=== PATIENT | female | born 1980 | race Asian ===

== ENCOUNTER 2017-12-08 15:21 | Emergency (ER) | payer OTHER ==
[~2017-12-08] VITALS: Ht 162.6 cm; Wt 55.7 kg
[2017-12-08 15:27] VITALS: TEMP 36.7; Ht 162.6 cm; Wt 55.7 kg
[2017-12-08] MEDS ORDERED: KETOROLAC TROMETHAMINE 60 MG/2 ML VIAL IM STA (15:49)
[2017-12-08] MEDS ORDERED: ACETAMINOPHEN 500 MG TAB PO STA (15:49)
[2017-12-08] MEDS ORDERED: IBUP600T44 PO (16:19)
--- NOTE | 2017-12-08 16:37 | DIAGNOSTIC IMAGING REPORT ---
LUMBAR SPINE 5 VIEWS CLINICAL HISTORY: Low back pain. FINDINGS: 5 views of the lumbar spine are compared to study dated 01/27/2010. The skeletal structures are well mineralized. There is no radiographic evidence of fracture or malalignment. Vertebral body height and alignment are maintained. The transverse and spinous processes are intact. There is no evidence of spondylolysis. Tiny anterior osteophytes are seen at several levels. Minimal disc space narrowing is seen at L5-S1. The remaining intervertebral disc spaces are well-maintained. The visualized bony pelvis appears intact. Enthesophytes arise from the anterior superior iliac spine bilaterally. There is a nonobstructed abdominal bowel gas pattern. IMPRESSION: No acute bony abnormality is seen involving the lumbosacral spine. Electronically signed by: Maxime Ho M.D. 12/08/2017 4:36 PM Dictated Date/Time: 12/08/2017 4:34 PM
[2017-12-08] MEDS ORDERED: TRAM-10 PO (16:58)
[2017-12-08] MEDS ORDERED: IBUP-1451 PO (16:58)
[2017-12-08 17:13] VITALS: BP 132/85; PULSE 84; O2SAT 100
--- NOTE | 2017-12-08 17:27 | EMERGENCY ROOM VISIT NOTE ---
History First contact with patient: 15:36 Chief Complaint: BACK INJURY Stated Complaint: BACK INJURY History of Present Illness The patient is a 37 year old female who presents to the Emergency Room with complaints of back pain. The patient reports that she has had worsening discomfort over the past 5 days. The patient reports that this injury happened at work. She is employed at [employer], and has been doing a lot of heavy lifting/assisting. The long-term is also short staffed. The patient reports that after working several days and neuro, she had progressively worsening symptoms. She does have ibuprofen and Flexeril at home that have not helped with her pain. The patient did have a similar back injury at work in early 2016. She was treated with medications and physical therapy with complete resolution of her symptoms. She denies any pain extending into the buttocks or down the legs. She denies any lower extremity weakness, saddle anesthesias or bladder/bowel for Colles'/incontinence. The patient rates her discomfort a 7 out of 10. Review of Systems 10 system review was performed and was negative except for pertinent positives and negatives as indicated in history of present illness Past Medical/Surgical History Medical Problems: (1) Asthma Surgical Problems: (1) No history of previous surgery Family History Unremarkable Social History Smoking Status: Never Smoker Alcohol Use: none Marital Status: Occupation Status: employed Current/Historical Medications Scheduled Ibuprofen Tab (Motrin), 800 MG PO Q8H Scheduled PRN Ibuprofen (Motrin), 600 MG PO Q6H PRN for Pain Tramadol (Ultram), 1-2 TAB PO Q4H PRN for Pain Physical Exam Vital Signs Date Time Temp Pulse Resp B/P (MAP) Pulse Ox O2 Delivery O2 Flow Rate FiO2 12/08/17 17:13 84 16 132/85 100 12/08/17 15:27 36.7 97 18 159/104 100 Room Air Physical Exam CONSTITUTIONAL: Healthy and well nourished. Alert and oriented X 3 with positive affect. Patient appears in mild discomfort. HEENT: Normocephalic, atraumatic. Pupils equal, round and reactive. NECK: Full active range of motion without discomfort. RESPIRATORY: Clear to auscultation bilaterally with no wheezing, crackles, rhonchi or stridor. CARDIOVASCULAR: Regular rate and rhythm with no murmurs, rubs or gallops. GASTROINTESTINAL: Bowel sounds present in all quadrants. Soft and nontender to palpation. MUSCULOSKELETAL: Examination shows tenderness to palpation of the upper and central lumbar paraspinous muscles. She has no focal tenderness over the central lumbar spine or SI joints. Negative logroll. Negative sitting straight leg raise. No palpable muscle spasm noted. INTEGUMENTARY: No rash or other significant dermatologic conditions noted. NEUROLOGIC: No focal neurologic deficits noted. Lower extremities are sensory intact. Medical Decision & Procedures ER Provider Diagnostic Interpretation: My interpretation of lumbar spine x-rays does not show any obvious fractures, subluxations or lordotic reversal. Radiologist report is as follows: LUMBAR SPINE 5 VIEWS CLINICAL HISTORY: Low back pain. FINDINGS: 5 views of the lumbar spine are compared to study dated 01/27/2010. The skeletal structures are well mineralized. There is no radiographic evidence of fracture or malalignment. Vertebral body height and alignment are maintained. The transverse and spinous processes are intact. There is no evidence of spondylolysis. Tiny anterior osteophytes are seen at several levels. Minimal disc space narrowing is seen at L5-S1. The remaining intervertebral disc spaces are well-maintained. The visualized bony pelvis appears intact. Enthesophytes arise from the anterior superior iliac spine bilaterally. There is a nonobstructed abdominal bowel gas pattern. IMPRESSION: No acute bony abnormality is seen involving the lumbosacral spine. Medications Administered Medications (Trade) Dose Ordered Sig/Cinthia Route Start Time Stop Time Status Last Admin Dose Admin Ketorolac Tromethamine (Toradol Inj) 60 mg NOW STAT IM 12/08/17 15:49 12/08/17 15:50 DC 12/08/17 16:34 60 MG Acetaminophen (Tylenol Tab) 1,000 mg NOW STAT PO 12/08/17 15:49 12/08/17 15:50 DC 12/08/17 16:34 1,000 MG Procedure ED Course Patient history and physical exam were performed. Nurse's notes were reviewed. Vital signs were reviewed, showing an elevated blood pressure 159/104. The patient appears in mild discomfort. She was administered IM Toradol and oral Tylenol. X-rays of the lumbar spine were normal. The patient reports that she is not having any relief with Flexeril. She was offered a stronger muscle relaxer, but refused. The patient was provided a prescription for ibuprofen 800 mg and Ultram 50 mg. She was also encouraged to alternate ibuprofen and Tylenol for additional pain relief. The patient was instructed to follow-up with her Worker's Compensation physician for further reevaluation and management. Work limitations were provided. The patient was happy with plan of care, voiced understanding of all discharge instructions, and rated her discomfort a 5 out of 10 at the conclusion of my exam. Blood pressure rechecked prior to discharge was 132/85. I suspect her elevated blood pressure was pain related, however the patient was encouraged to recheck her blood pressure at work, and follow-up with her family doctor with any elevated values. Medical Decision Patient presents to the emergency department with complaint of persistent lower back pain. She does have tenderness to palpation of the paraspinous muscles, and history that is consistent with an acute lumbar strain. She has no radicular symptoms at this time. Clinical exam also is not consistent with cauda equina syndrome. She gives no history to suggest spinal abscess or hematoma. At this point, I do not feel that further advanced imaging or laboratory studies are warranted. Blood Pressure Screening Patient's blood pressure: Elevated blood pressure Blood pressure disposition: Elevated BP felt to be situational Impression Primary Impression: Acute lumbar myofascial strain Additional Impressions: Work related injury Elevated blood pressure reading Departure Information Dispostion Home / Self-Care Prescriptions Tramadol (Ultram) 50 Mg Tab 1-2 TAB PO Q4H Y for Pain, #20 TAB For Initial Treatment Prov: Pranay Chairez PA 12/08/17 Ibuprofen Tab (MOTRIN) 800 Mg Tab 800 MG PO Q8H, #21 TAB For Initial Treatment Prov: Pranay Chairez PA 12/08/17 Forms HOME CARE DOCUMENTATION FORM, IMPORTANT VISIT INFORMATION Patient Instructions [facility] Additional Instructions Continue to intermittently apply heat to the lower back. Ibuprofen 800 mg and/or Tylenol 1000 mg every 8 hours. You may also alternate these medications for more effective pain relief: Ibuprofen --4 HRS--> Tylenol --4 HRS--> ibuprofen --4 HRS--> Tylenol .... Ultram if needed for additional pain relief. Continue with Flexeril 10 mg every 8 hours as needed for muscle spasm. FOR WORK: No lifting greater than 20 pounds until reevaluated by Worker's Compensation physician. Problem Qualifiers Primary Impression: Acute lumbar myofascial strain Encounter type: initial encounter Qualified Codes: S39.012A - Strain of muscle, fascia and tendon of lower back, initial encounter
== END 2017-12-08 17:10 | disposition home or self-care (01) ==
LOC: C.EDB 15:24 → C.EDD 17:10
DX: S39.012A Strain of muscle, fascia and tendon of lower back, initial encounter (principal); X50.0XXA Overexertion from strenuous movement or load, initial encounter; Y92.129 Unspecified place in nursing home as the place of occurrence of the external cause; Y99.0 Civilian activity done for income or pay; R03.0 Elevated blood-pressure reading, without diagnosis of hypertension; J45.909 Unspecified asthma, uncomplicated

== ENCOUNTER 2024-03-01 08:38 | Inpatient (IN) ==
[2024-03-01] MEDS ORDERED: LIDOCAINE 1% LOCAL 20 ML VIAL INFIL PRN (09:10)
--- OUTSIDE RECORDS SUMMARY | 2024-03-01 09:36 | External Medical Summary | Summary of Care ---
Author Name Unknown Organization [facility] Address [address] [place] [address] Phone [phone] Care Team Providers Care Lime Spreader Name Role Phone Shanice Milian MD Primary Care Provider Reason for Visit * Reason Comments Outpatient Testing Encounter Details Date Type Department Care Team (Late st Contact Info) Description 02/26/2024 11:50 AM EDT Laboratory Laboratory, [facility] [address] [place] [id number] [facility] [address] [place] [address] Hypothyroid in , antepartum Allergies No known active allergiesdocumented as of this encounter (statuses as of 02/26/2024) Medications Medication Sig Dispensed Refills Start Date End Date Status 19 Oral Tablet Take 1 Tablet by mouth in the morning. 0 Active Aspirin 81 MG Oral Capsule Take by mouth. 0 Active Levothyroxine Sodium 25 MCG Oral Tablet (Euthyrox)Indications:A cquired hypothyroidism Take 1 Tablet by mouth daily first thing in the morning AND 2 Tablets every other day. (at least 30 min prior to breakfast or other meds). 0 10/20/2023 Active documented as of this encounter (statuses as of 02/26/2024) Active Problems Problem Noted Date Diagnosed Date GBS (group B Streptococcus c arrier), +RV culture, currently 02/19/2024 Hypothyroid in , antepartum 08/01/2023 Overview: Patient states that she was diagnosed with thyroid disorder in 2021 during Fertility evaluation Managed with Levothyroxine 25 mcg daily 10/20/23: alternate with 2 tabs every other day 11/17/23: Repeat TSH 1.1, continue current dose, recheck at 28 wks Lab Results Component Value Date/Time TSH - [facility] 3.87 10/20/2023 08:55 AM TSH - [facility] 3.31 09/08/2018 03:23 PM Last Assessment & Plan: TSH Results: Lab Results Component Value Date/Time TSH - [facility] 3.87 10/20/2023 08:55 AM TSH - [facility] 1.29 08/11/2023 12:28 PM TSH - [facility] 1.28 07/09/2023 11:15 AM TSH - [facility] 3.31 09/08/2018 03:23 PM TSH - [facility] 0.78 07/15/2016 11:41 AM Medication adjusted in response to elevated TSH. If this persists on repeat TSH planned in 4 weeks, please refer back for growth sooner. AMA (advanced maternal age) multigravida 35+ Overview: Age 43 at delivery FOB age 56 Pre implantation genetic testing done: negative Declines genetic referral at this time Patient states that she and FOB had genetic screening & counseling in the past Last Assessment & Plan: Declined NIPT. conceived through in vitro fertilizati on 07/28/2023 Overview: Embryo transfer 06/25/2023 Patient's egg and partner's sperm Pre-implantation genetic testing done: negative Currently following with [facility]ertility Center until 10 weeks Taking oral and vaginal estrogen as instructed by Fertility Last Assessment & Plan: We reviewed slightly increased risk for congenital anomalies, particularly cardiac, in IVF pregnancies as well as IUGR. Etiology of these complications is unknown; perhaps related to underlying cause of the infertility vs. embryo cell culture. The risk is higher when ICSI is used. echo may not detect small VSD (<2mm) but is effective in diagnosis of most cyanotic lesions and many other clinically relevant cardiac defects. Today's exam did not suggest any evidence of cardiac abnormality. , supervision, high-risk 07/28/2023 Leiomyoma of uterus affecting , antepar agustin 07/28/2023 Overview: Uterine fibroid noted on dating scan No problems with this EXAM: US PELVIS TRANS-VAGINAL OB - 07/28/2023 12:26 pm HISTORY: dating and viability COMPARISON: Pelvic ultrasound 06/16/2023 TECHNIQUE: Real time transvaginal sonographic imaging of the pelvis was performed. FINDINGS: CROWN RUMP LENGTH: 9.5 mm equivalent to 7w 0d. MONTSE (CRL): 03/15/2024 HEART RATE: 145 bpm YOLK SAC: Seen MYOMETRIUM: Small subchorionic hemorrhage measuring 9 x 8 x 7 mm. Possible small anterior maternal fibroid measuring 8 x 7 x 6 mm. RIGHT OVARY: 0.0 cm x 2.0 cm x 1.6 cm, 0.0 ml. Unremarkable LEFT OVARY: 2.4 cm x 0.8 cm x 1.0 cm, 1.0 ml. Unremarkable MISCELLANEOUS: No significant free fluid. IMPRESSION 1. Single live intrauterine gestation with MONTSE of 03/15/2024. 2. Small subchorionic hemorrhage measuring 9 x 8 x 7 mm. 3. Possible small anterior maternal fibroid measuring 8 x 7 x 6 mm. Last Assessment & Plan: CONSIDERATIONS: We discussed the finding of uterine fibroids (also referred to as leiomyoma). Women with fibroids may have higher rates of delivery, placenta previa, placenta abruption, abnormal labor, delivery, and malpresentation at term. Fibroids may cause uterine irritability or labor/delivery especially if fibroid is degenerating. RECOMMENDATIONS: If a degenerating fibroid is causing pain prior to 32 weeks gestation and has not responded to acetaminophen or a short course of narcotics, a 48-hour course of NSAID's (i.e. Ibuprofen) may be used. If patient has any single fibroid with diameter greater than 5cm, multiple fibroids, or fibroids with retroplacental or fundal locations, we recommend Maternal Medicine ultrasound for anatomy at 19-20 weeks and then for growth at 28-30 weeks. For patients with previous myomectomy that entered the uterine cavity or involved extensive fibroid removal, we recommend delivery via at 37w0d to 38w6d gestation. 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, not intractable 09/08/2018 Estimated Date of Delivery Comme nts Yes 03/15/2024 Based on Ultraso und documented as of this encounter (statuses as of 02/26/2024) Resolved Problems Problem Noted Date Diagnosed Date Resolved Date 7 weeks gestation of 08/01/2023 02/17/2024 Pap smear for cervical cancer screening 08/28/2022 01/01/2023 HPV (human papilloma virus) infection 08/28/2022 01/07/2023 documented as of this encounter (statuses as of 02/26/2024) Immunizations Name Administration Dates Next Due TDAP (age 10 and older)(Boostrix) 12/15/2023,10/2016 documented as of this encounter Social History Tobacco Use Types Packs/Day Years Used Date Smoking Tobacco: Never Smokeless Tobacco: Never Alcohol Use Standard Drinks/Week Comments No 0 (1 standard drink = 0.6 oz pur e alcohol) PHQ-2 Answer Date Recorded PHQ Adult Total Score 0 11/13/2022 Hunger Vital Sign Answer Date Recorded Within the past 12 months, y ou worried that your food would run out before you got the money to buy more. Never true 10/06/20 23 Within the past 12 months, t he food you bought just didn't last and you didn't have money to get more. Never true 10/06/2023 [place] Depression Scale Answer Date Recorded [place] Depression Scale Total 19 01/29/2024 The thought of harming myself has occurred to me . Never 01/29/2024 Estimated Date of Delivery Comme nts Yes 03/15/2024 Based on Ultraso und Sex and Gender Information Value Date Recorded Sex Assigned at Female 07/23/2021 9:48 PM EDT Gender Identity Female 07/23/2021 9:48 PM EDT Sexual Orientation Straight 07/23/2021 9: 48 PM EDT Job Start Date Occupation Industry Not on file Not on file Not on file documented as of this encounter Plan of Treatment Upcoming Encounters Date Type Department Care Team (Late st Contact Info) Description 03/04/2024 10:15 AM EDT Office Visit Gynecology/Obstetrics Sondra Spivey [address] [place] [address] Brittaney Navarro PA-C [address] [place] [address] [place] [address] Patric Non Stress Tests [facility] [address] [place] [address] 03/11/2024 10:15 AM EDT Office Visit Gynecology/Obstetrics Sondra Spivey [address] [place] [address] Janet Han CRNP [address] [place] [address] Virginie Spivey Stress Tests [facility] [address] [place] [address] Pending Results Name Type Priority Associated Diagnoses Date /Time TSH Lab Routine Hypothyroid in , antepartum 02/26/2024 11:52 AM EDT Health Maintenance Due Date Last Done Comments Hepatitis B (1 of 3 - 19+ 3-dose series) 2000 HPV/Co-Test 2011 Diabetes Screening 07/15/2019 07/15/2016 Lipid Panel 07/15/2021 07/15/2016 COVID-19 Vaccine ( season) 2023 Influenza Vaccine (FLU shot) (#1) 2023 Mammogram 08/29/2023 08/29/2022, 07/02, 07/19/2021 Depression Screening 11/13/2023 11/13/2022 TSH 12/15/2024 12/15/2023, 10/31, 10/20/2023, Additional history exists Cervical Cancer Screening 08/28/2025 Pap Smear 08/28/2025 08/28/2022, 12/2020, 11/09/2018, Additional history exists DTaP,Tdap,and Td Vaccines (3 - Td or Tdap) 12/15/2033 12/15/2023, 07/12/2016 GARDASIL-HPV IMMUNIZATION SERIES Aged Out No longer eligible based on patient's age to complete this topic MENINGOCOCCAL (MENACTRA/MENVEO) Aged Out No longer eligible based on patient's age to complete this topic Pneumococcal Vaccine: Pediatrics (0 to 5 Years) and At-Risk Patients (6 to 64 Years) Aged Out No longer eligible based on patient's age to complete this topic documented as of this encounter Medical Devices Not on filedocumented as of this encounter Visit Diagnoses Diagnosis Hypothyroid in , antepartum Thyroid dysfunction, antepartum documented in this encounter Care Teams Lime Spreader Relationship Specialty Start Date End Date Shanice Milian MD [address] [facility] [place] [address] PCP - General Internal Medicine 11/13/22 documented as of this encounter
--- OUTSIDE RECORDS SUMMARY | 2024-03-01 09:36 | External Medical Summary | Summary of Care ---
Author Name Unknown Organization [facility] Address [address] [place] [address] Phone [phone] Care Team Providers Care Master Control Technician Name Role Phone Shanice Milian MD Primary Care Provider Reason for Visit * Reason Comments Return Visit Non Stress Test Encounter Details Date Type Department Care Team (Late st Contact Info) Description 02/26/2024 11:00 AM EDT Office Visit Gynecology/Obstetri cs Shailesh'florentino Spivey [address] [place] [address] Heather Blanchard MD [address] [place] [address] Patric Non Stress Tests [facility] [address] [place] [address] 37 weeks gestation of *; Hypothyroid in , antepartum; Multigravida of advanced maternal age in third trimester; Leiomyoma of uterus affecting , antepartum; resulting from in vitro fertilization in third trimester; Supervision of high risk in third trimester; GBS (group B Streptococcus carrier), +RV culture, currently Allergies No known active allergiesdocumented as of this encounter (statuses as of 02/28/2024) Medications Medication Sig Dispensed Refills Start Date [...] as of this encounter (statuses as of 02/28/2024) Active Problems Problem Noted Date Diagnosed Date [...] as of this encounter (statuses as of 02/28/2024) Resolved Problems Problem Noted Date Diagnosed Date Resolved Date 7 weeks gestation of 08/01/2023 02/17/2024 Pap smear for cervical cancer screening 08/28/2022 01/01/2023 HPV (human papilloma virus) infection 08/28/2022 01/07/2023 documented as of this encounter (statuses as of 02/28/2024) Immunizations Name Administration Dates Next Due TDAP [...] money to get more. Never true 10/06/2023 [place] Depression Scale Answer Date Recorded [place] Depression Scale Total 19 01/29/2024 The thought [...] on file documented as of this encounter Last Filed Vital Signs Vital Sign Reading Time Taken Comments Blood Pressure 104/74 02/26/2024 10:48 AM EDT Pulse - - Temperature - - Respiratory Rate - - Oxygen Saturation - - Inhaled Oxygen Concentration - - Weight 74.8 kg (165 lb) 02/26/2024 10:48 AM EDT Height 160 cm (5' 3") 02/26/2024 10:48 AM EDT Body Mass Index 29.23 02/26/2024 10:48 AM EDT documented in this encounter Progress Notes * Heather Blanchard MD - 02/26/2024 11:44 AM EDT Ceci Andrade is a 43 year old female here for her routine OB appointment at 37w3d. Patient offers no complaints today. She refers feeling nauseous after drinking milk yesterday. Her Estimated Date of Delivery: 03/15/24 REVIEW OF SYSTEMS: She affirms movement. Denies vaginal bleeding, LOF, regular contractions, N/V, headaches [place] Depression Scale: No data recorded [place] suicide question and score: Score of 3 = Yes, quite often. Score of 2 = Sometimes. Score of 1 = Hardly ever No data recorded ASSESSMENT assessment with Non-stress Test completed on 02/26/2024 at 37 weeks 3 days gestation for indication of AMA heart baseline: 125 bpm Variability: Moderate Decelerations: absent Accelerations: present Contractions: None NST start time: 1048 hrs NST stop time: 1120 hrs NST strip reviewed, interpreted, and approved by OB provider, Dr. Blanchard. NST strip stored in clinic storage file PHYSICAL EXAM: Filed Vitals: 02/26/24 1048 BP: 104/74 Weight: 74.8 kg (165 lb) Height: 1.6 m (5' 3") +FHT 125 Fundal height 36 cm ASSESSMENT/PLAN: (O99.280, E03.9) Hypothyroid in , antepartum Plan: TSH (O09.523) Multigravida of advanced maternal age in third trimester Plan: Delivery at 39 weeks (O34.10, D25.9) Leiomyoma of uterus affecting , antepartum Plan: No intervention is indicted at this time. (O09.819) conceived through in vitro fertilization Plan: The patient has been following up with [facility]. (O09.90) , supervision, high-risk Plan: Patient is status post MFM consult. (O99.820) GBS (group B Streptococcus carrier), +RV culture, currently Plan: Patient will need antibiotics during labor. (Z3A.37) 37 weeks gestation of (primary encounter diagnosis) Plan: - labor precautions and kick counts reviewed - RTO in 1 week Heather Blanchard MD documented in this encounter Plan of Treatment Upcoming Encounters Date Type Department Care Team (Late st Contact Info) Description 03/04/2024 10:15 AM EDT Office Visit Gynecology/Obstetrics Sondra Spivey [address] [place] [address] Brittaney Navarro PA-C [address] [place] [address] [place] [address] Patric, Non Stress Tests [facility] [address] [place] [address] 03/11/2024 10:15 AM EDT Office Visit Gynecology/Obstetrics Sondra Spivey [address] [place] [address] Janet Han CRNP [address] [place] [address] Spivey, Non Stress Tests [facility] [address] [place] [address] Health Maintenance Due Date Last Done Comments Hepatitis B (1 of 3 - 19+ 3-dose series) 2000 HPV/Co-Test 2011 Diabetes Screening 07/15/2019 07/15/2016 Lipid Panel 07/15/2021 07/15/2016 COVID-19 Vaccine ( season) 2023 Influenza Vaccine (FLU shot) (#1) 2023 Mammogram 08/29/2023 08/29/2022, 07/02, 07/19/2021 Depression Screening 11/13/2023 11/13/2022 TSH 02/25/2025 02/26/2024, 12/01, 11/17/2023, Additional history exists Cervical Cancer Screening 08/28/2025 Pap Smear 08/28/2025 08/28/2022, 09/0 12/2020, 11/09/2018, Additional history exists DTaP,Tdap,and Td [...] Not on filedocumented as of this encounter Results * TSH (02/26/2024 11:52 AM EDT) TSH 1.35 0.27 - 4.20 uIU/mL 02/26/2024 11:17 PM EDT LABORATORY [facility] Blood Venous blood specimen / Unknown Venipuncture / Unknown 02/26/2024 11:52 AM EDT 02/26/2024 11:52 AM EDT Heather Blanchard MD LAB BLOOD ORD ERABLES LABORATORY [facility] [address] [facility] [place] [address] documented in this encounter Visit Diagnoses Diagnosis 37 weeks gestation of - Primary state, incidental Hypothyroid in , antepartum Thyroid dysfunction, antepartum Multigravida of advanced maternal age in third trimester Leiomyoma of uterus affecting , antepartum resulting from in vitro fertilization in third trimester Supervision of high risk in third trimester Unspecified high-risk GBS (group B Streptococcus carrier), +RV culture, currently Supervision of other high-risk documented in this encounter Care Teams Master Control Technician Relationship Specialty Start Date End Date Shanice Milian MD [address] [facility] [place] [address] PCP - General Internal Medicine 11/13/22 documented as of this encounter
--- OUTSIDE RECORDS SUMMARY | 2024-03-01 09:37 | External Medical Summary | Summary of Care ---
Author Name Unknown Organization [facility] Address [address] [facility] [address] Phone [phone] Care Team Providers Care Door Machine Operator Name Role Phone Shanice Milian MD Primary Care Provider Reason for Visit * Reason Comments Return Visit Encounter Details Date Type Department Care Team (Latest Contact Info) Description 01/29/2024 1:30 PM EST Office Visit Gynecology/Obstetric s Sondra Spivey [address] [place] [address] Ekaterina Bennett PA-C [address] [place] [address] Supervision of high risk in third trimester*; Multigravida of advanced maternal age in third trimester; resulting from in vitro fertilization in third trimester; Leiomyoma of uterus affecting , antepartum; Hypothyroid in , antepartum Allergies No known active allergiesdocumented as of this encounter (statuses as of 01/29/2024) Medications Medication Sig Dispensed Refills Start Date [...] as of this encounter (statuses as of 01/29/2024) Active Problems Problem Noted Date Diagnosed Date Hypothyroid in , antepartum 08/01/2023 Overview: Patient [...] weeks, please refer back for growth sooner. 7 weeks gestation of 08/01/2023 AMA (advanced maternal age) multigravida 35+ Overview: [...] as of this encounter (statuses as of 01/29/2024) Resolved Problems Problem Noted Date Diagnosed Date Resolved Date Pap smear for cervical cancer screening 08/28/2022 01/01/2023 HPV (human papilloma virus) infection 08/28/2022 01/07/2023 documented as of this encounter (statuses as of 01/29/2024) Immunizations Name Administration Dates Next Due TDAP [...] money to get more. Never true 10/06/2023 [place] Depression Scale Answer Date Recorded [place] Depression Scale Total 19 01/29/2024 The thought [...] Sign Reading Time Taken Comments Blood Pressure 118/78 01/29/2024 1:14 PM EST Pulse - - Temperature - - Respiratory Rate - - Oxygen Saturation - - Inhaled Oxygen Concentration - - Weight 71.7 kg (158 lb) 01/29/2024 1:14 PM EST Height 160 cm (5' 3") 01/29/2024 1:14 PM EST Body Mass Index 27.99 01/29/2024 1:14 PM EST documented in this encounter Progress Notes * Ekaterina Bennett PA-C - 01/29/2024 1:28 PM EST 33w3d Doing well, denies VB, LOF, contractions. Pos FM. Reviewed [place]. Reports feels she is managing okay, does cry daily. Sister is support system. Has started Unisom taking about twice weekly to help sleep. Feels this is helping as sleep quality better. Avoids on days she has to work next day. Reviewed treatment for depression/anxiety she declines at this time. NST to start weekly at 38 weeks RTC in 2 weeks Ekaterina Bennett PA-C documented in this encounter Nursing Notes * Jeaneth Thorne LPN - 01/29/2024 1:18 PM EST 33w3d Denies concerns. documented in this encounter Plan of Treatment Upcoming Encounters Date Type Department Care Team (Late st Contact Info) Description 02/09/2024 9:30 AM EDT Office Visit Gynecology/Obstetrics [facility] [address] [facility] [place] [address] Loni Eller, [address] [place] [address] Health Maintenance Due Date Last Done Comments Hepatitis B (1 of 3 - 19+ 3-dose series) 2000 HPV/Co-Test 2011 Diabetes Screening 07/15/2019 07/15/2016 Lipid Panel 07/15/2021 07/15/2016 COVID-19 Vaccine (24 season) 2023 Influenza Vaccine (FLU shot) (#1) [...] as of this encounter Visit Diagnoses Diagnosis Supervision of high risk in third trimester- Primary Unspecified high-risk Multigravida of advanced maternal age in third trimester resulting from in vitro fertilization in third trimester Leiomyoma of uterus affecting , antepartum Hypothyroid in , antepartum Thyroid dysfunction, antepartum documented in this encounter Care Teams Door Machine Operator Relationship Specialty Start Date End Date Shanice Milian MD [address] [place] [address] PCP - General Internal Medicine 11/13/22 documented as of this encounter
--- OUTSIDE RECORDS SUMMARY | 2024-03-01 09:37 | External Medical Summary | Summary of Care ---
Author Name Unknown Organization [facility] Address [address] [place] [facility] [place] [place] [address] Phone [phone] Care Team Providers Care It Business Process Architect Name Role Phone Shanice Milian MD Primary Care Provider Reason for Visit * Reason Comments Return Visit Encounter Details Date Type Department Care Team (Late st Contact Info) Description 02/17/2024 9:15 AM EDT Office Visit Gynecology/Obstetri cs Sondra Spivey [address] [facility] [place] [address] Isabela Ingram CRNP [address] [facility] [address] Virginie Spivey Stress Tests [facility] [address] [place] [address] Supervision of high risk in third trimester*; Multigravida of advanced maternal age in third trimester; resulting from in vitro fertilization in third trimester; Leiomyoma of uterus affecting , antepartum; Hypothyroid in , antepartum Allergies No known active allergiesdocumented as of this encounter (statuses as of 02/17/2024) Medications Medication Sig Dispensed Refills Start Date [...] as of this encounter (statuses as of 02/17/2024) Active Problems Problem Noted Date Diagnosed Date [...] as of this encounter (statuses as of 02/17/2024) Resolved Problems Problem Noted Date Diagnosed Date Resolved Date 7 weeks gestation of 08/01/2023 02/17/2024 Pap smear for cervical cancer screening 08/28/2022 01/01/2023 HPV (human papilloma virus) infection 08/28/2022 01/07/2023 documented as of this encounter (statuses as of 02/17/2024) Immunizations Name Administration Dates Next Due TDAP [...] money to get more. Never true 10/06/2023 [place] Depression Scale Answer Date Recorded [place] Depression Scale Total 19 01/29/2024 The thought [...] Reading Time Taken Comments Blood Pressure 118/78 02/17/2024 9:07 AM EDT Pulse - - Temperature - - Respiratory Rate - - Oxygen Saturation - - Inhaled Oxygen Concentration - - Weight 73.5 kg (162 lb) 02/17/2024 9:07 AM EDT Height - - Body Mass Index 28.7 02/09/2024 9:22 AM EDT documented in this encounter Progress Notes * Isablea Ingram CRNP - 02/17/2024 9:09 AM EDT 36w1d Good movement. Occasional cramping but no regular ctx, leaking, bleeding. Followed by MFM for growth scans. Discussed peds, will likely use [facility]. Provided labor instructions and CBE class information. Reviewed MFM recommendation for delivery by [facility] due to AMA and IVF , pt agreeable to scheduling this. GBS swab today. Continue weekly visits/NSTs. Compensation And Benefits Administrator Documentation Provider requested children's tutor nursery. Name of children's tutor nursery: Kusum Guillermo LPN ASSESSMENT assessment with Non-stress Test completed on 02/17/2024 at 36w 1d gestation for indication of advanced maternal age and IVF heart baseline: 130 bpm Variability: Moderate Decelerations: absent Accelerations: present Contractions: irritability NST start time: 904 NST stop time: 929 NST strip reviewed, interpreted, and approved by OB provider, PONCHO Hernández . NST strip stored in clinic storage file documented in this encounter Plan of Treatment Upcoming Encounters Date Type Department Care Team (Late st Contact Info) Description 02/26/2024 11:00 AM EDT Office Visit Gynecology/Obstetrics Sondra Spivey [address] [place] [address] Heather Blanchard MD [address] [facility] [address] Patric, Non Stress Tests Romario [address] [place] [address] 03/04/2024 10:15 AM EDT Office Visit Gynecology/Obstetrics Sondra Spivey [address] [place] [address] Brittaney Navarro PA-C [address] [place] [address] Spivey, Non Stress Tests Romario [address] [place] [address] 03/11/2024 10:15 AM EDT Office Visit Gynecology/Obstetrics Sondra Spivey [address] [place] [address] Janet Han CRNP [address] [place] [address] Patric, Non Stress Tests Romario [address] [place] [address] Pending Results Name Type Priority Associated Diagnoses Date /Time GROUP B STREP CULTURE/PCR Lab Routine Supervision of high risk in third trimester 02/17/2024 10:04 AM EDT Scheduled Orders Name Type Priority Associated Diagnoses Orde r Schedule GROUP B STREP CULTURE/PCR Lab Routine Supervision of high risk in third trimester Expected: 02/17/2024, Expires: 02/16/2025 Health Maintenance Due Date Last Done Comments [...] antepartum documented in this encounter Care Teams It Business Process Architect Relationship Specialty Start Date End Date Shanice Milian MD [address] [facility] [place] [address] PCP - General Internal Medicine 11/13/22 documented as of this encounter
--- OUTSIDE RECORDS SUMMARY | 2024-03-01 09:37 | External Medical Summary | Summary of Care ---
Author Name Unknown Organization [facility] Address [address] [place] [address] Phone [phone] Care Team Providers Care Environmental Services Lead Name Role Phone Shanice Milian MD Primary Care Provider Encounter Details Date Type Department Care Team (Latest Contact Info) Description 01/15/2024 2:30 PM EST Office Visit Special Services Supervisor Obstetrics [facility], [address] [place] [address] Cynthia Alvarado, DO [address] [place], [place] [phone] resulting from in vitro fertilization in third trimester*; Multigravida of advanced maternal age in third trimester; 31 weeks gestation of ; Ultrasound for screening for growth restriction Allergies No known active allergiesdocumented as of this encounter (statuses as of 01/15/2024) Medications Medication Sig Dispensed Refills Start Date [...] as of this encounter (statuses as of 01/15/2024) Active Problems Problem Noted Date Diagnosed Date [...] as of this encounter (statuses as of 01/15/2024) Resolved Problems Problem Noted Date Diagnosed Date Resolved Date Pap smear for cervical cancer screening 08/28/2022 01/01/2023 HPV (human papilloma virus) infection 08/28/2022 01/07/2023 documented as of this encounter (statuses as of 01/15/2024) Immunizations Name Administration Dates Next Due TDAP [...] money to get more. Never true 10/06/2023 Estimated Date of Delivery Comme nts Yes 03/15/2024 Based on Ultraso und Sex and Gender Information Value Date Recorded Sex Assigned at Female 07/23/2021 9:48 PM EDT Gender Identity Female 07/23/2021 9:48 PM EDT Sexual Orientation Straight 07/23/2021 9: 48 PM EDT Job Start Date Occupation Industry Not on file Not on file Not on file documented as of this encounter Progress Notes * Cynthia Alvarado DO - 01/15/2024 3:27 PM EST Ceci presented today at 31w3d for an ultrasound for the following indications: resulting from in vitro fertilization in third trimester Multigravida of advanced maternal age in third trimester 31 weeks gestation of Ultrasound for screening for growth restriction Ultrasound summary: Patient presented at 31w 6d for growth assessment. Normal growth with EFW 1757 g at 26%ile. Normal JCARLOS at 12.8 cm. Cephalic presentation. I reviewed the ultrasound images. Ceci was given the opportunity to meet with me if she had any questions. Please refer to the ultrasound report for additional details about today's ultrasound examination. RECOMMENDATIONS: Follow up with MFM for ultrasound as clinically indicated. Weekly NSTs at 38 weeks. See prior formal MFM consultation note. Thank you for allowing us to participate in the care of this patient. Please call with any questions. Cynthia Alvarado DO 01/15/2024 3:27 PM documented in this encounter Plan of Treatment Upcoming Encounters Date Type Department Care Team (Late st Contact Info) Description 01/16/2024 4:15 PM EST Office Visit Gynecology/Obstetrics [facility] [address] [place] [address] Yon Hair MD [address] [place] [address] Health Maintenance Due Date Last Done Comments Hepatitis B (1 of 3 - 3-dose series) 1981 COVID-19 Vaccine (#1) 1981 HPV/Co-Test 2011 Diabetes Screening 07/15/2019 07/15/2016 Lipid Panel 07/15/2021 07/15/2016 Influenza Vaccine (FLU shot) (#1) 2023 Mammogram [...] as of this encounter Visit Diagnoses Diagnosis resulting from in vitro fertilization in third trimester- Primary Multigravida of advanced maternal age in third trimester 31 weeks gestation of state, incidental Ultrasound for screening for growth restriction screening for growth retardation using ultrasonics documented in this encounter Care Teams Environmental Services Lead Relationship Specialty Start Date End Date Shanice Milian MD [address] [place] [address] PCP - General Internal Medicine 11/13/22 documented as of this encounter
--- OUTSIDE RECORDS SUMMARY | 2024-03-01 09:37 | External Medical Summary ---
Author Name Unknown Address Unknown Organization [id number]:[facility] [address] [facility] [address] Laboratory Report Ordering Provider Test Date Status JORGE GRANDE 12/15/2023 12:07:50 Final Observation Date Value Abnormality Reference (Units ) Status WBC, Total 12/15/2023 12:07:50 9.94 4.00-10.8 0 (K/uL) Final RBC 12/15/2023 12:07:50 4.35 3.85-5.15 (M/uL) Final Hemoglobin 12/15/2023 12:07:50 13.8 12.0-15.3 (g/dL) Final Anemia reflex testing trigge rs on a HGB < 12.0 for Females and HGB < 13.0 for Males in accordance with the WHO Anemia Guidelines HCT 12/15/2023 12:07:50 40.2 36.0-45.2 (%) Final MCV 12/15/2023 12:07:50 92.4 81.5-97.5 (fL) Final MCH 12/15/2023 12:07:50 31.7 27.0-34.0 (pg) Final MCHC 12/15/2023 12:07:50 34.3 32.0-36.0 (g/dL) Final RDW 12/15/2023 12:07:50 12.6 11.5-15.5 (%) Final Platelets 12/15/2023 12:07:50 207 140-400 (K /uL) Final MPV 12/15/2023 12:07:50 10.4 6.6-11.1 ( fL) Final Nucleated erythrocytes/100 leukocytes [Ratio] in Blood by Automated count 12/15/2023 12:07:50 0 <=0 (/100 WBCs) Fi nal Performing Location [facility] [address] [facility] [address]
--- OUTSIDE RECORDS SUMMARY | 2024-03-01 09:37 | External Medical Summary | Summary of Care ---
Author Name Unknown Organization [facility] Address [address] [facility] [address] Phone [phone] Care Team Providers Care Sheet Metal Shop Helper Name Role Phone Shanice Milian MD Primary Care Provider Reason for Visit * Reason Comments Return Visit Encounter Details Date Type Department Care Team (Latest Contact Info) Description 01/16/2024 4:15 PM EST Office Visit Gynecology/Obstetric [facility] [address] [place] [address] Yon Hair MD [address] [place] [address] Multigravida of advanced maternal age in third trimester*; resulting from in vitro fertilization in third trimester; Supervision of high risk in third trimester; Leiomyoma of uterus affecting , antepartum; Hypothyroid in , antepartum Allergies No known active allergiesdocumented as of this encounter (statuses as of 01/16/2024) Medications Medication Sig Dispensed Refills Start Date [...] as of this encounter (statuses as of 01/16/2024) Active Problems Problem Noted Date Diagnosed Date [...] as of this encounter (statuses as of 01/16/2024) Resolved Problems Problem Noted Date Diagnosed Date Resolved Date Pap smear for cervical cancer screening 08/28/2022 01/01/2023 HPV (human papilloma virus) infection 08/28/2022 01/07/2023 documented as of this encounter (statuses as of 01/16/2024) Immunizations Name Administration Dates Next Due TDAP [...] Sign Reading Time Taken Comments Blood Pressure 112/60 01/16/2024 4:10 PM EST Pulse - - Temperature - - Respiratory Rate - - Oxygen Saturation - - Inhaled Oxygen Concentration - - Weight 71.2 kg (157 lb) 01/16/2024 4:10 PM EST Height 160 cm (5' 3") 01/16/2024 4:10 PM EST Body Mass Index 27.81 01/16/2024 4:10 PM EST documented in this encounter Progress Notes * Yon Hair MD - 01/16/2024 4:22 PM EST 1st time seeing pt Doing well AMA RTC 2 weeks * Karen Garcia LPN - 01/16/2024 4:11 PM EST 31w4d Abd cramping from time to time documented in this encounter Plan of Treatment Upcoming Encounters Date Type Department Care Team (Late st Contact Info) Description 01/29/2024 1:30 PM EST Office Visit Gynecology/Obstetrics [facility] [address] [place] [address] Ekaterina Bennett PA-C [address] [place] [address] Health Maintenance Due Date Last Done Comments Hepatitis B (1 of 3 - 19+ 3-dose series) 2000 HPV/Co-Test 2011 Diabetes Screening 07/15/2019 07/15/2016 Lipid Panel 07/15/2021 07/15/2016 COVID-19 Vaccine (2022-24 season) 2023 Influenza Vaccine (FLU shot) (#1) 2023 Mammogram 08/29/2023 08/29/2022, 0805/2021, 07/19/2021 Depression Screening 11/13/2023 11/13/2022 TSH 12/15/2024 [...] as of this encounter Visit Diagnoses Diagnosis Multigravida of advanced maternal age in third trimester- Primary resulting from in vitro fertilization in third trimester Supervision of high risk in third trimester Unspecified high-risk Leiomyoma of uterus affecting , antepartum Hypothyroid in , antepartum Thyroid dysfunction, antepartum documented in this encounter Care Teams Sheet Metal Shop Helper Relationship Specialty Start Date End Date Shanice Milian MD [address] [place] [address] PCP - General Internal Medicine 11/13/22 documented as of this encounter
--- OUTSIDE RECORDS SUMMARY | 2024-03-01 09:37 | External Medical Summary ---
Author Name Unknown Address Unknown Organization K01:[facility]ATORY [facility] - [address] [place] [address] Laboratory Report Ordering Provider Test Date Status JOSE MARTIN BURCH 02/26/2024 11:52:14 Final Observation Date Value Abnormality Reference (Units ) Status TSH 02/26/2024 11:52:14 1.35 0.27-4.20 (uIU/mL) Final Performing Location LAB[facility]ATORY [facility] - [address] [place] [address]
--- OUTSIDE RECORDS SUMMARY | 2024-03-01 09:37 | External Medical Summary | Summary of Care ---
Author Name Unknown Organization [facility] Address [address] [facility] [address] Phone [phone] Care Team Providers Care Commodity Buyer Name Role Phone Shanice Milian MD Primary Care Provider Encounter Details Date Type Department Care Team (Late st Contact Info) Description 01/29/2024 [facility]phone [facility] [address] [place] [address] Ekaterina Bennett PA-C [address] [place] [address] Allergies No known active allergiesdocumented as of [...] money to get more. Never true 10/06/2023 [place] Depression Scale Answer Date Recorded [place] Depression Scale Total 19 01/29/2024 The thought [...] on file documented as of this encounter Miscellaneous Notes * Telephone Encounter - Agustina Vizcaino MED ASSIST - 01/29/2024 4:08 PM EST Will schedule with pt at 02/08 return appt * Telephone Encounter - Yvonne Gaston OSA - 01/29/2024 1:52 PM EST Needs nst starting at 38 weeks documented in this encounter Plan of Treatment Upcoming Encounters Date Type Department Care Team (Late st Contact Info) Description 02/09/2024 9:30 AM EDT Office Visit Gynecology/Obstetrics [facility] [address] [facility] [place] [address] Loni Eller [facility] [address] [facility] [place] [address] Health Maintenance Due Date Last Done Comments Hepatitis B (1 of 3 - 19+ 3-dose series) 2000 HPV/Co-Test 2011 Diabetes Screening 07/15/2019 07/15/2016 Lipid Panel 07/15/2021 07/15/2016 COVID-19 Vaccine ( season) 2023 Influenza Vaccine (FLU shot) (#1) 2023 Mammogram 08/29/2023 08/29/2022, 07/02, 07/19/2021 Depression Screening 11/13/2023 11/13/2022 TSH 12/15/2024 12/15/2023, 10/31, 10/20/2023, Additional history exists Cervical Cancer Screening 08/28/2025 Pap Smear 08/28/2025 08/28/2022, 0912/2020, 11/09/2018, Additional history exists DTaP,Tdap,and Td Vaccines [...] Not on filedocumented as of this encounter Care Teams Commodity Buyer Relationship Specialty Start Date End Date Shanice Milian MD [address] [place] [address] PCP - General Internal Medicine 11/13/22 documented as of this encounter
--- OUTSIDE RECORDS SUMMARY | 2024-03-01 09:37 | External Medical Summary ---
Author Name Unknown Address Unknown Organization [id number]:[facility] [place] - [facility] [address] [place] [address] Laboratory Report Ordering Provider Test Date Status BRIDGER ALCALA 02/17/2024 10:04:22 Final Observation Date Value Abnormality Reference (Units ) Status Streptococcus agalactiae DNA [Presence] in Specimen by DEANGELO with probe detection 02/17/2024 10:04:22 Positive Abnormal Negative Final Group B Streptococcus detect ed by culture-enhanced PCR (amplified probe).
The collection of vaginal/rectal swab specimen combinations (FDA approved specimen type) is optimal for the detection of Group B Streptococcus. Single source collection (vaginal only or rectal only) or alternate specimen sources may lead to false negative results. Performing Location [facility]ORY [facility] - [address] [place] [address]
--- OUTSIDE RECORDS SUMMARY | 2024-03-01 09:37 | External Medical Summary ---
Author Name Unknown Address Unknown Organization K01:[facility] - [address] [place] [address] Laboratory Report Ordering Provider Test Date Status JORGE GRANDE 12/15/2023 12:07:50 Final Observation Date Value Abnormality Reference (Units ) Status Treponema pallidum Ab [Presence] in Serum by Immunoassay 12/15/2023 12:07:50 Nonreactive Nonreactive Final No serologic evidence of syp hilis. No additional testing clinicially indicated at this time. Consider repeat testing in 2-4 weeks if acute or primary syphilis is suspected. Performing Location [facility] - [address] [place] [address]
--- OUTSIDE RECORDS SUMMARY | 2024-03-01 09:37 | External Medical Summary | Summary of Care ---
Author Name Unknown Organization [facility] Address [address] [place] [address] Phone [phone] Care Team Providers Care Food Service Manager Name Role Phone Shanice Milian MD Primary Care Provider Reason for Visit * Reason Comments Return Visit Encounter Details Date Type Department Care Team (Late st Contact Info) Description 02/09/2024 9:30 AM EDT Office Visit Gynecology/Obstetri [facility] [address] [place] [address] Loni Eller, [facility] [address] [place] [address] Multigravida of advanced maternal age in third trimester*; resulting from in vitro fertilization in third trimester; Supervision of high risk in third trimester; Leiomyoma of uterus affecting , antepartum; Hypothyroid in , antepartum Allergies No known active allergiesdocumented as of this encounter (statuses as of 02/12/2024) Medications Medication Sig Dispensed Refills Start Date [...] as of this encounter (statuses as of 02/12/2024) Active Problems Problem Noted Date Diagnosed Date [...] as of this encounter (statuses as of 02/12/2024) Resolved Problems Problem Noted Date Diagnosed Date Resolved Date Pap smear for cervical cancer screening 08/28/2022 01/01/2023 HPV (human papilloma virus) infection 08/28/2022 01/07/2023 documented as of this encounter (statuses as of 02/12/2024) Immunizations Name Administration Dates Next Due TDAP [...] money to get more. Never true 10/06/2023 [place] Depression Scale Answer Date Recorded [place] Depression Scale Total 19 01/29/2024 The thought [...] Sign Reading Time Taken Comments Blood Pressure 116/78 02/09/2024 9:22 AM EDT Pulse - - Temperature - - Respiratory Rate - - Oxygen Saturation - - Inhaled Oxygen Concentration - - Weight 72.6 kg (160 lb) 02/09/2024 9:22 AM EDT Height 160 cm (5' 3") 02/09/2024 9:22 AM EDT Body Mass Index 28.34 02/09/2024 9:22 AM EDT documented in this encounter Progress Notes * Loni Eller CNM - 02/09/2024 9:38 AM EDT Ceci Andrade is a 43 year old female here for her routine OB appointment at 35w0d Her Estimated Date of Delivery: 03/15/24 REVIEW OF SYSTEMS: She affirms movement. Denies vaginal bleeding, LOF, contractions, N/V, and RUQ pain. +Headaches upon waking, go away on their own. Small amounts of blurry vision. Difficulty with reading. Not seeing spots. Does not last long. States her eyes adjust quickly. PHYSICAL EXAM: Filed Vitals: 02/09/24 0922 BP: 116/78 Weight: 72.6 kg (160 lb) Height: 1.6 m (5' 3") +FHT 130-140bpm Fundal height: 33cm ASSESSMENT/PLAN: (O09.819) conceived through in vitro fertilization (O09.93) Supervision of high risk in third trimester (O34.10, D25.9) Leiomyoma of uterus affecting , antepartum (O99.280, E03.9) Hypothyroid in , antepartum Plan: -Continue current dose of thyroid medication (O09.529) AMA (advanced maternal age) multigravida 35+ (primary encounter diagnosis) Plan: -reviewed warning signs of pre-eclampsia; patient to notify provider for any ongoing STREET, vision changes, or RUQ pain -Start NSTs at 36 weeks due to IVF - labor precautions and kick counts reviewed - GBS swab collected today - RTO in 1 week Loni Eller CNM documented in this encounter Nursing Notes * Jeaneth Thorne LPN - 02/09/2024 9:25 AM EDT 35w0d Denies concerns. documented in this encounter Plan of Treatment Upcoming Encounters Date Type Department Care Team (Late st Contact Info) Description 02/17/2024 9:15 AM EDT Office Visit Gynecology/Obstetrics [facility] [address] [place] [address] Isabela Ingram CRNP [address] [place] [address] Patric Non Stress Tests [facility] [address] [place] [address] 02/26/2024 11:00 AM EDT Office Visit Gynecology/Obstetrics [facility] [address] [place] [address] Heather Blanchard MD [address] [address] Patric Non Stress Tests [facility] [address] [place] [address] 03/04/2024 10:15 AM EDT Office Visit Gynecology/Obstetrics [facility] [address] [place] [address] Brittaney Navarro PA-C [address] [place] [address] Patric, Non Stress Tests [facility] [address] [place] [address] 03/11/2024 10:15 AM EDT Office Visit Gynecology/Obstetrics [facility] Spivey [address] [place] [address] Janet Han CRNP [address] [place] [address] Patric, Non Stress Tests [facility] [address] [place] [address] Health Maintenance Due Date Last Done Comments Hepatitis B (1 of 3 - 19+ 3-dose series) 2000 HPV/Co-Test 2011 Diabetes Screening 07/15/2019 07/15/2016 Lipid Panel 07/15/2021 07/15/2016 COVID-19 Vaccine (2022- season) 2023 Influenza Vaccine (FLU shot) (#1) [...] antepartum documented in this encounter Care Teams Food Service Manager Relationship Specialty Start Date End Date Shanice Milian MD [address] [place] [address] PCP - General Internal Medicine 11/13/22 documented as of this encounter
--- OUTSIDE RECORDS SUMMARY | 2024-03-01 09:37 | External Medical Summary | Summary of Care ---
Author Name Unknown Organization [facility] Address [address] [place] [address] Phone [phone] Care Team Providers Care Visualization Developer Name Role Phone Shanice Milian MD Primary Care Provider Encounter Details Date Type Department Care Team (Latest Contact Info) Description 01/15/2024 2:30 PM EST Office Visit [facility], [address] [place] [address] Cynthia Alvarado, DO [address] [place], [place] [id number] resulting from in vitro fertilization in third [...] 01/16/2024 4:15 PM EST Office Visit Gynecology/Obstetrics [facility] [address] [place] [address] Yon Hair MD [address] [place] [address] Health Maintenance Due Date Last Done Comments [...] ultrasonics documented in this encounter Care Teams Visualization Developer Relationship Specialty Start Date End Date Shanice Milian MD [address] [place] [address] PCP - General Internal Medicine 11/13/22 documented as of this encounter
--- OUTSIDE RECORDS SUMMARY | 2024-03-01 09:37 | External Medical Summary | Summary of Care ---
Author Name Unknown Organization [facility] Address [address] [place] [address] Phone [phone] Care Team Providers Care Tag Press Operator Name Role Phone Shanice Milian MD Primary Care Provider Reason for Visit * Reason Comments Outpatient Testing Encounter Details Date Type Department Care Team (Late st Contact Info) Description 12/15/2023 11:20 AM EST Laboratory Laboratory, [facility] [address] [place] [phone] [facility] [address] [place] [address] Acquired hypothyroidism; Positive test; Supervision of high risk in third trimester; Hypothyroid in , antepartum Allergies No known active allergiesdocumented as of this encounter (statuses as of 12/15/2023) Medications Medication Sig Dispensed Refills Start Date [...] as of this encounter (statuses as of 12/15/2023) Active Problems Problem Noted Date Diagnosed Date [...] as of this encounter (statuses as of 12/15/2023) Resolved Problems Problem Noted Date Diagnosed Date Resolved Date Pap smear for cervical cancer screening 08/28/2022 01/01/2023 HPV (human papilloma virus) infection 08/28/2022 01/07/2023 documented as of this encounter (statuses as of 12/15/2023) Immunizations Name Administration Dates Next Due TDAP [...] file Not on file Not on file Travel History Travel Start Travel End [place] 11/27/2023 12/13/2023 documented as of this encounter Plan of Treatment Upcoming Encounters Date Type Department Care Team (Late st Contact Info) Description 12/31/2023 7:45 AM EST Office Visit Gynecology/Obstetrics [facility] [address] [place] [address] Ekaterina Bennett PA-C [address] [place] [address] 01/15/2024 2:30 PM EST Imaging [facility] Imaging, [facility] [address] [place] [phone] Pending Results Name Type Priority Associated Diagnoses Date /Time T4, FREE Lab Routine Acquired hypothyroidism Positive test 12/15/2023 12:07 PM EST SYPHILIS ANTIBODY SCREEN WITH REFLEX TO RPR Lab Routine Supervision of high risk in third trimester 12/15/2023 12:07 PM EST CBC WITH WBC DIFFERENTIAL AND ANEMIA REFLEX WORKUP Lab Routine Supervision of high risk in third trimester 12/15/2023 12:07 PM EST 50-G GESTATIONAL GLUCOSE, 1 HOUR Lab Routine Supervision of high risk in third trimester 12/15/2023 12:07 PM EST TSH WITH FREE T4 IF INDICATED Lab Routine Hypothyroid in , antepartum 12/15/2023 12:07 PM EST SYPHILIS ANTIBODY SCREEN Lab Routine Supervision of high risk in third trimester 12/15/2023 12:07 PM EST ANEMIA CBC Lab Routine Supervision of high risk in third trimester 12/15/2023 12:07 PM EST DIFFERENTIAL, AUTOMATED Lab Routine Supervision of high risk in third trimester 12/15/2023 12:07 PM EST ANEMIA REFLEX CHEMISTRY HOLD Lab Routine Supervision of high risk in third trimester 12/15/2023 12:07 PM EST Health Maintenance Due Date Last Done Comments Hepatitis B (1 of 3 - 3-dose series) 1981 COVID-19 Vaccine (#1) 1981 HPV/Co-Test 2011 Diabetes Screening 07/15/2019 07/15/2016 Lipid Panel 07/15/2021 07/15/2016 Influenza Vaccine (FLU shot) (#1) 2023 Mammogram 08/29/2023 08/29/2022, 07/02, 07/19/2021 Depression Screening 11/13/2023 11/13/2022 TSH 11/17/2024 11/17/2023, 10/02, 08/11/2023, Additional history exists Cervical Cancer Screening 08/28/2025 [...] as of this encounter Visit Diagnoses Diagnosis Acquired hypothyroidism Unspecified hypothyroidism Positive test examination or test, positive result Supervision of high risk in third trimester Unspecified high-risk Hypothyroid in , antepartum Thyroid dysfunction, antepartum documented in this encounter Care Teams Tag Press Operator Relationship Specialty Start Date End Date Shanice Milian MD [address] [place] [address] PCP - General Internal Medicine 11/13/22 documented as of this encounter
--- OUTSIDE RECORDS SUMMARY | 2024-03-01 09:37 | External Medical Summary | Summary of Care ---
Author Name Unknown Organization [facility] Address [address] [place] [place] [place] [address] Phone [phone] Care Team Providers Care Rustic Fence Builder Name Role Phone Shanice Milian MD Primary Care Provider Reason for Visit * Reason Comments Return Visit Encounter Details Date Type Department Care Team (Late st Contact Info) Description 02/17/2024 9:15 AM EDT Office Visit Gynecology/Obstetri cs [facility] [address] [facility] [place] [address] Isabela Ingram CRNP [address] [facility] [address] Virginie Spivey Stress Tests [facility] [address] [place] [address] Supervision of high risk in third trimester*; [...] money to get more. Never true 10/06/2023 [place] Depression Scale Answer Date Recorded [place] Depression Scale Total 19 01/29/2024 The thought [...] documented in this encounter Progress Notes * Isabela Ingram CRNP - 02/17/2024 9:09 AM EDT 36w1d Good movement. Occasional cramping but no regular ctx, leaking, bleeding. Followed by MFM for growth scans. Discussed peds, will likely use [facility]. Provided labor instructions and CBE class information. Reviewed MFM recommendation for delivery by [facility] due to AMA and IVF , pt agreeable to scheduling this. GBS swab today. Continue weekly visits/NSTs. Seasonal Clerk Documentation Provider requested district agent. Name of district agent: Kusum Guillermo LPN ASSESSMENT assessment with Non-stress [...] Spivey [address] [place] [address] Heather Blanchard MD [address] [facility] [place] [address] Patric, Non Stress Tests [facility] [address] [place] [address] 03/04/2024 10:15 AM EDT Office Visit Gynecology/Obstetrics [facility] Sp[facility] [address] [place] [address] Brittaney Navarro PA-C [address] [place] [address] Spivey, Non Stress Tests [facility] [address] [place] [address] 03/11/2024 10:15 AM EDT Office Visit Gynecology/Obstetrics [facility] Spive[facility] [address] [place] [address] Janet Han CRNP [address] [place] [address] Patric, Non Stress Tests [facility] [address] [place] [address] Pending Results Name Type Priority Associated Diagnoses [...] antepartum documented in this encounter Care Teams Rustic Fence Builder Relationship Specialty Start Date End Date Shanice Milian MD [address] [facility] [place] [address] PCP - General Internal Medicine 11/13/22 documented as of this encounter
--- OUTSIDE RECORDS SUMMARY | 2024-03-01 09:37 | External Medical Summary | Summary of Care ---
Author Name Unknown Organization [facility] Address [address] [facility] [place] [address] Phone [phone] Care Team Providers Care Underwater Roboticist Name Role Phone Shanice Milian MD Primary Care Provider Reason for Visit * Reason Comments Return Visit Encounter Details Date Type Department Care Team (Latest Contact Info) Description 01/01/2024 9:45 AM EST Office Visit Gynecology/Obstetric s [facility] [address] [place] [address] Janet Han CRNP [address] [facility] [address] Multigravida of advanced maternal age in third trimester*; resulting from in vitro fertilization in third trimester; Supervision of high risk in third trimester; Leiomyoma of uterus affecting , antepartum; Hypothyroid in , antepartum Allergies No known active allergiesdocumented as of this encounter (statuses as of 01/01/2024) Medications Medication Sig Dispensed Refills Start Date [...] as of this encounter (statuses as of 01/01/2024) Active Problems Problem Noted Date Diagnosed Date [...] as of this encounter (statuses as of 01/01/2024) Resolved Problems Problem Noted Date Diagnosed Date Resolved Date Pap smear for cervical cancer screening 08/28/2022 01/01/2023 HPV (human papilloma virus) infection 08/28/2022 01/07/2023 documented as of this encounter (statuses as of 01/01/2024) Immunizations Name Administration Dates Next Due TDAP [...] file Travel History Travel Start Travel End [facility] 11/27/2023 12/13/2023 documented as of this encounter Last Filed Vital Signs Vital Sign Reading Time Taken Comments Blood Pressure 108/62 01/01/2024 9:49 AM EST Pulse - - Temperature - - Respiratory Rate - - Oxygen Saturation - - Inhaled Oxygen Concentration - - Weight 68.9 kg (152 lb) 01/01/2024 9:49 AM EST Height 160 cm (5' 3") 01/01/2024 9:49 AM EST Body Mass Index 26.93 01/01/2024 9:49 AM EST documented in this encounter Progress Notes * Janet Han CRNP - 01/01/2024 10:05 AM EST 29w3d Feeling well overall. Still stress at home, crying. Reassured crying is not going to affect baby. Wondering about position of baby, explaind this is not worrisome at this stage of . Baby is active. Denies contractions, bleeding, or LOF. Taking meds as prescribed. PONCHO Vargas * Karen Garcia LPN - 01/01/2024 9:49 AM EST 29w3d Denies any issues documented in this encounter Plan of Treatment Upcoming Encounters Date Type Department Care Team (Late st Contact Info) Description 01/15/2024 8:45 AM EST Office Visit Gynecology/Obstetrics [facility] [address] [place] [address] Janet Han CRNP [address] [place] [address] 01/15/2024 2:30 PM EST Imaging Maternal Medicine Imaging, [facility] Spivey [address] [place] [address] Health Maintenance Due Date Last Done Comments [...] antepartum documented in this encounter Care Teams Underwater Roboticist Relationship Specialty Start Date End Date Shanice Milian MD [address] [place] [address] PCP - General Internal Medicine 11/13/22 documented as of this encounter
--- OUTSIDE RECORDS SUMMARY | 2024-03-01 09:37 | External Medical Summary | Summary of Care ---
Author Name Unknown Organization [facility] Address [address] [facility] [address] Phone [phone] Care Team Providers Care Assayer Helper Name Role Phone Shanice Milian MD Primary Care Provider Reason for Visit * Reason Comments Return Visit Encounter Details Date Type Department Care Team (Latest Contact Info) Description 12/15/2023 11:45 AM EST Office Visit Gynecology/Obstetric s [facility] [address] [place] [address] Ekaterina Bennett PA-C [address] [place] [address] Supervision of high risk in third trimester*; Multigravida of advanced maternal age in third trimester; resulting from in vitro fertilization in third trimester; Leiomyoma of uterus affecting , antepartum; Hypothyroid in , antepartum; Need for gmjnrntrhv-rlknxno-buv tussis (Tdap) vaccine Allergies No known active allergiesdocumented as of [...] Date Smoking Tobacco: Never Smokeless Tobacco: Never Tobacco Cessation:Counseling Given: Not Answered Alcohol Use Standard Drinks/Week Comments No 0 [...] file Travel History Travel Start Travel End [facility] 11/27/2023 12/13/2023 documented as of this encounter Last Filed Vital Signs Vital Sign Reading Time Taken Comments Blood Pressure 128/86 12/15/2023 11:26 AM EST Pulse - - Temperature - - Respiratory Rate - - Oxygen Saturation - - Inhaled Oxygen Concentration - - Weight 65 kg (143 lb 3.2 oz) 12/15/2023 11:26 AM EST Height 160 cm (5' 3") 12/15/2023 11:26 AM EST Body Mass Index 25.37 12/15/2023 11:26 AM EST documented in this encounter Progress Notes * Ekaterina Bennett PA-C - 12/15/2023 12:12 PM EST 27w0d Completing third tri labs today. Counseled on Tdap, accepts. Has been struggling increase stress at home. Has counselor, appointment currently on 12/25, she is going to reach out to them about sooner appointment. Declines additional assistance at this time. Reviewed ways to manage and improve stress/anxiety. Feels stress impacting sleep and eating at times. Encouraged small frequent meals if needed. Unisomat bedtime to help with sleep as needed. RTC in 2 weeks Ekaterina Bennett PA-C documented in this encounter Nursing Notes * Ifeoma Gonzalez RN - 12/15/2023 11:57 AM EST Patient here for TDAP injection. Patient doing well no complaints. Injection given IM as ordered. Patient tolerated well. Patient to follow up as directed. Patient instructed to call if any complications. Patient verbalized understanding of instructions given and her follow up appt for 2 weeks Injection site: Left Deltoid Medication Source: Dispensed stock medication * Ifeoma Gonzalez RN - 12/15/2023 11:28 AM EST Patient here for ARGELIA 27w0d Doing glucose today Having trouble sleeping TDAP today documented in this encounter Plan of Treatment Upcoming Encounters Date Type Department Care Team (Late st Contact Info) Description 12/31/2023 7:45 AM EST Office Visit Gynecology/Obstetrics [facility] [address] [place] [address] Ekaterina Bennett PA-C [address] [place] [address] 01/15/2024 2:30 PM EST Imaging Maternal Medicine Imaging, [facility] Spivey [address] [place] [phone] Health Maintenance Due Date Last Done Comments [...] Hypothyroid in , antepartum Thyroid dysfunction, antepartum Need for kivpjgrctp-rrfeyyd-wvnhfxkbm (Tdap) vaccine Need for prophylactic vaccination with combined surzfnyvtb-hmdypef-zvolkitkg (DTP) vaccine documented in this encounter Care Teams Assayer Helper Relationship Specialty Start Date End Date Shanice Milian MD [address] [place] [address] PCP - General Internal Medicine 11/13/22 documented as of this encounter
--- OUTSIDE RECORDS SUMMARY | 2024-03-01 09:38 | External Medical Summary | Summary of Care ---
Author Name Unknown Organization [facility] Address [address] [place] [address] Phone [phone] Care Team Providers Care Silk Trimmer Name Role Phone Shanice Milian MD Primary Care Provider Reason for Visit * Reason Comments Return Visit Encounter Details Date Type Department Care Team (Late st Contact Info) Description 10/20/2023 8:45 AM EST Office Visit Gynecology/Obstetri Sondra Spivey [address] [place] [address] Isabela Ingram CRNP [address] [place] [address] Supervision of high risk in second trimester*; Multigravida of advanced maternal age in second trimester; resulting from in vitro fertilization in second trimester; Leiomyoma of uterus affecting , antepartum; Hypothyroid in , antepartum Allergies No known active allergiesdocumented as of this encounter (statuses as of 10/20/2023) Medications Medication Sig Dispensed Refills Start Date End Date Status 19 Oral Tablet Take 1 Tablet by mouth in the morning. 0 Active Levothyroxine Sodium 25 MCG Oral Tablet (Euthyrox)Indications: Acquired hypothyroidism Take 1 Tablet by mouth daily first thing in the morning. (at least 30 min prior to breakfast or other meds) 30 Tablet 11 05/28/2023 Active Aspirin 81 MG Oral Capsule Take by mouth. 0 Active documented as of this encounter (statuses as of 10/20/2023) Active Problems Problem Noted Date Diagnosed Date Hypothyroid in , antepartum 08/01/2023 Overview: Patient states that she was diagnosed with thyroid disorder in 2021 during Fertility evaluation Managed with Levothyroxine 25 mcg daily Lab Results Component Value Date/Time TSH - [facility] 1.29 08/11/2023 12:28 PM TSH - [facility] 3.31 09/08/2018 03:23 PM Last Assessment & Plan: TSH Results: Lab Results Component Value Date/Time TSH - [facility] 1.29 08/11/2023 12:28 PM TSH - [facility] 1.28 07/09/2023 11:15 AM TSH - [facility] 0.18 (L) 05/26/2023 12:56 PM TSH - [facility] 3.31 09/08/2018 03:23 PM TSH - [facility] 0.78 07/15/2016 11:41 AM 7 weeks gestation of 08/01/2023 AMA (advanced maternal age) multigravida 35+ Overview: Age 43 at delivery FOB age 56 Pre implantation genetic testing done: negative Declines genetic referral at this time Patient states that she and FOB had genetic screening & counseling in the past Last Assessment & Plan: CONSIDERATIONS: We reviewed the most pertinent aspects of the following: Advanced maternal age (AMA) refers to a woman with a nolen who will be at the age of 35 or older at the estimated time of delivery and may be associated with increased morbidity. After discussion of the genetic screening/testing options, the patient reports that they has pre-implantation genetic screening done on embryo, which was negative. Patient does not feel need for NIPT, but is aware that this is available. In addition to the risk of chromosomal abnormalities, there is an increased risk of congenital/structural anomalies. RECOMMENDATIONS: Recommend MFM anatomy ultrasound at 19-20 weeks gestation. conceived through in vitro fertilizati on 07/28/2023 Overview: Embryo transfer 06/25/2023 Patient's egg and partner's sperm Pre-implantation genetic testing done: negative Currently following with [facility] until 10 weeks Taking oral and vaginal estrogen as instructed by Fertility Last Assessment & Plan: CONSIDERATIONS: Assisted reproductive technology (ART) includes in vitro fertilization (IVF), intrauterine insemination (IUI), Gamete intrafallopian transfer (GIFT) and Zygote intrafallopian transfer (ZIFT). 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 Discussed with patient that even for nolen ART pregnancies, the relative risk of complications such as growth restriction, preeclampsia, prematurity, placental abruption, and mortality are increased, although clearly not independent of infertility itself. Neurodevelopmental outcomes of children conceived by ART appear to be normal. Risk of congenital abnormalities is increased by about 1/3 over the population baseline risk of 2-4%. There is approximately 1% of cardiac defects associated with pregnancies resulting from IVF. This is likely due to the fertilization process. RECOMMENDATIONS: Recommend Maternal Medicine (MFM) level II anatomy scan at 19-20 weeks. Recommend echocardiography by MFM at 22-24 weeks gestation for patients who have had IVF. Recommend MFM growth evaluation if indicated by other existing or maternal conditions. Recommend ultrasound for growth at 28-32 weeks. Recommend weekly NSTs to begin at 36 weeks. Consider delivery at 39 weeks. , supervision, high-risk 07/28/2023 Leiomyoma of uterus [...] as of this encounter (statuses as of 10/20/2023) Resolved Problems Problem Noted Date Diagnosed Date Resolved Date Pap smear for cervical cancer screening 08/28/2022 01/01/2023 HPV (human papilloma virus) infection 08/28/2022 01/07/2023 documented as of this encounter (statuses as of 10/20/2023) Immunizations Name Administration Dates Next Due TDAP (age 10 and older)(Boostrix) 07/12/2016 documented as of this encounter Social History [...] money to buy more. Never true 10/06/20 Within the past 12 months, t he [...] Sign Reading Time Taken Comments Blood Pressure 108/70 10/20/2023 8:37 AM EST Pulse - - Temperature - - Respiratory Rate - - Oxygen Saturation - - Inhaled Oxygen Concentration - - Weight 61.1 kg (134 lb 12.8 oz) 10/20/2023 8:37 AM EST Height - - Body Mass Index 23.32 08/19/2023 11:25 AM EDT documented in this encounter Progress Notes * Kusum Guillermo LPN - 10/20/2023 8:38 AM EST 19w0d Denies vaginal bleeding/rom Absent movement When should next TSH be done? * Isabela Ingram CRNP - 10/20/2023 8:36 AM EST 19w0d No bleeding/cramping. No movement yet. Recheck TSH today. Discussed weight gain. Fundus at expected height. Seeing MFM tomorrow for anatomy scan. RTO 4 weeks. PONCHO Hernández documented in this encounter Plan of Treatment Upcoming Encounters Date Type Department Care Team (Late st Contact Info) Description 10/20/2023 9:10 AM EST Laboratory Laboratory, [facility] [address] [facility] [place] [phone] [facility] [place] [address] Hypothyroid in , antepartum 10/21/2023 1:30 PM EST Office Visit Chain Link Fence Installer Obstetrics Maternal Medicine, [place] [address] [place] [address] [facility] [address] [place] [address] 10/21/2023 1:30 PM EST Imaging [facility], [place] [address] [place] [address] 11/17/2023 11:45 AM EST Office Visit Gynecology/Obstetric s [facility] [address] [place] [address] Ekaterina Bennett PA-C [facility] [place] [address] Pending Results Name Type Priority Associated Diagnoses Date /Time TSH WITH FREE T4 IF INDICATED Lab Routine Hypothyroid in , antepartum 10/20/2023 8:55 AM EST Scheduled Orders Name Type Priority Associated Diagnoses Orde r Schedule TSH WITH FREE T4 IF INDICATED Lab Routine Hypothyroid in , antepartum Expected: 10/20/2023, Expires: 10/20/2024 Health Maintenance Due Date Last Done Comments Hepatitis B (1 of 3 - 3-dose series) 1981 COVID-19 Vaccine (#1) 1981 HPV/Co-Test 2011 Lipid Panel 07/15/2021 07/15/2016 Influenza Vaccine (FLU shot) (#1) 2023 Mammogram 08/29/2023 08/29/2022, 07/02, 07/19/2021 Depression Screening 11/13/2023 11/13/2022 TSH 08/11/2024 08/11/2023, 08/0 08/2023, 05/26/2023, Additional history exists Cervical Cancer Screening 08/28/2025 Pap Smear 08/28/2025 08/28/2022, 0912/2020, 11/09/2018, Additional history exists DTaP,Tdap,and Td Vaccines (2 - Td or Tdap) 07/12/2026 07/12/2016 GARDASIL-HPV IMMUNIZATION SERIES Aged Out No [...] Diagnoses Diagnosis Supervision of high risk in second trimester- Primary Unspecified high-risk Multigravida of advanced maternal age in second trimester resulting from in vitro fertilization in second trimester Leiomyoma of uterus affecting , antepartum Hypothyroid in , antepartum Thyroid dysfunction, antepartum Hypothyroid in , antepartum Thyroid dysfunction, antepartum documented in this encounter Care Teams Silk Trimmer Relationship Specialty Start Date End Date Shanice Milian MD 132 [facility] [place] [address] PCP - General Internal Medicine 11/13/22 documented as of this encounter
--- OUTSIDE RECORDS SUMMARY | 2024-03-01 09:38 | External Medical Summary ---
Author Name Unknown Address Unknown Organization [id number]:LABORATORY [facility] [place] [address] - [address] [place] [address] Laboratory Report Ordering Provider Test Date Status JORGE GRANDE 12/15/2023 12:07:50 Final Observation Date Value Abnormality Reference (Units ) Status Glucose [Moles/volume] in Serum or Plasma --1 hour post 50 g glucose PO 12/15/2023 12:07:50 96 70-129 (mg/dL) Final Performing Location LAB[facility]ATORY [facility] [place] [address] - [address] [place] [address]
--- OUTSIDE RECORDS SUMMARY | 2024-03-01 09:38 | External Medical Summary | Summary of Care ---
Author Name Unknown Organization [facility] Address [address] [place] [address] Phone [phone] Care Team Providers Care Railroad Switchman Name Role Phone Shanice Milian MD Primary Care Provider Reason for Visit * Reason Comments Outpatient Testing Encounter Details Date Type Department Care Team (Late st Contact Info) Description 10/20/2023 9:10 AM EST Laboratory Laboratory, [facility] [address] [place] [phone] [facility] [address] [place] [address] Hypothyroid in , antepartum Allergies No known [...] to breakfast or other meds) 30 Tablet 05/28/2023 Active Aspirin 81 MG Oral Capsule [...] Care Team (Late st Contact Info) Description 10/21/2023 1:30 PM EST Office Visit Biazzi Nitrator Operator Obstetrics Maternal Medicine, [place] [address] [place] [address] Cynthia Alvarado [address] [place] [address] 10/21/2023 1:30 PM EST Imaging Radiology [facility] [address] [place] [address] 11/17/2023 11:45 AM EST Office Visit Gynecology/Obstetrics [facility] [address] [place] [address] Ekaterina Bennett PA-C [address] [place] [address] Pending Results Name Type Priority Associated Diagnoses Date /Time TSH WITH FREE T4 IF INDICATED Lab Routine Hypothyroid in , antepartum 10/20/2023 8:55 AM EST Health Maintenance Due Date Last Done Comments Hepatitis B (1 of 3 - 3-dose series) 1981 COVID-19 Vaccine (#1) 1981 HPV/Co-Test 2011 Lipid Panel 07/15/2021 07/15/2016 Influenza Vaccine (FLU shot) (#1) 2023 Mammogram 08/29/2023 08/29/2022, 07/02, 07/19/2021 Depression Screening 11/13/2023 11/13/2022 TSH 08/11/2024 08/11/2023, 080 08/2023, 05/26/2023, Additional history exists Cervical Cancer Screening 08/28/2025 Pap Smear 08/28/2025 08/28/2022, 090 12/2020, 11/09/2018, Additional history exists DTaP,Tdap,and Td [...] antepartum documented in this encounter Care Teams Railroad Switchman Relationship Specialty Start Date End Date Shanice Milian MD [address] [place] [address] PCP - General Internal Medicine 11/13/22 documented as of this encounter
--- OUTSIDE RECORDS SUMMARY | 2024-03-01 09:38 | External Medical Summary | Summary of Care ---
Author Name Unknown Organization [facility] Address [address] [place] [facility] [place] [address] Phone [phone] Care Team Providers Care Concrete Layer Name Role Phone Shanice Milian MD Primary Care Provider Reason for Visit * Reason Onset Date Comments Test Results 10/20/2023 Encounter Details Date Type Department Care Team (Late st Contact Info) Description 10/20/2023 Telephone Gynecology/Obstetrics [facility] [address] [place] [address] Isabela Ingram CRNP [address] [place] [address] Test Results Allergies No known active allergiesdocumented as of this encounter (statuses as of 10/20/2023) Medications Medication Sig Dispensed Refills Start Date End Date Status 19 Oral Tablet Take 1 Tablet by mouth in the morning. 0 Active Aspirin 81 MG Oral Capsule Take by mouth. 0 Active Levothyroxine Sodium 25 MCG Oral Tablet (Euthyrox)Indication s:Acquired hypothyroidism Take 1 Tablet by mouth daily first thing in the morning AND 2 Tablets every other day. (at least 30 min prior to breakfast or other meds). 0 10/20/2023 Active Levothyroxine Sodium 25 MCG Oral Tablet (Euthyrox)Indication s:Acquired hypothyroidism Take 1 Tablet by mouth daily first thing in the morning. (at least 30 min prior to breakfast or other meds) 30 Tablet 11 05/28/2023 3 Discontinue d(Refill) documented as of this encounter (statuses as of 10/20/2023) Active Problems Problem Noted Date Diagnosed Date Hypothyroid in , antepartum 08/01/2023 Overview: Patient states that she was diagnosed with thyroid disorder in 2021 during Fertility evaluation Managed with Levothyroxine 25 mcg daily 10/20/23: alternate with 2 tabs every other day Lab Results Component Value Date/Time TSH - [...] encounter Miscellaneous Notes * Telephone Encounter - Ifeoma Gonzalez RN - 10/20/2023 2:33 PM EST Patient called and made aware of below. Patient verbalized understanding. * Telephone Encounter - Isabela Ingram CRNP - 10/20/2023 2:19 PM EST TSH is slightly high for . Increase levoxyl dose to 2 tabs every other day (and 1 tab on alternative days). Will plan to recheck TSH in 4 weeks. PONCHO Hernández documented in this encounter Plan of Treatment Upcoming Encounters Date Type Department Care Team (Late st Contact Info) Description 10/21/2023 1:30 PM EST Office Visit Central Office Inspector Obstetrics Maternal Medicine, [place] [address] [place] [address] Cynthia Alvarado DO [address] [place] [address] 10/21/2023 1:30 PM EST Imaging Radiology [facility], [place] [address] [place] [address] 11/17/2023 11:45 AM EST Office Visit Gynecology/Obstetrics [facility] [address] [place] [address] Ekaterina Bennett PA-C [address] [place] [address] Health Maintenance Due Date Last Done Comments Hepatitis B (1 of 3 - 3-dose series) 1981 COVID-19 Vaccine (#1) 1981 HPV/Co-Test 2011 Lipid Panel 07/15/2021 07/15/2016 Influenza Vaccine (FLU shot) (#1) 2023 Mammogram 08/29/2023 08/29/2022, 07/02, 07/19/2021 Depression Screening 11/13/2023 11/13/2022 TSH 10/20/2024 10/20/2023, 08/01, 07/09/2023, Additional history exists Cervical Cancer Screening 08/28/2025 [...] Visit Diagnoses Diagnosis Acquired hypothyroidism Unspecified hypothyroidism documented in this encounter Care Teams Concrete Layer Relationship Specialty Start Date End Date Shanice Milian MD [address] [place] [address] PCP - General Internal Medicine 11/13/22 documented as of this encounter
--- OUTSIDE RECORDS SUMMARY | 2024-03-01 09:38 | External Medical Summary | Summary of Care ---
Author Name Unknown Organization [facility] Address [address] [place] [address] Phone [phone] Care Team Providers Care Waiter Waitress Name Role Phone Shanice Milian MD Primary Care Provider Reason for Visit * Reason Onset Date Comments Advice 10/06/2023 Encounter Details Date Type Department Care Team (Late st Contact Info) Description 10/06/2023 Telephone Gynecology/Obstetrics [address] [phone] Milagro Naylor MD [address] [place] [address] Advice Allergies No known active allergiesdocumented as of this encounter (statuses as of 10/06/2023) Medications Medication Sig Dispensed Refills Start Date [...] as of this encounter (statuses as of 10/06/2023) Active Problems Problem Noted Date Diagnosed Date [...] as of this encounter (statuses as of 10/06/2023) Resolved Problems Problem Noted Date Diagnosed Date Resolved Date Pap smear for cervical cancer screening 08/28/2022 01/01/2023 HPV (human papilloma virus) infection 08/28/2022 01/07/2023 documented as of this encounter (statuses as of 10/06/2023) Immunizations Name Administration Dates Next Due TDAP [...] encounter Miscellaneous Notes * Telephone Encounter - Jackeline Gutierrez RN - 10/06/2023 12:38 PM EST Pt concerned because she is not showing. Advised that each is different. Pt asking to usegas x. ADvised that this is fine. Pt asking if tylenol is okay. Advised that this is fine. documented in this encounter Plan of Treatment Upcoming Encounters Date Type Department Care Team (Late st Contact Info) Description 10/20/2023 8:45 AM EST Office Visit Gynecology/Obstetrics [facility] [address] [place] [address] TobierIsabela CRNP [address] [place] [address] 10/21/2023 1:30 PM EST Office Visit Housing And Residence Life Director Obstetrics Maternal Medicine, [place] [address] [place] [address] Cynthia Alvarado, [address] [place] [address] 10/21/2023 1:30 PM EST Imaging Radiology [facility] [address] [facility] [place] [address] Health Maintenance Due Date Last Done Comments Hepatitis B (1 of 3 - 3-dose series) 1981 COVID-19 Vaccine (#1) 1981 HPV/Co-Test 2011 Lipid Panel 07/15/2021 07/15/2016 Influenza Vaccine (FLU shot) (#1) 2023 Mammogram 08/29/2023 08/29/2022, 08/2 05/2021, 07/19/2021 Depression Screening 11/13/2023 11/13/2022 TSH 08/11/2024 08/11/2023, 0808/2023, 05/26/2023, Additional history exists Cervical Cancer Screening [...] filedocumented as of this encounter Care Teams Waiter Waitress Relationship Specialty Start Date End Date Shanice Milian MD [address] [place] [address] PCP - General Internal Medicine 11/13/22 documented as of this encounter
--- OUTSIDE RECORDS SUMMARY | 2024-03-01 09:38 | External Medical Summary | Summary of Care ---
Author Name Unknown Organization [facility] Address [address] [place] [address] Phone [phone] Care Team Providers Care Email Marketing Processor Name Role Phone Shanice Milian MD Primary Care Provider Reason for Visit * Reason Comments Outpatient Testing Encounter Details Date Type Department Care Team (Late st Contact Info) Description 11/17/2023 12:40 PM EST Laboratory Laboratory, [facility] [address] [place] [phone] [facility] [address] [place] [address] Hypothyroid in , antepartum Allergies No known active allergiesdocumented as of this encounter (statuses as of 11/17/2023) Medications Medication Sig Dispensed Refills Start Date [...] as of this encounter (statuses as of 11/17/2023) Active Problems Problem Noted Date Diagnosed Date [...] as of this encounter (statuses as of 11/17/2023) Resolved Problems Problem Noted Date Diagnosed Date Resolved Date Pap smear for cervical cancer screening 08/28/2022 01/01/2023 HPV (human papilloma virus) infection 08/28/2022 01/07/2023 documented as of this encounter (statuses as of 11/17/2023) Immunizations Name Administration Dates Next Due TDAP [...] Description 12/15/2023 11:20 AM EST Laboratory Laboratory, [address] [place] [address] [facility] [place] [address] [place] [address] 12/15/2023 11:45 AM EST Office Visit Gynecology/Obstetrics [facility] [place] [address] [place] [address] Ekaterina Bennett PA-C [address] [place] [address] 01/15/2024 2:30 PM EST Imaging [facility]aternal Medicine [facility], [facility] [address] [place] [phone] Pending Results Name Type Priority Associated Diagnoses Date /Time TSH WITH FREE T4 IF INDICATED Lab Routine Hypothyroid in , antepartum 11/17/2023 12:24 PM EST Health Maintenance Due Date Last [...] antepartum documented in this encounter Care Teams Email Marketing Processor Relationship Specialty Start Date End Date Shanice Milian MD [address] [place] [address] PCP - General Internal Medicine 11/13/22 documented as of this encounter
--- OUTSIDE RECORDS SUMMARY | 2024-03-01 09:38 | External Medical Summary ---
Author Name Unknown Address Unknown Organization [id number]:[facility] [place] [address] [facility] [address] [place] [address] Laboratory Report Ordering Provider Test Date Status JORGE GRANDE 12/15/2023 12:07:50 Final Observation Date Value Abnormality Reference (Units ) Status SYNC LEUKOCYTES IN BLOOD BY AUTOMATED COUNT 12/15/2023 12:07:50 9.94 4.00-10.80 (K/uL) Final Segs 12/15/2023 12:07:50 83.1 Above high normal 40.0-75.0 (%) Final Lymphs % 12/15/2023 12:07:50 8.0 Below low normal 18.0-42.0 (%) Final Monos 12/15/2023 12:07:50 6.8 1.0-11.0 (%) Final Eosinophils 12/15/2023 12:07:50 1.3 0.0-6.0 (%) Final Basos 12/15/2023 12:07:50 0.3 0.0-2.0 (%) Final Immature Granulocyte, Percent 12/15/2023 12:07:50 0.5 0.0-2.0 (%) Final Absolute Segs 12/15/2023 12:07:50 8.25 Above high normal 1.80-7.70 (K/uL) Final Lymphs, absolute 12/15/2023 12:07:50 0.80 Below low normal 1.00-4.80 (K/ul) Final Monos, Abs 12/15/2023 12:07:50 0.68 0.00-1.10 (K/uL) Final Eos, Abs 12/15/2023 12:07:50 0.13 0.00-0.70 (K/uL) Final Basos, Abs 12/15/2023 12:07:50 0.03 0.00-0.20 (K/uL) Final Immature Granulocytes, Number 12/15/2023 12:07:50 0.05 0.00-0.20 (K/uL) Final Performing Location [facility] [place] [address] [facility] [address]
--- OUTSIDE RECORDS SUMMARY | 2024-03-01 09:38 | External Medical Summary | Summary of Care ---
Author Name Unknown Organization [facility] Address [address] [facility] [address] Phone [phone] Care Team Providers Care Manager Camp Name Role Phone Shanice Milian MD Primary Care Provider Encounter Details Date Type Department Care Team (Late st Contact Info) Description 11/18/2023 Orders Only Gynecology/Obstetrics Sond[facility] Spivey [address] [place] [address] Ekaterina Bennett PA-C [address] [place] [address] Hypothyroid in , antepartum* Allergies No known active allergiesdocumented as of this encounter (statuses as of 11/18/2023) Medications Medication Sig Dispensed Refills Start Date [...] as of this encounter (statuses as of 11/18/2023) Active Problems Problem Noted Date Diagnosed Date Hypothyroid in , antepartum 08/01/2023 Overview: Patient states that she was diagnosed with thyroid disorder in 2022 during Fertility evaluation Managed with Levothyroxine 25 [...] as of this encounter (statuses as of 11/18/2023) Resolved Problems Problem Noted Date Diagnosed Date Resolved Date Pap smear for cervical cancer screening 08/28/2022 01/01/2023 HPV (human papilloma virus) infection 08/28/2022 01/07/2023 documented as of this encounter (statuses as of 11/18/2023) Immunizations Name Administration Dates Next Due TDAP [...] Description 12/15/2023 11:20 AM EST Laboratory Laboratory, [facility] [address] [place] [address] Rosina Spivey [address] [place] [address] 12/15/2023 11:45 AM EST Office Visit Gynecology/Obstetrics Sondra Spivey [address] [place] [address] Ekaterina Bennett PA-C [address] [place] [address] 01/15/2024 2:30 PM EST Imaging Maternal Medicine Imaging, [place] Spivey [address] [place] [phone] Scheduled Orders Name Type Priority Associated Diagnoses Orde r Schedule TSH WITH FREE T4 IF INDICATED Lab Routine Hypothyroid in , antepartum Expected: 12/15/2023, Expires: 11/18/2024 Health Maintenance Due Date Last Done Comments [...] encounter Visit Diagnoses Diagnosis Hypothyroid in , antepartum- Primary Thyroid dysfunction, antepartum documented in this encounter Care Teams Manager Camp Relationship Specialty Start Date End Date Shanice Milian MD [address] [place] [address] PCP - General Internal Medicine 11/13/22 documented as of this encounter
--- OUTSIDE RECORDS SUMMARY | 2024-03-01 09:38 | External Medical Summary ---
Author Name Unknown Address Unknown Organization K01:[facility] [place] - [address] [place] [address] Laboratory Report Ordering Provider Test Date Status BRIDGER ALCALA 10/20/2023 08:55:12 Final Observation Date Value Abnormality Reference (Units ) Status TSH 10/20/2023 08:55:12 3.87 0.27-4.20 (uIU/mL) Final Performing Location LABORATORY [facility] - [address] [place] [address]
--- OUTSIDE RECORDS SUMMARY | 2024-03-01 09:38 | External Medical Summary ---
Author Name Unknown Address Unknown Organization K01:LABORATORY [facility] [place] - [address] [place] [address] Laboratory Report Ordering Provider Test Date Status JORGE GRANDE 12/15/2023 12:07:50 Final Observation Date Value Abnormality Reference (Units ) Status TSH 12/15/2023 12:07:50 0.57 0.27-4.20 (uIU/mL) Final Performing Location [facility] - [address] [place] [address]
--- OUTSIDE RECORDS SUMMARY | 2024-03-01 09:38 | External Medical Summary | Summary of Care ---
Author Name Unknown Organization [facility] Address [address] [place] [address] Phone [phone] Care Team Providers Care Test Baker Name Role Phone Shanice Milian MD Primary Care Provider Reason for Visit * Reason Comments Ultrasound Encounter Details Date Type Department Care Team (Latest Contact Info) Description 10/21/2023 1:30 PM EST Office Visit Airplane Engineer Obstetrics Maternal Medicine, [place] [address] [place] [address] Cynthia Alvarado, [address] [place] [address] resulting from in vitro fertilization in second trimester*; Hypothyroid in , antepartum; Multigravida of advanced maternal age in second trimester; Encounter for anatomic survey; Encounter for screening for congenital cardiac abnormalities in fetus Allergies No known active allergiesdocumented as of this encounter (statuses as of 10/21/2023) Medications Medication Sig Dispensed Refills Start Date [...] as of this encounter (statuses as of 10/21/2023) Active Problems Problem Noted Date Diagnosed Date [...] as of this encounter (statuses as of 10/21/2023) Resolved Problems Problem Noted Date Diagnosed Date Resolved Date Pap smear for cervical cancer screening 08/28/2022 01/01/2023 HPV (human papilloma virus) infection 08/28/2022 01/07/2023 documented as of this encounter (statuses as of 10/21/2023) Immunizations Name Administration Dates Next Due TDAP [...] of this encounter Progress Notes * Cynthia Alvarado, - 10/21/2023 4:04 PM EST MATERNAL MEDICINE VISIT Ceci Andrade presented today at 19w1d for an ultrasound and follow-up of her high risk . She was seen for the following indications: Problem List Items Addressed This Visit Endocrine/Metabolic Hypothyroid in , antepartum TSH Results: Lab Results Component Value Date/Time TSH - [facility] 3.87 10/20/2023 08:55 AM TSH - [facility] 1.29 08/11/2023 12:28 PM TSH - [facility] 1.28 07/09/2023 11:15 AM TSH - [facility] 3.31 09/08/2018 03:23 PM TSH - [facility] 0.78 07/15/2016 11:41 AM Medication adjusted in response to elevated TSH. If this persists on repeat TSH planned in 4 weeks,please refer back for growth sooner. Other AMA (advanced maternal age) multigravida 35+ Declined NIPT. conceived through in vitro fertilization - Primary We reviewed slightly increased risk for congenital anomalies, particularly cardiac, in IVF pregnancies as well as IUGR. Etiology of these complications is unknown; perhaps related to underlying causeof the infertility vs. embryo cell culture. The risk is higher when ICSI is used. echo may not detect small VSD (<2mm) but is effective in diagnosis of most cyanotic lesions and many other clinically relevant cardiac defects. Today's exam did not suggest any evidence of cardiac abnormality. Other Visit Diagnoses Encounter for anatomic survey Encounter for screening for congenital cardiac abnormalities in fetus We reviewed today's ultrasound findings. Normal growth with no ultrasonic evidence of structural or cardiac abnormalities. (For full details, please refer to ultrasound report provided separately). Ms. Andrade's questions were answered to her satisfaction. She was advised to contact our office or her OB provider for any additional questions regarding her . RECOMMENDATIONS: Recommend follow up ultrasound with MFM in 12 weeks for growth secondary to above indications. Thank you for allowing us to participate in the care of this patient. Please call with any questions. Cynthia Alvarado DO 10/21/2023 4:04 PM documented in this encounter Miscellaneous Notes * Assessment & Plan Note - Cynthia Alvarado DO - 10/21/2023 4:11 PM EST Associated Problem(s): Hypothyroid in , antepartum TSH Results: Lab Results Component Value Date/Time TSH - [facility] 3.87 10/20/2023 08:55 AM TSH - [facility] 1.29 08/11/2023 12:28 PM TSH - [facility] 1.28 07/09/2023 11:15 AM TSH - [facility] 3.31 09/08/2018 03:23 PM TSH - [facility] 0.78 07/15/2016 11:41 AM Medication adjusted in response to elevated TSH. If this persists on repeat TSH planned in 4 weeks,please refer back for growth sooner. * Assessment & Plan Note - Cynthia Alvarado DO - 10/21/2023 2:34 PM EST Associated Problem(s): conceived through in vitro fertilization We reviewed slightly increased risk for congenital anomalies, particularly cardiac, in IVF pregnancies as well as IUGR. Etiology of these complications is unknown; perhaps related to underlying causeof the infertility vs. embryo cell culture. The risk is higher when ICSI is used. echo may not detect small VSD (<2mm) but is effective in diagnosis of most cyanotic lesions and many other clinically relevant cardiac defects. Today's exam did not suggest any evidence of cardiac abnormality. * Assessment & Plan Note - Cynthia Alvarado DO - 10/21/2023 2:33 PM EST Associated Problem(s): AMA (advanced maternal age) multigravida 35+ Declined NIPT. documented in this encounter Plan of Treatment Upcoming Encounters Date Type Department Care Team (Late st Contact Info) Description 11/17/2023 11:45 AM EST Office Visit Gynecology/Obstetrics [facility] [address] [phone] Ekaterina Bennett PA-C [address] [phone] 01/15/2024 2:30 PM EST Imaging Maternal Medicine Imaging, [facility] [address] [phone] Health Maintenance Due Date Last Done Comments [...] Diagnosis resulting from in vitro fertilization in second trimester- Primary Hypothyroid in , antepartum Thyroid dysfunction, antepartum Multigravida of advanced maternal age in second trimester Encounter for anatomic survey Encounter for screening for congenital cardiac abnormalities in fetus documented in this encounter Care Teams Test Baker Relationship Specialty Start Date End Date Shanice Milian MD [address] [phone] PCP - General Internal Medicine 11/13/22 documented as of this encounter
--- OUTSIDE RECORDS SUMMARY | 2024-03-01 09:38 | External Medical Summary ---
Author Name Unknown Address Unknown Organization K01:[facility] - [address] [place] [address] Laboratory Report Ordering Provider Test Date Status JEAN ELAM 12/15/2023 12:07:50 Final Observation Date Value Abnormality Reference (Units ) Status T4, Free 12/15/2023 12:07:50 1.3 0.9-1.7 (n g/dL) Final Performing Location [facility] - [address] [place] [address]
--- OUTSIDE RECORDS SUMMARY | 2024-03-01 09:38 | External Medical Summary ---
Author Name Unknown Address Unknown Organization K01:LABORATORY [facility] [place] - [address] [place] [address] Laboratory Report Ordering Provider Test Date Status JORGE GRANDE 11/17/2023 12:24:33 Final Observation Date Value Abnormality Reference (Units ) Status TSH 11/17/2023 12:24:33 1.11 0.27-4.20 (uIU/mL) Final Performing Location [facility] - [address] [place] [address]
--- OUTSIDE RECORDS SUMMARY | 2024-03-01 09:38 | External Medical Summary | Summary of Care ---
Author Name Unknown Organization [facility] Address [address] [facility] [address] Phone [phone] Care Team Providers Care Residential Sales Name Role Phone Shanice Milian MD Primary Care Provider Reason for Visit * Reason Comments Return Visit Encounter Details Date Type Department Care Team (Latest Contact Info) Description 11/17/2023 11:45 AM EST Office Visit Gynecology/Obstetric s [facility] [address] [place] [address] Ekaterina Bennett PA-C [address] [place] [address] Multigravida of advanced maternal age in third [...] Sign Reading Time Taken Comments Blood Pressure 108/72 11/17/2023 11:45 AM EST Pulse - - Temperature - - Respiratory Rate - - Oxygen Saturation - - Inhaled Oxygen Concentration - - Weight 65.5 kg (144 lb 6.4 oz) 11/17/2023 11:45 AM EST Height 160 cm (5' 3") 11/17/2023 11:45 AM EST Body Mass Index 25.58 11/17/2023 11:45 AM EST documented in this encounter Progress Notes * Ekaterina Bennett PA-C - 11/17/2023 12:06 PM EST 23w0d Without complaints. Denies bleeding, leaking, contractions. + quickening. Moved her washing machine last night. Had some discomfort after now gone. Reviewed limiting weight with lifting to 40 pounds or less in . [place] Reviewed VTE prevention. OB records given. TSH today. Taking Levothyroxine 25 mcg daily and 50 mcg every other day. Third tri labs with next appt RTC in 4 weeks Ekaterina Bennett PA-C documented in this encounter Nursing Notes * Ifeoma Gonzalez RN - 11/17/2023 11:46 AM EST Patient here for ARGELIA 23w0d No concerns documented in this encounter Plan of Treatment Upcoming Encounters Date Type Department Care Team (Late st Contact Info) Description 11/17/2023 12:40 PM EST [facility] [address] [facility] [place] [phone] Rosina Spivey [address] [place] [place] [address] Hypothyroid in , antepartum 12/15/2023 11:20 AM EST [facility] [address] [facility] [place] [phone] [facility], Lab [address] [place] [address] 12/15/2023 11:45 AM EST Office Visit Gynecology/Obstetric s [facility] [address] [place] [address] Ekaterina Bennett PA-C [address] [place] [phone] 01/15/2024 2:30 PM EST Imaging Maternal Medicine Imaging, [address] [place] [phone] Pending Results Name Type Priority Associated Diagnoses Date /Time TSH WITH FREE T4 IF INDICATED Lab Routine Hypothyroid in , antepartum 11/17/2023 12:24 PM EST Scheduled Orders Name Type Priority Associated Diagnoses Orde r Schedule SYPHILIS ANTIBODY SCREEN WITH REFLEX TO RPR Lab Routine Supervision of high risk in third trimester Expected: 12/18/2023, Expires: 11/17/2024 CBC WITH WBC DIFFERENTIAL AND ANEMIA REFLEX WORKUP Lab Routine Supervision of high risk in third trimester Expected: 12/18/2023, Expires: 11/17/2024 50-G GESTATIONAL GLUCOSE, 1 HOUR Lab Routine Supervision of high risk in third trimester Expected: 12/18/2023, Expires: 11/17/2024 TSH WITH FREE T4 IF INDICATED Lab Routine Hypothyroid in , antepartum Expected: 11/17/2023, Expires: 11/17/2024 Health Maintenance Due Date Last Done Comments [...] antepartum documented in this encounter Care Teams Residential Sales Relationship Specialty Start Date End Date Shanice Milian MD [address] [place] [address] PCP - General Internal Medicine 11/13/22 documented as of this encounter
--- OUTSIDE RECORDS SUMMARY | 2024-03-01 09:39 | External Medical Summary | Summary of Care ---
Author Name Unknown Organization [facility] Address [address] [facility] [place] [address] Phone [phone] Care Team Providers Care Firewall Administrator Name Role Phone Shanice Milian MD Primary Care Provider Reason for Visit * Reason Comments Return Visit Encounter Details Date Type Department Care Team (Late st Contact Info) Description 09/23/2023 11:45 AM EDT Office Visit Gynecology/Obstetri nery [facility] [address] [place] [address] Isabela Ingram CRNP [address] [place] [address] Supervision of high risk in third trimester*; Multigravida of advanced maternal age in third trimester; resulting from in vitro fertilization in third trimester; Leiomyoma of uterus affecting , antepartum; Hypothyroid in , antepartum Allergies No known active allergiesdocumented as of this encounter (statuses as of 09/23/2023) Medications Medication Sig Dispensed Refills Start Date [...] as of this encounter (statuses as of 09/23/2023) Active Problems Problem Noted Date Diagnosed Date [...] as of this encounter (statuses as of 09/23/2023) Resolved Problems Problem Noted Date Diagnosed Date Resolved Date Pap smear for cervical cancer screening 08/28/2022 01/01/2023 HPV (human papilloma virus) infection 08/28/2022 01/07/2023 documented as of this encounter (statuses as of 09/23/2023) Immunizations Name Administration Dates Next Due TDAP [...] the money to buy more. Never true 12/14/19 Within the past 12 months, t he food you bought just didn't last and you didn't have money to get more. Never true 12/14/2022 Estimated Date of Delivery Comme nts Yes [...] Sign Reading Time Taken Comments Blood Pressure 108/68 09/23/2023 11:44 AM EDT Pulse - - Temperature - - Respiratory Rate - - Oxygen Saturation - - Inhaled Oxygen Concentration - - Weight 61.2 kg (135 lb) 09/23/2023 11:44 AM EDT Height - - Body Mass Index 23.35 08/19/2023 11:25 AM EDT documented in this encounter Progress Notes * PONCHO Evans - 09/23/2023 11:55 AM EDT 15w1d No bleeding/cramping. Not feeling baby move yet. Scheduled with [facility] for anatomy scan. Declines genetic screening. Recommend compression socks if traveling. 4 week return. PONCHO Hernández * Kusum Guillermo LPN - 09/23/2023 11:44 AM EDT 15w1d Denies vaginal bleeding/rom Absent movement Bruising underneath toe nail- unsure if injury but walking more often. Declines flu documented in this encounter Plan of Treatment Upcoming Encounters Date Type Department Care Team (Late st Contact Info) Description 10/20/2023 8:45 AM EST Office Visit Gynecology/Obstetrics [facility] [address] [place] [address] Isabela Ingram CRNP [address] [place] [address] 10/21/2023 1:30 PM EST Office Visit Pipelines Superintendent Obstetrics Maternal Medicine, [place] [address] [place], [place] [phone] Cynthia Alvarado, [address] [place], [place] [phone] 10/21/2023 1:30 PM EST Imaging Radiology [facility], [place] [address] [place] [address] Health Maintenance Due Date Last Done Comments Hepatitis B (1 of 3 - 3-dose series) 1981 COVID-19 Vaccine (#1) 1981 HPV/Co-Test 2011 Lipid Panel 07/15/2021 07/15/2016 Influenza Vaccine (FLU shot) (#1) 2023 Mammogram 08/29/2023 08/29/2022, 07/02, 07/19/2021 Depression Screening 11/13/2023 11/13/2022 TSH 08/11/2024 08/11/2023, 08/2023, 05/26/2023, Additional history exists Cervical Cancer [...] Not on filedocumented as of this encounter Procedures Procedure Name Priority Date/Time Associated Diagnosis Comments URINALYSIS, POINT OF CARE (ENTER/EDIT) Routine 09/23/2023 Supervision of high risk in third trimester documented in this encounter Results * URINALYSIS, POINT OF CARE (ENTER/EDIT) (09/23/2023) Color, Urine Yellow Yellow or Light Yellow Clarity, Urine Clear Clear Glucose, Urine Negative Negative mg/dL Bilirubin, Urine Negative Negative Ketone, Urine Negative Negative mg/dL Specific [place], Urine 1.020 1.003 - 1.030 Blood, Urine Trace-intact Negative pH, Urine 7.5 5.0 - 7.5 units Protein, Urine Negative Negative mg/dL Urobilinogen, Urine 0.2 0.2 - 1.0 mg/dL Nitrite, Urine Negative Negative Esterase, Urine Negative Negative Urine 09/23/2023 Isabela ISAAC LAB POINT O F CARE TEST ENTER/EDIT ORDERABLES documented in this encounter Visit Diagnoses Diagnosis Supervision of high risk in third trimester- Primary Unspecified high-risk Multigravida of advanced maternal age in third trimester resulting from in vitro fertilization in third trimester Leiomyoma of uterus affecting , antepartum Hypothyroid in , antepartum Thyroid dysfunction, antepartum documented in this encounter Care Teams Firewall Administrator Relationship Specialty Start Date End Date Shanice Milian MD [address] [facility] [place] [phone] PCP - General Internal Medicine 11/13/22 documented as of this encounter
--- OUTSIDE RECORDS SUMMARY | 2024-03-01 09:39 | External Medical Summary | Summary of Care ---
Author Name Unknown Organization [facility] Address [address] [place] [place] [place] [address] Phone [phone] Care Team Providers Care Biopharmaceutical Rep Name Role Phone Shanice Milian MD Primary Care Provider Reason for Visit * Reason Comments Return Visit Encounter Details Date Type Department Care Team (Late st Contact Info) Description 09/23/2023 11:45 AM EDT Office Visit Gynecology/Obstetri nery [facility] [address] [place] [address] Isabela Ingram CRNP [address] [place] [address] Supervision of high risk in third trimester*; [...] Not feeling baby move yet. Scheduled with [facility] for anatomy scan. Declines genetic screening. [...] Description 10/21/2023 1:30 PM EST Office Visit Mud Jack Nozzle Worker Obstetrics Maternal Medicine, [place] [address] [place] [address] Cynthia Alvarado, [address] [place] [address] 10/21/2023 1:30 PM EST Imaging Radiology [facility], [place] [address] [place], [place] [phone] Scheduled Orders Name Type Priority Associated Diagnoses Orde r Schedule URINALYSIS, POINT OF CARE (ENTER/EDIT) Point of Care Testing Routine Supervision of high risk in third trimester Ordered: 09/23/2023 Health Maintenance Due Date Last Done Comments [...] antepartum documented in this encounter Care Teams Biopharmaceutical Rep Relationship Specialty Start Date End Date Shanice Milian MD [address] [place] [address] PCP - General Internal Medicine 11/13/22 documented as of this encounter
--- OUTSIDE RECORDS SUMMARY | 2024-03-01 09:39 | External Medical Summary | Summary of Care ---
Author Name Unknown Organization [facility] Address [address] [place] [facility] [place] [address] Phone [phone] Care Team Providers Care Hand Developer Name Role Phone Shanice Milian MD Primary Care Provider Reason for Visit * Reason Comments Return Visit Encounter Details Date Type Department Care Team (Late st Contact Info) Description 09/23/2023 11:45 AM EDT Office Visit Gynecology/Obstetri nery [facility] [address] [place] [address] Isabela Ingram CRNP [address] [facility] [place] [address] Supervision of high risk in third trimester*; [...] Not feeling baby move yet. Scheduled with [facility] for anatomy scan. Declines genetic screening. [...] 10/20/2023 8:45 AM EST Office Visit Gynecology/Obstetrics [facility] [address] [place] [address] Isabela Ingram CRNP [address] [place] [address] 10/21/2023 1:30 PM EST Office Visit Scientologist Obstetrics Maternal Medicine, [place] [address] [place], [place] [phone] Cynthia Alvarado, [address] [place], [place] [phone] 10/21/2023 1:30 PM EST Imaging Radiology [facility], [place] [address] [place] [address] Health Maintenance Due Date Last [...] Negative Ketone, Urine Negative Negative mg/dL Specific [place], Urine 1.020 1.003 - 1.030 Blood, Urine [...] antepartum documented in this encounter Care Teams Hand Developer Relationship Specialty Start Date End Date Shanice Milian MD [address] [facility] [place] [address] PCP - General Internal Medicine 11/13/22 documented as of this encounter
--- OUTSIDE RECORDS SUMMARY | 2024-03-01 09:39 | External Medical Summary | Summary of Care ---
Author Name Unknown Organization [facility] Address [address] [place] [address] Phone [phone] Care Team Providers Care Retail Key Holder Name Role Phone Shanice Milian MD Primary Care Provider Reason for Visit * Reason Comments Ultrasound Encounter Details Date Type Department Care Team Description 09/02/2023 Office Visit [facility] Obstetrics Maternal Medicine, [facility] [address] [place] [address] Cynthia Alvarado, [address] [place] [address] resulting from in vitro fertilization in first trimester*; Multigravida of advanced maternal age in first trimester; Encounter for screening for chromosomal anomalies; Hypothyroid in , antepartum; Leiomyoma of uterus affecting , antepartum Allergies No known active allergiesdocumented as of this encounter (statuses as of 09/03/2023) Medications Medication Sig Dispensed Refills Start Date [...] as of this encounter (statuses as of 09/03/2023) Active Problems Problem Noted Date Hypothyroid in , antepartum 12/2022 Overview: Patient states that she was diagnosed [...] 07/15/2016 11:41 AM 7 weeks gestation of AMA (advanced maternal age) multigravida 35+ 07/28/2023 Overview: Age 43 at delivery FOB age [...] 19-20 weeks gestation. conceived through in vitro matias tilization 07/28/2023 Overview: Embryo transfer 06/25/2023 Patient's egg [...] delivery at 39 weeks. , supervision, high-risk 2022 Leiomyoma of uterus affecting , antepartum 07/28/2023 Overview: Uterine fibroid noted on dating [...] 38w6d gestation. HPV (human papilloma virus) infection Overview: neg colposcopy 2022 - repeat pap 2023 Acute right-sided low back pain with rig ht-sided sciatica 03/13/2022 Menstrual migraine without status migrai nosus, not intractable 09/08/2018 Estimated Date of Delivery Comme nts Yes 03/15/2024 Based on Ultraso und documented as of this encounter (statuses as of 09/03/2023) Resolved Problems Problem Noted Date Resolved Date Pap smear for cervical cancer screening 08/28/20 22 01/01/2023 HPV (human papilloma virus) infection 08/28/2022 01/07/2023 documented as of this encounter (statuses as of 09/03/2023) Immunizations Name Administration Dates Next Due TDAP (age 10 and older)(Boostrix) 07/12/2016 documented as of this encounter Social History Tobacco Use Types Packs/Day Years Used Date Smoking Tobacco: Never Smokeless Tobacco: Never Alcohol Use Standard Drinks/Week Comments No 0 (1 standard drink = 0.6 oz pur e alcohol) Food Insecurity Answer Date Recorded Within the past 12 months, y ou worried that your food would run out before you got money to buy more. Never true 12/15/2022 Within the past 12 months, t he food you bought just didn't last and you didn't have money to get more. Never true 12/15/2022 Estimated Date of Delivery Comme nts Yes 03/15/2024 Based on Ultraso und Sex Assigned at Date Recorded Female 07/23/2021 9:48 PM E DT Job Start Date Occupation Industry Not on file Not on file Not on file documented as of this encounter Progress Notes * Cynthia Farias DO - 09/03/2023 12:49 PM EDT Ceci presented today at 12w2d for an ultrasound for the following indications: resulting from in vitro fertilization in first trimester Multigravida of advanced maternal age in first trimester Encounter for screening for chromosomal anomalies Hypothyroid in , antepartum Assessment & Plan: TSH Results: Lab Results Component Value Date/Time TSH - [facility] 1.29 08/11/2023 12:28 PM TSH - [facility] 1.28 07/09/2023 11:15 AM TSH - [facility] 0.18 (L) 05/26/2023 12:56 PM TSH - [facility] 3.31 09/08/2018 03:23 PM TSH - [facility] 0.78 07/15/2016 11:41 AM Leiomyoma of uterus affecting , antepartum Ultrasound summary: Single live IUP at 12w 4d consistent with dates. NT measurement normal at 1.3 mm. Very early limited anatomy appears normal. I reviewed the ultrasound images. Ceci was given the opportunity to meet with me if she had any questions. Please refer to the ultrasound report for additional details about today's ultrasound examination. RECOMMENDATIONS: Recommend follow up ultrasound with MFM in 8 weeks for anatomy survey secondary to above indications. See prior formal MFM consultation note. Thank you for allowing us to participate in the care of this patient. Please call with any questions. Cynthia Alvarado DO 09/03/2023 12:50 PM documented in this encounter Miscellaneous Notes * Assessment & Plan Note - Cynthia Farias DO - 09/02/2023 4:05 PM EDT Associated Problem(s): Hypothyroid in , antepartum TSH Results: Lab Results Component Value Date/Time TSH - [facility] 1.29 08/11/2023 12:28 PM TSH - [facility] 1.28 07/09/2023 11:15 AM TSH - [facility] 0.18 (L) 05/26/2023 12:56 PM TSH - [facility] 3.31 09/08/2018 03:23 PM TSH - [facility] 0.78 07/15/2016 11:41 AM documented in this encounter Plan of Treatment Upcoming Encounters Date Type Specialty Care Team Description 09/23/2023 Office Visit Gynecology Obstetrics [facility], [facility] [address] [place] [address] 10/21/2023 Office Visit Maternal Medicine Cynthia Alvarado DO [address] [place] [address] 10/21/2023 Imaging Radiology Scheduled Orders Name Type Priority Associated Diagnoses Orde r Schedule [facility] US MATERNAL 1ST FETUS Medical Imaging Routine resulting from in vitro fertilization in first trimester Multigravida of advanced maternal age in first trimester Encounter for screening for chromosomal anomalies Hypothyroid in , antepartum Leiomyoma of uterus affecting , antepartum 1 Occurrences starting 09/03/2023 until 12/03/2023 [facility] US PREG FOLLOW UP EACH FETUS Medical Imaging Routine resulting from in vitro fertilization in first trimester Multigravida of advanced maternal age in first trimester Encounter for screening for chromosomal anomalies Hypothyroid in , antepartum Leiomyoma of uterus affecting , antepartum 9 Occurrences starting 09/03/2023 until 03/03/2024 Health Maintenance Due Date Last Done Comments [...] Diagnosis resulting from in vitro fertilization in first trimester- Primary Multigravida of advanced maternal age in first trimester Encounter for screening for chromosomal anomalies Hypothyroid in , antepartum Thyroid dysfunction, antepartum Leiomyoma of uterus affecting , antepartum documented in this encounter Care Teams Retail Key Holder Relationship Specialty Start Date End Date Shanice Milian MD [address] [id number] PCP - General Internal Medicine 11/13/22 documented as of this encounter
[2024-03-01 09:50] LABS: Hematocrit (blood only) 37.4 % (37.0-47.0); Hemoglobin 13.4 g/dl (12.0-16.0); Mean Corpuscular Hemoglobin 31.5 pg (25.0-34.0); Mean Corpuscular Hgb Conc 35.8 g/dL (32.0-36.0); Mean Platelet Volume 9.8 fL (9.4-12.4); Platelet Count 169 K/uL (130-400); RDW Coefficient of Variation 12.4 % (11.5-14.5); RDW Standard Deviation 39.6 fL (36.4-46.3); Red Blood Count 4.25 M/uL (4.20-5.40); White Blood Count 10.14 K/ul (4.8-10.8)
[2024-03-01 10:08] LABS: Albumin Globulin Ratio 1.1 (0.9-2); Albumin Level 3.5 gm/dl (3.4-5.0); BUN Creatinine Ratio 13.8 (10-20); Bilirubin,Total 0.4 mg/dl (0.2-1.0); Calcium 8.5 mg/dl (8.6-10.3); Creatinine Clr Calc Pharmacy 111.7 ml/min; Est GFR (African American) 126.9 ml/min; Est GFR (Non-African American) 109.5 ml/min; Globulin 3.1 gm/dl (2.5-4.0); Potassium 3.6 mmol/L (3.5-5.1); Total Protein 6.6 gm/dl (6.0-8.3)
[2024-03-01] MEDS: LACTATED RINGER'S 1,000 ML IV PRN (11:04)
[2024-03-01] MEDS: OXYTOCIN 30 UNITS/NSS 30 UNITS/500 ML BAG IV PRN (11:09)
[2024-03-01] MEDS: PENICILLIN GK 6 MU in DEXTROSE 5% 250 ML IV STA (11:09)
[2024-03-01 12:32] LABS: Creatinine Urine Random 131.7 mg/dl; Protein Creatinine Ratio Urine 0.1 (0-0.2); Total Protein Urine Random 17.4 mg/dl (0-11.9)
[2024-03-01] MEDS ORDERED: SODIUM CHLORIDE 0.9% PF INJ 10 ML VIAL EPI PRN (13:56)
[2024-03-01] MEDS ORDERED: LIDOCAINE 2% MPF LOCAL 5 ML VIAL EPI PRN (13:56)
[2024-03-01] MEDS ORDERED: ePHEDrine sulfate 50 MG/ML AMP IV PRN (13:56)
[2024-03-01] MEDS ORDERED: diphenhydrAMINE 50 MG/ML VIAL IV PRN (13:56)
[2024-03-01] MEDS ORDERED: NALOXONE HCL 1 MG in SODIUM CHLORIDE 0.9% 1,000 ML IV PRN (13:56)
[2024-03-01] MEDS ORDERED: ROPIVACAINE 0.5% PF 5 MG/ML 20 ML VIAL EPI PRN (13:56)
[2024-03-01] MEDS ORDERED: NALOXONE HCL 0.4 MG/1 ML VIAL/CARP IV PRN (13:56)
[2024-03-01] MEDS ORDERED: BUPIVACAINE 0.25% PF 30 ML VIAL EPI PRN (13:56)
[2024-03-01] MEDS ORDERED: NALBUPHINE HCL 5 MG in SYRINGE 0 ML IV PRN (13:56)
[2024-03-01] MEDS ORDERED: fentaNYL citrate PF 100 MCG/2 ML VIAL EPI PRN (13:56)
--- NOTE | 2024-03-01 13:56 | Anesthesiology Consultation ---
Date of Service March 01, 2024 Assessment & Plan (1) Encounter for pre-operative examination: Chart Review Chart Review: Patient NOT seen in Pre Admission Testing and Acceptable Risk for Labor Epidural Consults Requested none History Height/Weight Height: 5 ft 4 in Weight: 74.843 kg Allergies Allergy/AdvReac Type Severity Reaction Status Date / Time No Known Allergies Allergy Unverified 05/08/23 10:07 Medications Home Medications Medication Instructions Recorded Confirmed Last Taken levothyroxine 50 mcg tablet 50 mcg PO Q OTHER DAY 05/08/23 03/01/24 03/01/24 prenat.vits,george,[id number] 1 tab PO DAILY 05/08/23 03/01/24 02/29/24 aspirin 81 mg tablet 81 mg PO DAILY 03/01/24 03/01/24 02/29/24 levothyroxine 25 mcg tablet 25 mcg PO Q OTHER DAY 03/01/24 03/01/24 02/29/24 Active Medications Generic Name Dose Route Start Last Admin Trade Name Freq PRN Reason Stop Dose Admin Lactated Ringer's 1,000 mls @ 150 mls/hr 03/01/24 09:10 03/01/24 13:30 Lr IV 03/03/24 09:09 999 mls/hr .[id number] PRN Infusion L&D Protocol Protocol Oxytocin 30 units in 500 mls @ 10 mls/hr 03/01/24 09:12 03/01/24 13:30 Pitocin 30 Units/Nss IV 03/03/24 09:11 0.6 units/hr .Q24H PRN 10 mls/hr Labor Induction/Augmentation Titration Protocol 0.6 UNITS/HR Past Medical History Medical History Hypothyroidism Migraine HPV (human papilloma virus) infection Uterine fibroid Advanced maternal age, 1st Asthma Past Surgical History Surgical History History of root canal procedure Social History Smoking Status: Never smoker Hx Alcohol Use: No Hx Substance Use: No Physical Exam Vital Signs Last Vital Signs Temp 98.4 F 03/01/24 12:00 Pulse 87 03/01/24 13:50 Resp 20 03/01/24 13:30 BP 114/64 03/01/24 13:11 Pulse Ox 99 04/01/24 13:50 Testing Laboratory Results 03/01/24 09:26 03/01/24 09:26 Blood Type A Positive 03/01/24 09:26 Antibody Screen NEGATIVE 03/01/24 09:26
[2024-03-01] MEDS: fentANYL 2 MCG/ML BUPIVacaine 0.125%-NSS 100ML BAG EPI PRN (14:14)
[2024-03-01] MEDS: BUPIVACAINE 0.25% PF 30 ML VIAL EPI STA (14:20)
[2024-03-01] MEDS: LIDOCAINE 2%/EPINEPHRINE 1:200,000 20 ML PF EPI STA (14:20)
--- NOTE | 2024-03-01 14:58 | Obstetrical Progress Note ---
Date of Service March 01, 2024 Subjective Patient is reevaluated. She is comfortable now, received epidural for pain Due for 2nd dose of PCN VSS Afebrile Labs WNL VE; unchanged, 1 / thick/ -3, clear fluid + FHR categ I [place] ctxs q 4-5 min Continue to monitor closely, increase Oxytocin per protocol Results & Data Vital Signs (Past 12 Hours) Vital Signs Temp Pulse Resp BP Pulse Ox 03/01/24 14:55 99 03/01/24 14:55 103 H 03/01/24 14:55 123/74 03/01/24 14:50 98 03/01/24 14:50 98 H 03/01/24 14:45 99 03/01/24 14:45 92 H 03/01/24 14:45 133/76 03/01/24 14:40 97 03/01/24 14:40 85 03/01/24 14:39 88 03/01/24 14:39 126/74 03/01/24 14:35 20 03/01/24 14:35 20 03/01/24 14:35 98 03/01/24 14:35 111 H 03/01/24 14:34 109 H 03/01/24 14:34 134/75 03/01/24 14:30 20 03/01/24 14:30 20 03/01/24 14:30 99 03/01/24 14:30 99 H 03/01/24 14:28 90 03/01/24 14:28 121/69 03/01/24 14:27 107 H 03/01/24 14:27 120/76 03/01/24 14:25 98 03/01/24 14:25 97 H 03/01/24 14:24 93 H 03/01/24 14:24 128/85 03/01/24 14:22 90 03/01/24 14:22 127/80 03/01/24 14:20 97 03/01/24 14:20 87 03/01/24 14:20 85 03/01/24 14:20 133/82 03/01/24 14:18 90 03/01/24 14:18 134/89 03/01/24 14:15 98 03/01/24 14:15 87 03/01/24 14:15 86 03/01/24 14:15 136/92 03/01/24 14:10 98 03/01/24 14:10 90 03/01/24 14:05 98 03/01/24 14:05 88 03/01/24 14:00 36.9 C 03/01/24 14:00 98 03/01/24 14:00 89 03/01/24 13:55 98 03/01/24 13:55 84 03/01/24 13:50 99 03/01/24 13:50 87 03/01/24 13:45 98 03/01/24 13:45 81 03/01/24 13:40 98 03/01/24 13:40 87 03/01/24 13:35 98 03/01/24 13:35 84 03/01/24 13:30 20 03/01/24 13:30 20 03/01/24 13:30 99 03/01/24 13:30 86 03/01/24 13:11 88 03/01/24 13:11 114/64 03/01/24 13:00 20 03/01/24 13:00 20 03/01/24 12:18 81 03/01/24 12:18 143/74 H 03/01/24 12:00 20 03/01/24 12:00 36.9 C 20 03/01/24 11:15 20 03/01/24 11:15 20 03/01/24 11:11 82 03/01/24 11:11 123/73 03/01/24 09:58 79 03/01/24 09:58 142/82 H 03/01/24 09:37 36.9 C 20 03/01/24 09:13 85 131/95 03/01/24 09:12 83 130/100
[2024-03-01] MEDS: PENICILLIN GK 3 MU in DEXTROSE 5% 100 ML IV PRN (15:09)
[2024-03-01] MEDS: LIDOCAINE 2%/EPINEPHRINE 1:200,000 20 ML PF ONE (16:35)
[2024-03-01] MEDS: ePHEDrine sulfate 50 MG/ML AMP ONE (16:35)
[2024-03-01] MEDS: SODIUM CHLORIDE 0.9% PF INJ 10 ML VIAL ONE (16:35)
[2024-03-01] MEDS: fentaNYL citrate PF 100 MCG/2 ML VIAL ONE (16:35)
[2024-03-01] MEDS: fentANYL 2 MCG/ML BUPIVacaine 0.125%-NSS 100ML BAG ONE (16:35)
[2024-03-01] MEDS: BUPIVACAINE 0.25% PF 30 ML VIAL ONE (16:35)
[2024-03-01] MEDS: fentaNYL citrate PF 100 MCG/2 ML VIAL EPI STA (16:36)
[2024-03-01] MEDS: SODIUM CHLORIDE 0.9% PF INJ 10 ML VIAL EPI STA (16:37)
--- NOTE | 2024-03-01 18:35 | Obstetrical Progress Note ---
Date of Service March 01, 2024 Subjective Patient is reevaluated. Oxytocin has reached to 20 miu/min FHR had been categ I [place]: ctxs q 2-4 min VE: 1-2 cm/ 50%/ -2, minimal change IUPC is placed to adjust the dose of Oxytocin Continue to monitor closely. Results & Data Vital Signs (Past 12 Hours) Vital Signs Temp Pulse Resp BP Pulse Ox 03/01/24 18:30 99 03/01/24 18:30 85 03/01/24 18:27 86 03/01/24 18:27 109/66 03/01/24 18:25 99 03/01/24 18:25 89 03/01/24 18:20 99 03/01/24 18:20 90 03/01/24 18:15 99 03/01/24 18:15 88 03/01/24 18:12 82 03/01/24 18:12 112/68 03/01/24 18:10 98 03/01/24 18:10 84 03/01/24 18:05 98 03/01/24 18:05 80 03/01/24 18:00 18 03/01/24 18:00 18 03/01/24 18:00 98 03/01/24 18:00 78 03/01/24 17:57 78 03/01/24 17:57 103/62 03/01/24 17:55 98 03/01/24 17:55 84 03/01/24 17:50 98 03/01/24 17:50 82 03/01/24 17:45 98 03/01/24 17:45 83 03/01/24 17:42 80 03/01/24 17:42 107/64 03/01/24 17:40 98 03/01/24 17:40 82 03/01/24 17:35 98 03/01/24 17:35 83 03/01/24 17:30 20 03/01/24 17:30 20 03/01/24 17:30 99 03/01/24 17:30 81 03/01/24 17:28 81 03/01/24 17:28 106/64 03/01/24 17:25 98 03/01/24 17:25 79 03/01/24 17:20 99 03/01/24 17:20 81 03/01/24 17:15 99 03/01/24 17:15 84 03/01/24 17:12 84 03/01/24 17:12 110/62 03/01/24 17:10 98 03/01/24 17:10 82 03/01/24 17:05 99 03/01/24 17:05 86 03/01/24 17:00 99 03/01/24 17:00 82 03/01/24 16:57 85 03/01/24 16:57 106/62 03/01/24 16:55 98 03/01/24 16:55 79 03/01/24 16:50 98 03/01/24 16:50 81 03/01/24 16:45 98 03/01/24 16:45 81 03/01/24 16:42 81 03/01/24 16:42 96/59 L 03/01/24 16:40 98 03/01/24 16:40 79 03/01/24 16:35 98 03/01/24 16:35 88 03/01/24 16:30 18 03/01/24 16:30 18 03/01/24 16:30 97 03/01/24 16:30 85 03/01/24 16:28 81 03/01/24 16:28 108/68 03/01/24 16:25 98 03/01/24 16:25 90 03/01/24 16:20 98 03/01/24 16:20 86 03/01/24 16:15 99 03/01/24 16:15 86 03/01/24 16:12 86 03/01/24 16:12 106/74 03/01/24 16:10 97 03/01/24 16:10 77 03/01/24 16:05 97 03/01/24 16:05 78 03/01/24 16:00 20 03/01/24 16:00 20 03/01/24 16:00 98 03/01/24 16:00 85 03/01/24 15:57 75 03/01/24 15:57 113/74 03/01/24 15:55 97 03/01/24 15:55 96 H 03/01/24 15:50 97 03/01/24 15:50 75 03/01/24 15:45 98 03/01/24 15:45 84 03/01/24 15:43 78 03/01/24 15:43 117/76 03/01/24 15:40 98 03/01/24 15:40 102 H 03/01/24 15:35 98 03/01/24 15:35 85 03/01/24 15:30 20 03/01/24 15:30 20 03/01/24 15:30 97 03/01/24 15:30 83 03/01/24 15:27 88 03/01/24 15:27 122/77 03/01/24 15:25 97 03/01/24 15:25 79 03/01/24 15:20 98 03/01/24 15:20 91 H 03/01/24 15:15 99 03/01/24 15:15 88 03/01/24 15:12 96 H 03/01/24 15:12 127/79 03/01/24 15:10 98 03/01/24 15:10 90 03/01/24 15:05 98 03/01/24 15:05 86 03/01/24 15:00 18 03/01/24 15:00 18 03/01/24 15:00 98 03/01/24 15:00 100 H 03/01/24 14:55 99 03/01/24 14:55 103 H 03/01/24 14:55 123/74 03/01/24 14:50 98 03/01/24 14:50 98 H 03/01/24 14:45 99 03/01/24 14:45 92 H 03/01/24 14:45 133/76 03/01/24 14:40 97 03/01/24 14:40 85 03/01/24 14:39 88 03/01/24 14:39 126/74 03/01/24 14:35 20 03/01/24 14:35 20 03/01/24 14:35 98 03/01/24 14:35 111 H 03/01/24 14:34 109 H 03/01/24 14:34 134/75 03/01/24 14:30 20 03/01/24 14:30 20 03/01/24 14:30 99 03/01/24 14:30 99 H 03/01/24 14:28 90 03/01/24 14:28 121/69 03/01/24 14:27 107 H 03/01/24 14:27 120/76 03/01/24 14:25 98 03/01/24 14:25 97 H 03/01/24 14:24 93 H 03/01/24 14:24 128/85 03/01/24 14:22 90 03/01/24 14:22 127/80 03/01/24 14:20 97 03/01/24 14:20 87 03/01/24 14:20 85 03/01/24 14:20 133/82 03/01/24 14:18 90 03/01/24 14:18 134/89 03/01/24 14:15 98 03/01/24 14:15 87 03/01/24 14:15 86 03/01/24 14:15 136/92 03/01/24 14:10 98 03/01/24 14:10 90 03/01/24 14:05 98 03/01/24 14:05 88 03/01/24 14:00 36.9 C 03/01/24 14:00 98 03/01/24 14:00 89 03/01/24 13:55 98 03/01/24 13:55 84 03/01/24 13:50 99 03/01/24 13:50 87 03/01/24 13:45 98 03/01/24 13:45 81 03/01/24 13:40 98 03/01/24 13:40 87 03/01/24 13:35 98 03/01/24 13:35 84 03/01/24 13:30 20 03/01/24 13:30 20 03/01/24 13:30 99 03/01/24 13:30 86 03/01/24 13:11 88 03/01/24 13:11 114/64 03/01/24 13:00 20 03/01/24 13:00 20 03/01/24 12:18 81 03/01/24 12:18 143/74 H 03/01/24 12:00 20 03/01/24 12:00 36.9 C 20 03/01/24 11:15 20 03/01/24 11:15 20 03/01/24 11:11 82 03/01/24 11:11 123/73 03/01/24 09:58 79 03/01/24 09:58 142/82 H 03/01/24 09:37 36.9 C 20 03/01/24 09:13 85 131/95 03/01/24 09:12 83 130/100
--- NOTE | 2024-03-01 23:54 | Obstetrical Progress Note ---
Date of Service March 01, 2024 Subjective Patient has been resting, comfortable Oxytocin has been increased to 28 miu/min per MVU calculations VE; 5/ 70%/ -1, ant fontanelle at 11 o'clock, OP Clear fluids Afebrile FHR categ I No s/s of intraamniotic infection Received 4 doses of IV PCN Discussed the findings Patient voiced that she does not want Csection Continue to monitor closely Change positions to help to rotate head Results & Data Vital Signs (Past 12 Hours) Vital Signs Temp Pulse Resp BP Pulse Ox 03/01/24 23:45 99 03/01/24 23:45 93 H 03/01/24 23:42 81 03/01/24 23:42 130/87 03/01/24 23:40 99 03/01/24 23:40 85 03/01/24 23:35 100 03/01/24 23:35 92 H 03/01/24 23:30 18 03/01/24 23:30 18 03/01/24 23:30 99 03/01/24 23:30 96 H 03/01/24 23:27 85 03/01/24 23:27 130/89 03/01/24 23:25 98 03/01/24 23:25 89 03/01/24 23:20 98 03/01/24 23:20 86 03/01/24 23:15 99 03/01/24 23:15 98 H 03/01/24 23:12 126 H 03/01/24 23:12 126/87 03/01/24 23:10 99 03/01/24 23:10 133 H 03/01/24 23:05 98 03/01/24 23:05 88 03/01/24 23:00 36.9 C 03/01/24 23:00 98 03/01/24 23:00 85 03/01/24 22:57 89 03/01/24 22:57 123/77 03/01/24 22:55 97 03/01/24 22:55 92 H 03/01/24 22:50 98 03/01/24 22:50 85 03/01/24 22:45 98 03/01/24 22:45 84 03/01/24 22:42 83 03/01/24 22:42 114/68 03/01/24 22:40 97 03/01/24 22:40 83 04/01/24 22:35 95 03/01/24 22:35 92 H 03/01/24 22:30 16 03/01/24 22:30 16 03/01/24 22:30 98 03/01/24 22:30 83 03/01/24 22:27 93 H 03/01/24 22:27 116/70 03/01/24 22:25 98 03/01/24 22:25 85 03/01/24 22:20 98 03/01/24 22:20 84 03/01/24 22:15 98 03/01/24 22:15 84 03/01/24 22:12 84 03/01/24 22:12 118/71 03/01/24 22:10 99 03/01/24 22:10 90 03/01/24 22:05 98 03/01/24 22:05 92 H 03/01/24 22:00 18 03/01/24 22:00 18 03/01/24 22:00 98 03/01/24 22:00 92 H 03/01/24 21:57 86 03/01/24 21:57 118/75 03/01/24 21:55 97 03/01/24 21:55 78 03/01/24 21:50 97 03/01/24 21:50 80 03/01/24 21:45 98 03/01/24 21:45 78 03/01/24 21:43 76 03/01/24 21:43 119/71 03/01/24 21:40 98 03/01/24 21:40 81 03/01/24 21:35 98 03/01/24 21:35 79 03/01/24 21:30 18 03/01/24 21:30 18 03/01/24 21:30 98 03/01/24 21:30 87 03/01/24 21:28 93 H 03/01/24 21:28 122/67 03/01/24 21:25 98 03/01/24 21:25 80 03/01/24 21:20 97 03/01/24 21:20 79 03/01/24 21:15 98 03/01/24 21:15 83 03/01/24 21:12 77 03/01/24 21:12 118/73 03/01/24 21:10 99 03/01/24 21:10 86 03/01/24 21:05 98 03/01/24 21:05 80 03/01/24 21:00 36.9 C 18 03/01/24 21:00 18 03/01/24 21:00 18 03/01/24 21:00 99 03/01/24 21:00 80 03/01/24 20:57 76 03/01/24 20:57 118/77 03/01/24 20:55 99 03/01/24 20:55 82 03/01/24 20:50 98 03/01/24 20:50 80 03/01/24 20:45 98 03/01/24 20:45 79 03/01/24 20:43 76 03/01/24 20:43 118/76 03/01/24 20:40 99 03/01/24 20:40 78 03/01/24 20:35 99 03/01/24 20:35 85 03/01/24 20:30 18 03/01/24 20:30 18 03/01/24 20:30 99 03/01/24 20:30 87 03/01/24 20:27 85 03/01/24 20:27 107/65 03/01/24 20:25 98 03/01/24 20:25 81 03/01/24 20:20 98 03/01/24 20:20 85 03/01/24 20:15 16 03/01/24 20:15 16 03/01/24 20:15 99 03/01/24 20:15 85 03/01/24 20:12 93 H 03/01/24 20:12 109/64 03/01/24 20:10 99 03/01/24 20:10 84 03/01/24 20:05 99 03/01/24 20:05 92 H 03/01/24 20:00 18 03/01/24 20:00 18 03/01/24 20:00 100 03/01/24 20:00 94 H 03/01/24 19:57 83 03/01/24 19:57 103/59 L 03/01/24 19:55 99 03/01/24 19:55 85 03/01/24 19:50 99 03/01/24 19:50 87 03/01/24 19:45 100 03/01/24 19:45 85 03/01/24 19:42 82 03/01/24 19:42 111/64 03/01/24 19:40 100 03/01/24 19:40 82 03/01/24 19:35 99 03/01/24 19:35 82 03/01/24 19:30 18 03/01/24 19:30 18 03/01/24 19:30 99 03/01/24 19:30 88 03/01/24 19:27 76 03/01/24 19:27 118/71 03/01/24 19:25 99 03/01/24 19:25 78 03/01/24 19:20 99 03/01/24 19:20 87 03/01/24 19:15 99 03/01/24 19:15 86 03/01/24 19:12 79 03/01/24 19:12 124/79 03/01/24 19:10 99 03/01/24 19:10 84 03/01/24 19:05 99 03/01/24 19:05 90 18 03/01/24 19:00 18 03/01/24 19:00 18 03/01/24 19:00 99 03/01/24 19:00 85 03/01/24 18:57 86 03/01/24 18:57 135/86 03/01/24 18:55 99 03/01/24 18:55 90 03/01/24 18:50 99 03/01/24 18:50 89 03/01/24 18:45 99 03/01/24 18:45 96 H 03/01/24 18:43 79 03/01/24 18:43 117/76 03/01/24 18:40 98 03/01/24 18:40 87 03/01/24 18:35 98 03/01/24 18:35 82 03/01/24 18:30 99 03/01/24 18:30 85 03/01/24 18:27 86 03/01/24 18:27 109/66 03/01/24 18:25 99 03/01/24 18:25 89 03/01/24 18:20 99 03/01/24 18:20 90 03/01/24 18:15 99 03/01/24 18:15 88 03/01/24 18:12 82 03/01/24 18:12 112/68 04/01/24 18:10 98 03/01/24 18:10 84 03/01/24 18:05 98 03/01/24 18:05 80 03/01/24 18:00 18 03/01/24 18:00 18 03/01/24 18:00 98 03/01/24 18:00 78 03/01/24 17:57 78 03/01/24 17:57 103/62 03/01/24 17:55 98 03/01/24 17:55 84 03/01/24 17:50 98 03/01/24 17:50 82 03/01/24 17:45 98 03/01/24 17:45 83 03/01/24 17:42 80 03/01/24 17:42 107/64 03/01/24 17:40 98 03/01/24 17:40 82 03/01/24 17:35 98 03/01/24 17:35 83 03/01/24 17:30 20 03/01/24 17:30 20 03/01/24 17:30 99 03/01/24 17:30 81 03/01/24 17:28 81 03/01/24 17:28 106/64 03/01/24 17:25 98 03/01/24 17:25 79 03/01/24 17:20 99 03/01/24 17:20 81 03/01/24 17:15 99 03/01/24 17:15 84 03/01/24 17:12 84 03/01/24 17:12 110/62 03/01/24 17:10 98 03/01/24 17:10 82 03/01/24 17:05 36.7 C 03/01/24 17:05 99 03/01/24 17:05 86 03/01/24 17:00 99 03/01/24 17:00 82 03/01/24 16:57 85 03/01/24 16:57 106/62 03/01/24 16:55 98 03/01/24 16:55 79 03/01/24 16:50 98 03/01/24 16:50 81 03/01/24 16:45 98 03/01/24 16:45 81 03/01/24 16:42 81 03/01/24 16:42 96/59 L 03/01/24 16:40 98 03/01/24 16:40 79 03/01/24 16:35 98 03/01/24 16:35 88 03/01/24 16:30 18 03/01/24 16:30 18 03/01/24 16:30 97 03/01/24 16:30 85 03/01/24 16:28 81 03/01/24 16:28 108/68 03/01/24 16:25 98 03/01/24 16:25 90 03/01/24 16:20 98 03/01/24 16:20 86 03/01/24 16:15 99 03/01/24 16:15 86 03/01/24 16:12 86 03/01/24 16:12 106/74 03/01/24 16:10 97 03/01/24 16:10 77 03/01/24 16:05 97 03/01/24 16:05 78 03/01/24 16:00 20 03/01/24 16:00 20 03/01/24 16:00 98 03/01/24 16:00 85 03/01/24 15:57 75 03/01/24 15:57 113/74 03/01/24 15:55 97 03/01/24 15:55 96 H 03/01/24 15:50 97 03/01/24 15:50 75 03/01/24 15:45 98 03/01/24 15:45 84 03/01/24 15:43 78 03/01/24 15:43 117/76 03/01/24 15:40 98 03/01/24 15:40 102 H 03/01/24 15:35 98 03/01/24 15:35 85 03/01/24 15:30 20 03/01/24 15:30 20 03/01/24 15:30 97 03/01/24 15:30 83 03/01/24 15:27 88 03/01/24 15:27 122/77 03/01/24 15:25 97 03/01/24 15:25 79 03/01/24 15:20 98 03/01/24 15:20 91 H 03/01/24 15:15 99 03/01/24 15:15 88 03/01/24 15:12 96 H 03/01/24 15:12 127/79 03/01/24 15:10 98 03/01/24 15:10 90 03/01/24 15:05 98 03/01/24 15:05 86 03/01/24 15:00 18 03/01/24 15:00 18 03/01/24 15:00 98 03/01/24 15:00 100 H 03/01/24 14:55 99 03/01/24 14:55 103 H 03/01/24 14:55 123/74 03/01/24 14:50 98 03/01/24 14:50 98 H 03/01/24 14:45 99 03/01/24 14:45 92 H 03/01/24 14:45 133/76 03/01/24 14:40 97 03/01/24 14:40 85 03/01/24 14:39 88 03/01/24 14:39 126/74 03/01/24 14:35 20 03/01/24 14:35 20 03/01/24 14:35 98 03/01/24 14:35 111 H 03/01/24 14:34 109 H 03/01/24 14:34 134/75 03/01/24 14:30 20 03/01/24 14:30 20 03/01/24 14:30 99 03/01/24 14:30 99 H 03/01/24 14:28 90 03/01/24 14:28 121/69 03/01/24 14:27 107 H 03/01/24 14:27 120/76 03/01/24 14:25 98 03/01/24 14:25 97 H 03/01/24 14:24 93 H 03/01/24 14:24 128/85 03/01/24 14:22 90 03/01/24 14:22 127/80 03/01/24 14:20 97 03/01/24 14:20 87 03/01/24 14:20 85 03/01/24 14:20 133/82 03/01/24 14:18 90 03/01/24 14:18 134/89 03/01/24 14:15 98 03/01/24 14:15 87 03/01/24 14:15 86 03/01/24 14:15 136/92 03/01/24 14:10 98 03/01/24 14:10 90 03/01/24 14:05 98 03/01/24 14:05 88 03/01/24 14:00 36.9 C 03/01/24 14:00 98 03/01/24 14:00 89 03/01/24 13:55 98 03/01/24 13:55 84 03/01/24 13:50 99 03/01/24 13:50 87 03/01/24 13:45 98 03/01/24 13:45 81 03/01/24 13:40 98 03/01/24 13:40 87 03/01/24 13:35 98 03/01/24 13:35 84 03/01/24 13:30 20 03/01/24 13:30 20 03/01/24 13:30 99 03/01/24 13:30 86 03/01/24 13:11 88 03/01/24 13:11 114/64 03/01/24 13:00 20 03/01/24 13:00 20 03/01/24 12:18 81 03/01/24 12:18 143/74 H 03/01/24 12:00 20 03/01/24 12:00 36.9 C 20
--- NOTE | 2024-03-02 01:59 | Obstetrical Progress Note ---
Date of Service March 02, 2024 Subjective Patient was checked by her nurse and cervix was 6-7 cm/ 70%/ -1 Clear fluid + FHR categ I VSS Afebrile Oxytocin at 30 miu/min, contractions still irregular Discussed the findings with the patient and option of Oxytocin rest kathie hour and restart again per protocol Prolonged ROM, start IV Cefazolin and Clindamycin to cover gram negatives, positives including GBS and anaerobes Patient agrees with plan, desires to rest. Her went home to sleep, she plans to call him when she starts pushing Continue to monitor closely, All questions were answered. Results & Data Vital Signs (Past 12 Hours) Vital Signs Temp Pulse Resp BP Pulse Ox 03/02/24 01:55 96 H 99 03/02/24 01:50 97 H 99 03/02/24 01:45 92 H 99 03/02/24 01:43 93 H 117/68 03/02/24 01:40 95 H 99 03/02/24 01:35 96 H 99 03/02/24 01:30 90 18 99 03/02/24 01:28 94 H 142/108 H 03/02/24 01:25 79 97 03/02/24 01:20 82 97 03/02/24 01:15 81 98 03/02/24 01:12 85 130/79 03/02/24 01:10 85 97 03/02/24 01:05 83 98 03/02/24 01:00 37.2 C 03/02/24 01:00 92 H 18 99 03/02/24 00:57 85 132/82 03/02/24 00:55 89 99 03/02/24 00:50 90 99 03/02/24 00:45 89 98 03/02/24 00:42 86 128/86 03/02/24 00:40 89 98 03/02/24 00:35 98 H 98 03/02/24 00:30 141 H 20 99 03/02/24 00:27 82 114/61 03/02/24 00:25 88 99 03/02/24 00:20 88 100 03/02/24 00:15 89 99 03/02/24 00:12 84 116/63 03/02/24 00:10 87 100 03/02/24 00:05 88 100 03/02/24 00:00 88 18 99 03/01/24 23:58 88 03/01/24 23:58 125/68 03/01/24 23:55 100 03/01/24 23:55 91 H 03/01/24 23:50 99 03/01/24 23:50 89 03/01/24 23:45 99 03/01/24 23:45 93 H 03/01/24 23:42 81 03/01/24 23:42 130/87 03/01/24 23:40 99 03/01/24 23:40 85 03/01/24 23:35 100 03/01/24 23:35 92 H 03/01/24 23:30 18 03/01/24 23:30 18 03/01/24 23:30 99 03/01/24 23:30 96 H 03/01/24 23:27 85 03/01/24 23:27 130/89 03/01/24 23:25 98 03/01/24 23:25 89 03/01/24 23:20 98 03/01/24 23:20 86 03/01/24 23:15 99 03/01/24 23:15 98 H 03/01/24 23:12 126 H 03/01/24 23:12 126/87 03/01/24 23:10 99 03/01/24 23:10 133 H 03/01/24 23:05 98 03/01/24 23:05 88 03/01/24 23:00 36.9 C 03/01/24 23:00 98 03/01/24 23:00 85 03/01/24 22:57 89 03/01/24 22:57 123/77 03/01/24 22:55 97 03/01/24 22:55 92 H 03/01/24 22:50 98 03/01/24 22:50 85 03/01/24 22:45 98 03/01/24 22:45 84 03/01/24 22:42 83 03/01/24 22:42 114/68 03/01/24 22:40 97 03/01/24 22:40 83 03/01/24 22:35 95 03/01/24 22:35 92 H 03/01/24 22:30 16 03/01/24 22:30 16 03/01/24 22:30 98 03/01/24 22:30 83 03/01/24 22:27 93 H 03/01/24 22:27 116/70 03/01/24 22:25 98 03/01/24 22:25 85 03/01/24 22:20 98 03/01/24 22:20 84 03/01/24 22:15 98 03/01/24 22:15 84 03/01/24 22:12 84 03/01/24 22:12 118/71 03/01/24 22:10 99 03/01/24 22:10 90 03/01/24 22:05 98 03/01/24 22:05 92 H 03/01/24 22:00 18 03/01/24 22:00 18 03/01/24 22:00 98 03/01/24 22:00 92 H 03/01/24 21:57 86 03/01/24 21:57 118/75 03/01/24 21:55 97 03/01/24 21:55 78 03/01/24 21:50 97 03/01/24 21:50 80 03/01/24 21:45 98 03/01/24 21:45 78 03/01/24 21:43 76 03/01/24 21:43 119/71 03/01/24 21:40 98 03/01/24 21:40 81 03/01/24 21:35 98 03/01/24 21:35 79 03/01/24 21:30 18 03/01/24 21:30 18 03/01/24 21:30 98 03/01/24 21:30 87 03/01/24 21:28 93 H 03/01/24 21:28 122/67 03/01/24 21:25 98 03/01/24 21:25 80 03/01/24 21:20 97 03/01/24 21:20 79 03/01/24 21:15 98 03/01/24 21:15 83 03/01/24 21:12 77 03/01/24 21:12 118/73 03/01/24 21:10 99 03/01/24 21:10 86 03/01/24 21:05 98 03/01/24 21:05 80 03/01/24 21:00 36.9 C 18 03/01/24 21:00 18 03/01/24 21:00 18 03/01/24 21:00 99 04/01/24 21:00 80 03/01/24 20:57 76 03/01/24 20:57 118/77 03/01/24 20:55 99 03/01/24 20:55 82 03/01/24 20:50 98 03/01/24 20:50 80 03/01/24 20:45 98 03/01/24 20:45 79 03/01/24 20:43 76 03/01/24 20:43 118/76 03/01/24 20:40 99 03/01/24 20:40 78 03/01/24 20:35 99 03/01/24 20:35 85 03/01/24 20:30 18 03/01/24 20:30 18 03/01/24 20:30 99 03/01/24 20:30 87 03/01/24 20:27 85 03/01/24 20:27 107/65 03/01/24 20:25 98 03/01/24 20:25 81 03/01/24 20:20 98 03/01/24 20:20 85 03/01/24 20:15 16 03/01/24 20:15 16 03/01/24 20:15 99 03/01/24 20:15 85 03/01/24 20:12 93 H 03/01/24 20:12 109/64 03/01/24 20:10 99 03/01/24 20:10 84 03/01/24 20:05 99 03/01/24 20:05 92 H 03/01/24 20:00 18 03/01/24 20:00 18 03/01/24 20:00 100 03/01/24 20:00 94 H 03/01/24 19:57 83 03/01/24 19:57 103/59 L 03/01/24 19:55 99 03/01/24 19:55 85 03/01/24 19:50 99 03/01/24 19:50 87 03/01/24 19:45 100 03/01/24 19:45 85 03/01/24 19:42 82 03/01/24 19:42 111/64 03/01/24 19:40 100 03/01/24 19:40 82 03/01/24 19:35 99 03/01/24 19:35 82 03/01/24 19:30 18 03/01/24 19:30 18 03/01/24 19:30 99 03/01/24 19:30 88 03/01/24 19:27 76 03/01/24 19:27 118/71 03/01/24 19:25 99 03/01/24 19:25 78 03/01/24 19:20 99 03/01/24 19:20 87 03/01/24 19:15 99 03/01/24 19:15 86 03/01/24 19:12 79 03/01/24 19:12 124/79 03/01/24 19:10 99 03/01/24 19:10 84 03/01/24 19:05 99 03/01/24 19:05 90 18 03/01/24 19:00 18 03/01/24 19:00 18 03/01/24 19:00 99 03/01/24 19:00 85 03/01/24 18:57 86 03/01/24 18:57 135/86 03/01/24 18:55 99 03/01/24 18:55 90 03/01/24 18:50 99 03/01/24 18:50 89 03/01/24 18:45 99 03/01/24 18:45 96 H 03/01/24 18:43 79 03/01/24 18:43 117/76 03/01/24 18:40 98 03/01/24 18:40 87 03/01/24 18:35 98 03/01/24 18:35 82 03/01/24 18:30 99 03/01/24 18:30 85 03/01/24 18:27 86 03/01/24 18:27 109/66 03/01/24 18:25 99 03/01/24 18:25 89 03/01/24 18:20 99 03/01/24 18:20 90 03/01/24 18:15 99 03/01/24 18:15 88 03/01/24 18:12 82 03/01/24 18:12 112/68 03/01/24 18:10 98 03/01/24 18:10 84 03/01/24 18:05 98 03/01/24 18:05 80 03/01/24 18:00 18 03/01/24 18:00 18 03/01/24 18:00 98 03/01/24 18:00 78 03/01/24 17:57 78 03/01/24 17:57 103/62 03/01/24 17:55 98 03/01/24 17:55 84 03/01/24 17:50 98 03/01/24 17:50 82 03/01/24 17:45 98 03/01/24 17:45 83 03/01/24 17:42 80 03/01/24 17:42 107/64 03/01/24 17:40 98 03/01/24 17:40 82 03/01/24 17:35 98 03/01/24 17:35 83 03/01/24 17:30 20 03/01/24 17:30 20 03/01/24 17:30 99 03/01/24 17:30 81 03/01/24 17:28 81 03/01/24 17:28 106/64 03/01/24 17:25 98 03/01/24 17:25 79 03/01/24 17:20 99 03/01/24 17:20 81 03/01/24 17:15 99 03/01/24 17:15 84 03/01/24 17:12 84 03/01/24 17:12 110/62 03/01/24 17:10 98 03/01/24 17:10 82 03/01/24 17:05 36.7 C 03/01/24 17:05 99 03/01/24 17:05 86 03/01/24 17:00 99 03/01/24 17:00 82 03/01/24 16:57 85 03/01/24 16:57 106/62 03/01/24 16:55 98 03/01/24 16:55 79 03/01/24 16:50 98 03/01/24 16:50 81 03/01/24 16:45 98 03/01/24 16:45 81 03/01/24 16:42 81 03/01/24 16:42 96/59 L 03/01/24 16:40 98 03/01/24 16:40 79 03/01/24 16:35 98 03/01/24 16:35 88 03/01/24 16:30 18 03/01/24 16:30 18 03/01/24 16:30 97 03/01/24 16:30 85 03/01/24 16:28 81 03/01/24 16:28 108/68 03/01/24 16:25 98 03/01/24 16:25 90 03/01/24 16:20 98 03/01/24 16:20 86 03/01/24 16:15 99 03/01/24 16:15 86 03/01/24 16:12 86 03/01/24 16:12 106/74 03/01/24 16:10 97 03/01/24 16:10 77 03/01/24 16:05 97 03/01/24 16:05 78 03/01/24 16:00 20 03/01/24 16:00 20 03/01/24 16:00 98 03/01/24 16:00 85 03/01/24 15:57 75 03/01/24 15:57 113/74 03/01/24 15:55 97 03/01/24 15:55 96 H 03/01/24 15:50 97 03/01/24 15:50 75 03/01/24 15:45 98 03/01/24 15:45 84 03/01/24 15:43 78 03/01/24 15:43 117/76 03/01/24 15:40 98 03/01/24 15:40 102 H 03/01/24 15:35 98 03/01/24 15:35 85 03/01/24 15:30 20 03/01/24 15:30 20 03/01/24 15:30 97 03/01/24 15:30 83 03/01/24 15:27 88 03/01/24 15:27 122/77 03/01/24 15:25 97 03/01/24 15:25 79 03/01/24 15:20 98 03/01/24 15:20 91 H 03/01/24 15:15 99 03/01/24 15:15 88 03/01/24 15:12 96 H 03/01/24 15:12 127/79 03/01/24 15:10 98 03/01/24 15:10 90 03/01/24 15:05 98 03/01/24 15:05 86 03/01/24 15:00 18 03/01/24 15:00 18 03/01/24 15:00 98 03/01/24 15:00 100 H 03/01/24 14:55 99 03/01/24 14:55 103 H 03/01/24 14:55 123/74 03/01/24 14:50 98 03/01/24 14:50 98 H 03/01/24 14:45 99 03/01/24 14:45 92 H 03/01/24 14:45 133/76 03/01/24 14:40 97 03/01/24 14:40 85 03/01/24 14:39 88 03/01/24 14:39 126/74 03/01/24 14:35 20 03/01/24 14:35 20 03/01/24 14:35 98 03/01/24 14:35 111 H 03/01/24 14:34 109 H 03/01/24 14:34 134/75 03/01/24 14:30 20 03/01/24 14:30 20 03/01/24 14:30 99 03/01/24 14:30 99 H 03/01/24 14:28 90 03/01/24 14:28 121/69 03/01/24 14:27 107 H 03/01/24 14:27 120/76 03/01/24 14:25 98 03/01/24 14:25 97 H 03/01/24 14:24 93 H 03/01/24 14:24 128/85 03/01/24 14:22 90 03/01/24 14:22 127/80 03/01/24 14:20 97 03/01/24 14:20 87 03/01/24 14:20 85 03/01/24 14:20 133/82 03/01/24 14:18 90 03/01/24 14:18 134/89 03/01/24 14:15 98 03/01/24 14:15 87 03/01/24 14:15 86 03/01/24 14:15 136/92 03/01/24 14:10 98 03/01/24 14:10 90 03/01/24 14:05 98 03/01/24 14:05 88 03/01/24 14:00 36.9 C 03/01/24 14:00 98 03/01/24 14:00 89
[2024-03-02] MEDS: ceFAZolin 2000MG 2,000 MG/15 ML SYR IV SCH ×2 (02:20→23:54)
[2024-03-02] MEDS: CLINDAMYCIN/D5W 900 MG/50 ML BAG IV SCH (02:24)
[2024-03-02] MEDS: OXYTOCIN 30 UNITS/NSS 30 UNITS/500 ML BAG IV PRN ×2 (03:30→20:32)
[2024-03-02] MEDS: LEVOTHYROXINE SODIUM 25 MCG TABLET PO SCH (06:07)
--- NOTE | 2024-03-02 07:21 | Obstetrical Progress Note ---
Date of Service March 02, 2024 Assessment & Plan Admission and Anticipated Discharge Date Admission Date: March 01, 2024 Subjective Patient is reevaluated. She has been resting, no complaints Afebrile FHR categ I Oxytocin was restarted at 3 am, now at 12 miu/min Received Clindamycin and Cefazolin at 02:30 am VE; 8-9 cm/ 70-80%/0 station, still OP, anterior fontanelle at 1-2 o'clock position Continue to monitor closely Will sign out to Dr Rollins Results & Data Vital Signs (Past 12 Hours) Vital Signs Temp Pulse Resp BP Pulse Ox 03/02/24 07:15 86 98 03/02/24 07:13 88 142/81 H 03/02/24 07:10 92 H 98 03/02/24 07:05 95 H 99 03/02/24 07:00 88 18 98 03/02/24 06:57 88 107/69 03/02/24 06:55 91 H 98 03/02/24 06:50 92 H 98 03/02/24 06:45 101 H 98 03/02/24 06:43 104 H 117/70 03/02/24 06:40 90 98 03/02/24 06:35 81 96 03/02/24 06:30 79 18 96 03/02/24 06:28 76 115/69 03/02/24 06:25 81 97 03/02/24 06:20 80 97 03/02/24 06:15 82 98 03/02/24 06:13 82 122/74 03/02/24 06:10 36.9 C 100 H 18 97 03/02/24 06:05 84 96 03/02/24 06:00 83 18 96 03/02/24 05:58 85 114/68 03/02/24 05:55 83 96 03/02/24 05:50 85 97 03/02/24 05:45 84 97 03/02/24 05:42 85 118/66 03/02/24 05:40 87 97 03/02/24 05:35 91 H 98 03/02/24 05:30 90 18 98 03/02/24 05:27 87 123/72 03/02/24 05:25 89 98 03/02/24 05:20 96 H 98 03/02/24 05:15 93 H 97 03/02/24 05:13 90 102/56 L 03/02/24 05:10 93 H 98 03/02/24 05:05 102 H 97 03/02/24 05:02 100 H 108/60 03/02/24 05:00 37.0 C 03/02/24 05:00 18 03/02/24 05:00 18 03/02/24 05:00 102 H 18 98 03/02/24 04:55 101 H 98 03/02/24 04:50 85 97 03/02/24 04:45 88 98 03/02/24 04:43 86 121/67 03/02/24 04:40 89 97 03/02/24 04:35 95 H 97 03/02/24 04:30 89 16 97 03/02/24 04:28 91 H 127/76 03/02/24 04:25 83 96 03/02/24 04:20 88 96 03/02/24 04:15 91 H 95 03/02/24 04:13 81 117/68 03/02/24 04:10 94 H 95 03/02/24 04:05 90 96 03/02/24 04:00 84 96 03/02/24 03:57 91 H 115/68 03/02/24 03:55 90 97 03/02/24 03:50 88 96 03/02/24 03:45 87 96 03/02/24 03:42 83 120/70 03/02/24 03:40 90 96 03/02/24 03:35 84 97 03/02/24 03:30 90 16 97 03/02/24 03:29 83 117/70 03/02/24 03:25 82 96 03/02/24 03:20 83 96 03/02/24 03:15 82 97 03/02/24 03:14 80 117/74 03/02/24 03:10 81 97 03/02/24 03:05 93 H 96 03/02/24 03:00 37.1 C 18 03/02/24 03:00 99 H 97 03/02/24 02:57 98 H 114/64 03/02/24 02:55 93 H 98 03/02/24 02:50 92 H 97 03/02/24 02:45 93 H 97 03/02/24 02:42 88 125/69 03/02/24 02:40 96 H 99 04/02/24 02:35 92 H 98 03/02/24 02:30 93 H 98 03/02/24 02:28 96 H 112/67 03/02/24 02:25 95 H 98 03/02/24 02:20 105 H 98 03/02/24 02:15 91 H 98 03/02/24 02:12 90 125/73 03/02/24 02:10 101 H 99 03/02/24 02:05 93 H 99 03/02/24 02:00 95 H 99 03/02/24 01:57 96 H 109/69 03/02/24 01:55 96 H 99 03/02/24 01:50 97 H 99 03/02/24 01:45 92 H 99 03/02/24 01:43 93 H 117/68 03/02/24 01:40 95 H 99 03/02/24 01:35 96 H 99 03/02/24 01:30 90 18 99 03/02/24 01:28 94 H 142/108 H 03/02/24 01:25 79 97 03/02/24 01:20 82 97 03/02/24 01:15 81 98 03/02/24 01:12 85 130/79 03/02/24 01:10 85 97 03/02/24 01:05 83 98 03/02/24 01:00 37.2 C 03/02/24 01:00 92 H 18 99 03/02/24 00:57 85 132/82 03/02/24 00:55 89 99 03/02/24 00:50 90 99 03/02/24 00:45 89 98 03/02/24 00:42 86 128/86 03/02/24 00:40 89 98 03/02/24 00:35 98 H 98 03/02/24 00:30 141 H 20 99 03/02/24 00:27 82 114/61 03/02/24 00:25 88 99 03/02/24 00:20 88 100 03/02/24 00:15 89 99 02 00:12 84 116/63 03/02/24 00:10 87 100 03/02/24 00:05 88 100 03/02/24 00:00 88 18 99 03/01/24 23:58 88 03/01/24 23:58 125/68 03/01/24 23:55 100 03/01/24 23:55 91 H 03/01/24 23:50 99 03/01/24 23:50 89 03/01/24 23:45 99 03/01/24 23:45 93 H 03/01/24 23:42 81 03/01/24 23:42 130/87 03/01/24 23:40 99 03/01/24 23:40 85 03/01/24 23:35 100 03/01/24 23:35 92 H 03/01/24 23:30 18 03/01/24 23:30 18 03/01/24 23:30 99 03/01/24 23:30 96 H 03/01/24 23:27 85 03/01/24 23:27 130/89 03/01/24 23:25 98 03/01/24 23:25 89 03/01/24 23:20 98 03/01/24 23:20 86 03/01/24 23:15 99 03/01/24 23:15 98 H 03/01/24 23:12 126 H 03/01/24 23:12 126/87 03/01/24 23:10 99 03/01/24 23:10 133 H 03/01/24 23:05 98 03/01/24 23:05 88 03/01/24 23:00 36.9 C 03/01/24 23:00 98 03/01/24 23:00 85 03/01/24 22:57 89 03/01/24 22:57 123/77 03/01/24 22:55 97 03/01/24 22:55 92 H 03/01/24 22:50 98 03/01/24 22:50 85 03/01/24 22:45 98 03/01/24 22:45 84 03/01/24 22:42 83 03/01/24 22:42 114/68 03/01/24 22:40 97 03/01/24 22:40 83 03/01/24 22:35 95 03/01/24 22:35 92 H 03/01/24 22:30 16 03/01/24 22:30 16 03/01/24 22:30 98 03/01/24 22:30 83 03/01/24 22:27 93 H 03/01/24 22:27 116/70 03/01/24 22:25 98 03/01/24 22:25 85 03/01/24 22:20 98 03/01/24 22:20 84 03/01/24 22:15 98 03/01/24 22:15 84 03/01/24 22:12 84 03/01/24 22:12 118/71 03/01/24 22:10 99 03/01/24 22:10 90 03/01/24 22:05 98 03/01/24 22:05 92 H 03/01/24 22:00 18 03/01/24 22:00 18 03/01/24 22:00 98 03/01/24 22:00 92 H 03/01/24 21:57 86 03/01/24 21:57 118/75 03/01/24 21:55 97 03/01/24 21:55 78 03/01/24 21:50 97 03/01/24 21:50 80 03/01/24 21:45 98 03/01/24 21:45 78 03/01/24 21:43 76 03/01/24 21:43 119/71 03/01/24 21:40 98 03/01/24 21:40 81 03/01/24 21:35 98 03/01/24 21:35 79 03/01/24 21:30 18 03/01/24 21:30 18 03/01/24 21:30 98 03/01/24 21:30 87 03/01/24 21:28 93 H 03/01/24 21:28 122/67 03/01/24 21:25 98 03/01/24 21:25 80 03/01/24 21:20 97 03/01/24 21:20 79 03/01/24 21:15 98 03/01/24 21:15 83 03/01/24 21:12 77 03/01/24 21:12 118/73 03/01/24 21:10 99 03/01/24 21:10 86 03/01/24 21:05 98 03/01/24 21:05 80 03/01/24 21:00 36.9 C 18 03/01/24 21:00 18 03/01/24 21:00 18 03/01/24 21:00 99 03/01/24 21:00 80 03/01/24 20:57 76 04/01/24 20:57 118/77 03/01/24 20:55 99 03/01/24 20:55 82 03/01/24 20:50 98 03/01/24 20:50 80 03/01/24 20:45 98 03/01/24 20:45 79 03/01/24 20:43 76 03/01/24 20:43 118/76 03/01/24 20:40 99 03/01/24 20:40 78 03/01/24 20:35 99 03/01/24 20:35 85 03/01/24 20:30 18 03/01/24 20:30 18 03/01/24 20:30 99 03/01/24 20:30 87 03/01/24 20:27 85 03/01/24 20:27 107/65 03/01/24 20:25 98 03/01/24 20:25 81 03/01/24 20:20 98 03/01/24 20:20 85 03/01/24 20:15 16 03/01/24 20:15 16 03/01/24 20:15 99 03/01/24 20:15 85 03/01/24 20:12 93 H 03/01/24 20:12 109/64 03/01/24 20:10 99 03/01/24 20:10 84 03/01/24 20:05 99 03/01/24 20:05 92 H 03/01/24 20:00 18 03/01/24 20:00 18 03/01/24 20:00 100 03/01/24 20:00 94 H 03/01/24 19:57 83 03/01/24 19:57 103/59 L 03/01/24 19:55 99 03/01/24 19:55 85 03/01/24 19:50 99 03/01/24 19:50 87 03/01/24 19:45 100 03/01/24 19:45 85 03/01/24 19:42 82 03/01/24 19:42 111/64 03/01/24 19:40 100 03/01/24 19:40 82 03/01/24 19:35 99 03/01/24 19:35 82 03/01/24 19:30 18 03/01/24 19:30 18 03/01/24 19:30 99 03/01/24 19:30 88 03/01/24 19:27 76 03/01/24 19:27 118/71 03/01/24 19:25 99 03/01/24 19:25 78 03/01/24 19:20 99 03/01/24 19:20 87
--- OUTSIDE RECORDS SUMMARY | 2024-03-02 07:43 | External Medical Summary | Summary of Care ---
Author Name Unknown Organization [facility] Address [address] [place] [address] Phone [phone] Care Team Providers Care Clinical Practice Consultant Name Role Phone Shanice Milian MD Primary Care Provider Encounter Details Date Type Department Care Team (Late st Contact Info) Description 03/01/2024 Result Scan Unspecified Department <No scans attached> Allergies No known active allergiesdocumented as of this encounter (statuses as of 03/01/2024) Medications Medication Sig Dispensed Refills Start Date [...] as of this encounter (statuses as of 03/01/2024) Active Problems Problem Noted Date Diagnosed Date [...] as of this encounter (statuses as of 03/01/2024) Resolved Problems Problem Noted Date Diagnosed Date Resolved Date 7 weeks gestation of 08/01/2023 02/17/2024 Pap smear for cervical cancer screening 08/28/2022 01/01/2023 HPV (human papilloma virus) infection 08/28/2022 01/07/2023 documented as of this encounter (statuses as of 03/01/2024) Immunizations Name Administration Dates Next Due TDAP [...] money to get more. Never true 10/06/2023 [place] Depression Scale Answer Date Recorded [place] Depression Scale Total 19 01/29/2024 The thought [...] Gynecology/Obstetrics [facility] [address] [place] [id number] Brittaney Navarro PA-C [address] [place] [address] [place] [id number] Patric, Non Stress Tests [facility] [address] [place] [address] 03/11/2024 10:15 AM EDT Office Visit Gynecology/Obstetrics Sondra Spivey [address] [place] [id number] Janet Han CRNP [address] [place] [id number] Patric, Non Stress Tests [facility] [address] [place] [id number] Health Maintenance Due Date Last Done Comments Hepatitis B (1 of 3 - 19+ 3-dose series) 2000 HPV/Co-Test 2011 Lipid Panel 07/15/2021 07/15/2016 COVID-19 Vaccine (2022- season) 2023 Mammogram 08/29/2023 08/29/2022, 07/02, 07/19/2021 Depression Screening 11/13/2023 11/13/2022 Influenza Vaccine (FLU shot) (Season Ended) 2024 TSH 02/25/2025 02/26/2024, 12/01, 11/17/2023, Additional history exists Cervical Cancer Screening 08/28/2025 Pap Smear 08/28/2025 08/28/2022, 12/2020, 11/09/2018, Additional history exists Diabetes Screening 03/01/2027 03/01/2024, 07/15/2016 DTaP,Tdap,and Td Vaccines (3 - Td or [...] Procedure Name Priority Date/Time Associated Diagnosis Comments OUTSIDE LAB RESULTS 03/01/2024 documented in this encounter Results * OUTSIDE LAB RESULTS (03/01/2024) 03/01/2024 No Physician Data Unknown LABORATORY documented in this encounter Care Teams Clinical Practice Consultant Relationship Specialty Start Date End Date Shanice Milian MD [address] [place] [id number] PCP - General Internal Medicine 11/13/22 documented as of this encounter
--- OUTSIDE RECORDS SUMMARY | 2024-03-02 07:43 | External Medical Summary | Summary of Care ---
Author Name Unknown Organization [facility] Address [address] [place] [address] Phone [phone] Care Team Providers Care Life Sciences Manager Name Role Phone Shanice Milian MD Primary Care Provider Encounter Details Date Type Department Care Team (Late st Contact Info) Description 03/01/2024 Orders Only Gynecology/Obstetrics [facility] [address] [place] [address] Heather Blanchard MD [address] [place], [place] [id number] Allergies No known active allergiesdocumented as of [...] money to get more. Never true 10/06/2023 [place] Depression Scale Answer Date Recorded [place] Depression Scale Total 19 01/29/2024 The thought [...] 03/04/2024 10:15 AM EDT Office Visit Gynecology/Obstetrics [facility] [address] [place] [phone] Brittaney Navarro PA-C [address] [place] [address] [place] [phone] [facility], Non Stress Tests [facility] [address] [place] [id number] 03/11/2024 10:15 AM EDT Office Visit Gynecology/Obstetrics [facility] [address] [place] [phone] Janet Han CRNP [address] [place] [phone] [facility] Non Stress Tests [facility] [address] [place] [id number] Health Maintenance Due Date Last Done Comments Hepatitis B (1 of 3 - 19+ 3-dose series) 2000 HPV/Co-Test 2011 Diabetes Screening 07/15/2019 03/01/2024, 07/15/2016 Lipid Panel 07/15/2021 07/15/2016 COVID-19 Vaccine ( season) 2023 Mammogram 08/29/2023 08/29/2022, 07/02, 07/19/2021 Depression Screening 11/13/2023 11/13/2022 Influenza Vaccine (FLU shot) (Season Ended) 2024 TSH 02/25/2025 02/26/2024, 12/01, 11/17/2023, Additional history exists Cervical Cancer Screening 08/28/2025 Pap Smear 08/28/2025 08/28/2022, 2021, 11/09/2018, Additional history exists DTaP,Tdap,and Td Vaccines [...] Procedure Name Priority Date/Time Associated Diagnosis Comments CHEMISTRY-OUTSIDE Routine 03/01/2024 documented in this encounter Results * CHEMISTRY-OUTSIDE (03/01/2024) Not all results display below - see scan for full detail OUTSIDE LAB (SEE SCANNED REPORT) Comment:SEE SCAN; CMP,CBCD CREATININE-OUTSID E LAB 0.65 0.6 - 1.2 MG/DL OUTSIDE LAB (SEE SCANNED REPORT) EGFR-OUTSIDE LAB 109.5 ML/MIN/1.7 3M2 OUTSIDE LAB (SEE SCANNED REPORT) POTASSIUM-OUTSIDE LAB 3.6 3.5 - 5.1 MMOL/L OUTSIDE LAB (SEE SCANNED REPORT) GLUCOSE-OUTSIDE LAB 80 70 - 99 MG/DL OUTSIDE LAB (SEE SCANNED REPORT) HOURS FASTING OUTSID E LAB (SEE SCANNED REPORT) TRIGLYCERIDES-OUT SIDE LAB OUTSIDE LAB (SEE SCANNED REPORT) CHOLESTEROL-OUTSI DE LAB OUTSIDE LAB (SEE SCANNED REPORT) HDL-OUTSIDE LAB OUTS [facility] (SEE SCANNED REPORT) CHOL/HDL RATIO-OUTSIDE LAB OUTSIDE [facility] (SEE SCANNED REPORT) LDL (CALCULATED)-OUTS [facility] OUTSIDE LAB (SEE SCANNED REPORT) LDL (DIRECT MEASURE)-OUTSIDE LAB OUTSIDE LAB (SEE SCANNED REPORT) HEMOGLOBIN, K7D-[id number] LAB OUTSIDE LAB (SEE SCANNED REPORT) PHOSPHORUS-OUTSID E LAB OUTSIDE LAB (SEE SCANNED REPORT) PTH-OUTSIDE LAB OUTS [facility] (SEE SCANNED REPORT) MICROALBUMIN RATIO-OUTSIDE LAB OUTSIDE LA B (SEE SCANNED REPORT) PROTEIN, UA-OUTSIDE LAB OUTSIDE LAB (SEE SCANNED REPORT) HGB 13.4 12.0 - 16.0 G/DL OUTSIDE LAB (SEE SCANNED REPORT) 03/01/2024 Ashlie Flores MD LABORATORY OUTSIDE LAB (SEE SCANNED REPORT) documented in this encounter Care Teams Life Sciences Manager Relationship Specialty Start Date End Date Shanice Milian MD [address] [place] [id number] PCP - General Internal Medicine 11/13/22 documented as of this encounter
[2024-03-02] MEDS: ONDANSETRON INJ 2 MG/ML 2 ML VIAL ONE (10:43)
[2024-03-02] MEDS ORDERED: NURSING L&D Epidural Breakthrough Pain Update ONE (13:28)
--- NOTE | 2024-03-02 13:46 | Labor Progress Brief Note ---
Date of Service March 02, 2024 Assessment & Plan Admission and Anticipated Discharge Date Admission Date: March 01, 2024 Physical Exam Genitourinary: Manual OB Exam: + cervical dilation 9 cm and 10 cm, + cervical effacement 100%, + station 0 and + amniotic fluid clear OB Exam Monitor Tracing: + external FHT monitor used, + external uterine monitor used, + category I and + normal FHT variability right anterior rim Results & Data Vital Signs (Past 12 Hours) Vital Signs Temp Pulse Resp BP Pulse Ox 03/02/24 13:42 90 131/84 03/02/24 13:40 90 97 03/02/24 13:35 89 96 03/02/24 13:30 92 H 97 03/02/24 13:28 89 113/68 03/02/24 13:25 88 97 03/02/24 13:20 89 98 03/02/24 13:15 36.9 C 95 H 20 98 03/02/24 13:12 87 121/82 03/02/24 13:10 89 98 03/02/24 13:05 91 H 98 03/02/24 13:00 80 97 03/02/24 12:57 82 126/76 03/02/24 12:55 84 97 03/02/24 12:50 86 97 03/02/24 12:45 83 97 03/02/24 12:43 82 119/72 03/02/24 12:40 81 97 03/02/24 12:35 87 97 03/02/24 12:30 91 H 20 97 03/02/24 12:28 88 125/63 03/02/24 12:25 85 96 03/02/24 12:20 92 H 98 03/02/24 12:15 86 97 03/02/24 12:13 90 123/64 03/02/24 12:10 86 96 03/02/24 12:05 96 H 96 03/02/24 12:00 91 H 97 03/02/24 11:57 96 H 110/66 03/02/24 11:55 89 96 03/02/24 11:50 87 96 03/02/24 11:45 88 96 03/02/24 11:42 87 104/60 03/02/24 11:40 93 H 96 03/02/24 11:35 91 H 96 03/02/24 11:30 91 H 20 97 03/02/24 11:27 98 H 125/76 04 11:25 96 H 97 03/02/24 11:20 91 H 97 03/02/24 11:15 103 H 97 03/02/24 11:12 90 119/70 03/02/24 11:10 36.9 C 95 H 18 97 03/02/24 11:05 95 H 98 03/02/24 11:00 100 H 20 98 03/02/24 10:57 90 135/81 03/02/24 10:55 91 H 98 03/02/24 10:50 93 H 97 03/02/24 10:45 91 H 98 03/02/24 10:42 100 H 143/78 H 03/02/24 10:40 123 H 97 03/02/24 10:35 86 97 03/02/24 10:30 96 H 20 98 03/02/24 10:27 85 125/85 03/02/24 10:25 85 98 03/02/24 10:20 88 98 03/02/24 10:15 91 H 98 03/02/24 10:12 86 122/80 03/02/24 10:10 88 97 03/02/24 10:05 86 97 03/02/24 10:00 18 03/02/24 10:00 89 18 96 03/02/24 09:58 89 119/76 03/02/24 09:55 98 H 98 03/02/24 09:50 86 96 03/02/24 09:45 91 H 96 03/02/24 09:42 93 H 114/64 03/02/24 09:40 91 H 96 03/02/24 09:35 87 96 03/02/24 09:30 91 H 20 97 03/02/24 09:28 88 115/63 03/02/24 09:25 87 97 03/02/24 09:20 92 H 97 03/02/24 09:15 103 H 97 03/02/24 09:13 89 110/64 03/02/24 09:10 92 H 96 03/02/24 09:05 94 H 97 03/02/24 09:00 36.7 C 03/02/24 09:00 92 H 18 97 02 08:58 92 H 120/75 03/02/24 08:55 91 H 97 03/02/24 08:50 96 H 98 03/02/24 08:45 92 H 98 03/02/24 08:42 93 H 123/69 03/02/24 08:40 97 H 98 03/02/24 08:35 109 H 98 03/02/24 08:30 98 H 20 98 03/02/24 08:27 96 H 113/68 03/02/24 08:25 92 H 98 03/02/24 08:20 92 H 97 03/02/24 08:15 93 H 97 03/02/24 08:12 88 128/74 03/02/24 08:10 88 97 03/02/24 08:05 88 97 03/02/24 08:00 88 97 03/02/24 07:58 75 118/67 03/02/24 07:55 83 96 03/02/24 07:50 88 96 03/02/24 07:45 84 97 03/02/24 07:42 82 125/71 03/02/24 07:40 79 97 03/02/24 07:35 85 96 03/02/24 07:30 86 97 03/02/24 07:28 79 127/78 03/02/24 07:25 91 H 98 03/02/24 07:20 87 97 03/02/24 07:15 86 98 03/02/24 07:13 88 142/81 H 03/02/24 07:10 92 H 98 03/02/24 07:05 95 H 99 03/02/24 07:00 37.1 C 20 03/02/24 07:00 88 18 98 03/02/24 06:57 88 107/69 03/02/24 06:55 91 H 98 02 06:50 92 H 98 03/02/24 06:45 101 H 98 03/02/24 06:43 104 H 117/70 03/02/24 06:40 90 98 02 06:35 81 96 03/02/24 06:30 79 18 96 03/02/24 06:28 76 115/69 03/02/24 06:25 81 97 02 06:20 80 97 02 06:15 82 98 03/02/24 06:13 82 122/74 03/02/24 06:10 36.9 C 100 H 18 97 03/02/24 06:05 84 96 03/02/24 06:00 83 18 96 03/02/24 05:58 85 114/68 03/02/24 05:55 83 96 03/02/24 05:50 85 97 03/02/24 05:45 84 97 03/02/24 05:42 85 118/66 03/02/24 05:40 87 97 03/02/24 05:35 91 H 98 03/02/24 05:30 90 18 98 03/02/24 05:27 87 123/72 03/02/24 05:25 89 98 03/02/24 05:20 96 H 98 03/02/24 05:15 93 H 97 03/02/24 05:13 90 102/56 L 03/02/24 05:10 93 H 98 03/02/24 05:05 102 H 97 03/02/24 05:02 100 H 108/60 03/02/24 05:00 37.0 C 03/02/24 05:00 18 03/02/24 05:00 18 03/02/24 05:00 102 H 18 98 03/02/24 04:55 101 H 98 03/02/24 04:50 85 97 03/02/24 04:45 88 98 03/02/24 04:43 86 121/67 03/02/24 04:40 89 97 03/02/24 04:35 95 H 97 03/02/24 04:30 89 16 97 03/02/24 04:28 91 H 127/76 03/02/24 04:25 83 96 03/02/24 04:20 88 96 03/02/24 04:15 91 H 95 03/02/24 04:13 81 117/68 03/02/24 04:10 94 H 95 03/02/24 04:05 90 96 03/02/24 04:00 84 96 03/02/24 03:57 91 H 115/68 03/02/24 03:55 90 97 03/02/24 03:50 88 96 03/02/24 03:45 87 96 03/02/24 03:42 83 120/70 03/02/24 03:40 90 96 03/02/24 03:35 84 97 03/02/24 03:30 90 16 97 04/02/24 03:29 83 117/70 04/02/24 03:25 82 96 03/02/24 03:20 83 96 03/02/24 03:15 82 97 03/02/24 03:14 80 117/74 03/02/24 03:10 81 97 03/02/24 03:05 93 H 96 03/02/24 03:00 37.1 C 18 03/02/24 03:00 99 H 97 03/02/24 02:57 98 H 114/64 03/02/24 02:55 93 H 98 03/02/24 02:50 92 H 97 03/02/24 02:45 93 H 97 03/02/24 02:42 88 125/69 03/02/24 02:40 96 H 99 03/02/24 02:35 92 H 98 03/02/24 02:30 93 H 98 03/02/24 02:28 96 H 112/67 03/02/24 02:25 95 H 98 03/02/24 02:20 105 H 98 03/02/24 02:15 91 H 98 03/02/24 02:12 90 125/73 03/02/24 02:10 101 H 99 03/02/24 02:05 93 H 99 03/02/24 02:00 95 H 99 03/02/24 01:57 96 H 109/69 03/02/24 01:55 96 H 99 03/02/24 01:50 97 H 99
[2024-03-02] MEDS: fentANYL 2 MCG/ML BUPIVacaine 0.125%-NSS 100ML BAG EPI PRN (15:33)
[2024-03-02] MEDS ORDERED: ONDANSETRON INJ 2 MG/ML 2 ML VIAL IV PRN (15:41)
[2024-03-02] MEDS ORDERED: diphenhydrAMINE 50 MG/ML VIAL IV PRN ×2 (15:41→21:52)
[2024-03-02] MEDS ORDERED: NALOXONE HCL 0.4 MG/1 ML VIAL/CARP IV PRN (15:41)
[2024-03-02] MEDS ORDERED: NALOXONE HCL 1 MG in SODIUM CHLORIDE 0.9% 1,000 ML IV PRN (15:41)
[2024-03-02] MEDS ORDERED: ROPIVACAINE 0.5% PF 5 MG/ML 20 ML VIAL EPI PRN (15:41)
[2024-03-02] MEDS ORDERED: ePHEDrine sulfate 50 MG/ML AMP IV PRN (15:41)
[2024-03-02] MEDS ORDERED: NALBUPHINE HCL 5 MG in SYRINGE 0 ML IV PRN (15:41)
[2024-03-02] MEDS ORDERED: BUPIVACAINE 0.25% PF 30 ML VIAL EPI PRN (15:41)
[2024-03-02] MEDS ORDERED: SODIUM CHLORIDE 0.9% PF INJ 10 ML VIAL EPI PRN (15:41)
[2024-03-02] MEDS ORDERED: LIDOCAINE 2% MPF LOCAL 5 ML VIAL EPI PRN (15:41)
[2024-03-02] MEDS ORDERED: fentaNYL citrate PF 100 MCG/2 ML VIAL EPI PRN (15:41)
[2024-03-02] MEDS: fentANYL 2 MCG/ML BUPIVacaine 0.125%-NSS 100ML BAG ONE (15:44)
[2024-03-02] MEDS: LIDOCAINE 2%/EPINEPHRINE 1:200,000 20 ML PF EPI STA (16:59)
[2024-03-02] MEDS: fentaNYL citrate PF 100 MCG/2 ML VIAL EPI STA (16:59)
[2024-03-02] MEDS: BUPIVACAINE 0.25% PF 30 ML VIAL EPI STA (16:59)
[2024-03-02] MEDS: SODIUM CHLORIDE 0.9% PF INJ 10 ML VIAL EPI STA (16:59)
[2024-03-02] MEDS: ONDANSETRON INJ 2 MG/ML 2 ML VIAL IV PRN ×2 (17:58→23:53)
--- NOTE | 2024-03-02 21:00 | Operative Report ---
PG Post Operative Report Pre & Post Diagnosis Pre-op diagnosis: s/p vaginal delivery Post-op diagnosis: s/p vaginal delivery avulsed cord I identified the patient and participated in the time-out.: Yes Procedure Manual extraction of placenta Surgeon Isabela Figueroa MD Irrigation Service Technician None Estimated Blood Loss 100 (during placenta delivery) Findings Consistent with Post-Op Diagnosis Specimens Placenta Anesthesia Type Labor Epidural Complications none Disposition Accompanied Patient To Recovery: Yes Indications Patient delivered with primary OB, however they were called away due to another patient emergency and so I was called to assist in delivery of placenta Description of Procedure Introduced myself to patient as additional OB provider and received delivery information from primary provider. Gentle traction of umbilical cord did not deliver placenta. Fundal massage was performed to try to deliver placenta, gentle traction again performed and cord was noted to easily avulse. Patient and were counseled regarding findings and need for manual extraction and they were agreeable. Manual extraction was performed and placenta was able to be removed. Additional sweep did not reveal retained products. Examination of placenta suggested complete removal. Additional sweep was again performed and no palpable retained products were noted. Bleeding appeared wnl. Examination of previously performed repair demonstrated slight separation so additional stitches were placed to reinforce repair. There was good hemostasis. Sponge, needle, and instrument counts were correct during placenta removal I attest to the content of the Intraoperative Record and any orders documented therein. Any exceptions are noted below. OB Procedure Charges 16737 Delivery of Placenta Only
--- NOTE | 2024-03-02 21:30 | Anesthesia Procedure Note ---
Date of Service March 02, 2024 Anesthesia Post Epidural Note Vital Signs Vital Signs: Temp Pulse Resp BP Pulse Ox 98.2 F 106 H 20 136/63 99 03/02/24 19:05 03/02/24 21:13 03/02/24 18:55 03/02/24 21:13 03/02/24 20:40 Notes Mental Status: alert / awake / arousable and participated in evaluation Nausea / Vomiting: adequately controlled Pain: adequately controlled Airway Patency, RR, SpO2: stable & adequate BP & HR: stable & adequate Hydration State: stable & adequate Neuraxial Anesthesia: was administered and sensory block is resolving Anesthetic Complications: no major complications apparent and Pt Satisfied with anesthetic care Epidural: Removed without complications and With tip intact
--- NOTE | 2024-03-02 21:43 | Delivery Summary ---
Vaginal Delivery Summary Date of Service March 02, 2024 Vaginal Delivery Summary live female HAYLEY with nuchal cord x1 reduced at delivery of head. Apgars 8/9 weight pending. Cord blood obtained. Placenta undelivered and I had called Dr. Figueroa in to deliver the placenta while I attended a stat . prior to this I repaired a second degree laceration. QBL 474. Dr. Figueroa put in a separate note for a manual delivery of the placenta with her EBL 0f 100 ml.
[2024-03-02] MEDS ORDERED: OXYTOCIN 20 UNITS/LR 1,002 ML IV SCH (21:52)
[2024-03-02] MEDS ORDERED: SENNA 8.6 MG TAB PO PRN (21:52)
[2024-03-02] MEDS ORDERED: HYDROCORTISONE ACETATE 25 MG SUPP PR PRN (21:52)
[2024-03-02] MEDS ORDERED: oxyCODONE/ACETAMINOPHEN 5mg/325mg TAB PO PRN (21:52)
[2024-03-02] MEDS ORDERED: MAGNESIUM HYDROXIDE SUSP 30 ML UDC PO PRN (21:52)
[2024-03-02] MEDS ORDERED: diphenhydrAMINE Capsule 25 MG CAP PO PRN (21:52)
[2024-03-02] MEDS ORDERED: PROMETHAZINE HCL 25 MG in SODIUM CHLORIDE 0.9% 50 ML IV PRN (21:52)
[2024-03-03] MEDS: IBUPROFEN 600 MG TAB PO PRN (05:55)
[2024-03-03] MEDS: LEVOTHYROXINE SODIUM 50 MCG TABLET PO SCH (05:56)
[2024-03-03] MEDS ORDERED: LACTATED RINGER'S 1,000 ML IV SCH (06:00)
[2024-03-03] MEDS: BENZOCAINE 20% SPRY 85 APPLN/85 GM CAN EXT PRN (06:07)
[2024-03-03 06:35] LABS: Basophils # (auto) 0.06 K/uL (0.00-0.20); Basophils % (auto) 0.3 %; Eosinophils # (auto) 0.14 K/uL (0.00-0.50); Eosinophils % (auto) 0.6 %; Hematocrit (blood only) 24.4 % (37.0-47.0); Immature Granulocytes # (auto) 0.36 K/uL (0.01-0.20); Immature Granulocytes % (auto) 1.7 %; Lymphocytes # (auto) 1.67 K/uL (1.20-3.40); Lymphocytes % (auto) 7.7 %; Mean Corpuscular Hemoglobin 32.5 pg (25.0-34.0); Mean Corpuscular Hgb Conc 36.9 g/dL (32.0-36.0); Mean Corpuscular Volume 88.1 fL (80.0-100.0); Mean Platelet Volume 10.1 fL (9.4-12.4); Monocytes # (auto) 1.67 K/uL (0.11-0.59); Monocytes % (auto) 7.7 %; Platelet Count 135 K/uL (130-400); RDW Coefficient of Variation 12.2 % (11.5-14.5); RDW Standard Deviation 39.5 fL (36.4-46.3); Red Blood Count 2.77 M/uL (4.20-5.40)
[2024-03-03] MEDS: DIPHTHER/TETAN/PERTUS Vaccine (Tdap, Adol/Adult) 0.5mL IM ONE (07:23)
--- NOTE | 2024-03-03 08:56 | Obstetrical Progress Note ---
Date of Service March 03, 2024 Assessment & Plan Admission and Anticipated Discharge Date Admission Date: March 01, 2024 Subjective Patient is seen and examined. She feels well, no complaints. Ambulating without dizziness Voiding without difficulty Tolerating regular diet with out N&V Bleeding is minimal No fever/ chills/ CP/ SOB/ N&V/ Leg pain Breast and bottle feeding without problems Vital Signs Temp Pulse Pulse Resp BP BP Pulse Ox 03/03/24 03:30 36.8 C 91 H 20 98/62 L 98 03/02/24 23:00 36.5 C 119 H 20 133/85 98 03/02/24 22:50 36.8 C 03/02/24 22:45 18 03/02/24 22:43 105 H 141/86 H 03/02/24 22:28 111 H 113/76 03/02/24 22:15 18 03/02/24 22:13 105 H 110/76 03/02/24 21:58 104 H 122/72 03/02/24 21:45 18 03/02/24 21:43 97 H 118/72 03/02/24 21:30 18 03/02/24 21:30 123 H 148/76 H 03/02/24 21:15 18 03/02/24 21:13 106 H 136/63 03/02/24 21:00 18 03/02/24 20:58 115 H 142/57 H O2 Del Method 03/03/24 03:30 Room Air 03/02/24 23:00 Room Air 03/02/24 22:50 03/02/24 22:45 03/02/24 22:43 03/02/24 22:28 03/02/24 22:15 03/02/24 22:13 03/02/24 21:58 03/02/24 21:45 03/02/24 21:43 03/02/24 21:30 03/02/24 21:30 03/02/24 21:15 03/02/24 21:13 03/02/24 21:00 03/02/24 20:58 Lab Results 03/01/24 03/01/24 03/03/24 Range/Units 09:26 Unknown 05:47 WBC 10.14 21.80 H (4.8-10.8) K/ul RBC 4.25 2.77 L (4.20-5.40) M/uL Hgb 13.4 9.0 L D (12.0-16.0) g/dl Hct 37.4 24.4 L (37.0-47.0) % MCV 88.0 88.1 (80.0-100.0) fL MCH 31.5 32.5 (25.0-34.0) pg MCHC 35.8 36.9 H (32.0-36.0) g/dL RDW Std Deviation 39.6 39.5 (36.4-46.3) fL RDW Coeff of Mandi 12.4 12.2 (11.5-14.5) % Plt Count 169 135 (130-400) K/uL MPV 9.8 10.1 (9.4-12.4) fL Immature Gran % (Auto) 1.7 % Neut % (Auto) 82.0 % Lymph % (Auto) 7.7 % [place] % (Auto) 7.7 % Eos % (Auto) 0.6 % Baso % (Auto) 0.3 % Neut # (Auto) 17.90 H (1.40-6.50) K/uL Lymph # (Auto) 1.67 (1.20-3.40) K/uL [place] # (Auto) 1.67 H (0.11-0.59) K/uL Eos # (Auto) 0.14 (0.00-0.50) K/uL Baso # (Auto) 0.06 (0.00-0.20) K/uL Immature Gran # (Auto) 0.36 H (0.01-0.20) K/uL Sodium 135 L (136-145) mmol/L Potassium 3.6 (3.5-5.1) mmol/L Chloride 105 (98-107) mmol/L Carbon Dioxide 22 (21-32) mmol/L Anion Gap 8 (3-11) BUN 9 (6-23) mg/dl Creatinine 0.65 (0.6-1.2) mg/dl Est Cr Clr Drug Dosing 111.7 ml/min Est GFR ( Amer) 126.9 ml/min Est GFR (Non-Af Amer) 109.5 ml/min BUN/Creatinine Ratio 13.8 (10-20) Glucose 80 (70-99(Fasting)) mg/dl Calcium 8.5 L (8.6-10.3) mg/dl Total Bilirubin 0.4 (0.2-1.0) mg/dl AST 18 (13-39) U/L ALT 13 (7-52) U/L Alkaline Phosphatase 78 (34-104) U/L Total Protein 6.6 (6.0-8.3) gm/dl Albumin 3.5 (3.4-5.0) gm/dl Globulin 3.1 (2.5-4.0) gm/dl Albumin/Globulin Ratio 1.1 (0.9-2) Ur Random Creatinine 131.7 mg/dl U Random Total Protein 17.4 H (0-11.9) mg/dl Protein/Creatinin Ratio 0.1 (0-0.2) Blood Type A Positive Antibody Screen NEGATIVE PE: General: Alert, orientedx3, NAD Abd: soft, NT, fundus firm, below Umbilicus Perineum intact, Lochia rubra minimal Ext; NT, no edema AP: 43 yo s/p , Manual delivery of placenta, prolonged ROM, on IV AB, ppd# 1 VSS Afebrile doing well Continue routine care All questions were answered D/C home tomorrow Results & Data Vital Signs (Past 12 Hours) Vital Signs Temp Pulse Pulse Resp BP BP Pulse Ox 03/03/24 03:30 36.8 C 91 H 20 98/62 L 98 03/02/24 23:00 36.5 C 119 H 20 133/85 98 03/02/24 22:50 36.8 C 03/02/24 22:45 18 03/02/24 22:43 105 H 141/86 H 03/02/24 22:28 111 H 113/76 03/02/24 22:15 18 03/02/24 22:13 105 H 110/76 03/02/24 21:58 104 H 122/72 03/02/24 21:45 18 03/02/24 21:43 97 H 118/72 03/02/24 21:30 18 03/02/24 21:30 123 H 148/76 H 03/02/24 21:15 18 03/02/24 21:13 106 H 136/63 03/02/24 21:00 18 03/02/24 20:58 115 H 142/57 H O2 Del Method 03/03/24 03:30 Room Air 03/02/24 23:00 Room Air 03/02/24 22:50 03/02/24 22:45 03/02/24 22:43 03/02/24 22:28 03/02/24 22:15 03/02/24 22:13 03/02/24 21:58 03/02/24 21:45 03/02/24 21:43 03/02/24 21:30 03/02/24 21:30 03/02/24 21:15 03/02/24 21:13 03/02/24 21:00 03/02/24 20:58
[2024-03-03] MEDS ORDERED: NON-FORMULARY MEDICATION (Prenat.Vits,Cal,Min-Iron-Folic Tablet) PO SCH (09:00)
[2024-03-03] MEDS: DOCUSATE SODIUM 100 MG CAP PO SCH (09:36)
[2024-03-03] MEDS: PRENATAL VITAMIN 1 TAB PO SCH (09:36)
[2024-03-03] MEDS: FERROUS SULFATE 325 MG TAB PO SCH (09:36)
[2024-03-03] MEDS: SIMETHICONE 80 MG CHEW PO SCH (09:36)
[2024-03-03] MEDS: bisacodyL 5 MG TABEC PO SCH (20:04)
[2024-03-04 06:23] LABS: Basophils # (auto) 0.03 K/uL (0.00-0.20); Basophils % (auto) 0.2 %; Eosinophils # (auto) 0.47 K/uL (0.00-0.50); Eosinophils % (auto) 3.7 %; Hematocrit (blood only) 22.3 % (37.0-47.0); Hemoglobin 7.8 g/dl (12.0-16.0); Immature Granulocytes # (auto) 0.22 K/uL (0.01-0.20); Immature Granulocytes % (auto) 1.7 %; Lymphocytes # (auto) 1.62 K/uL (1.20-3.40); Lymphocytes % (auto) 12.8 %; Mean Corpuscular Hemoglobin 31.8 pg (25.0-34.0); Mean Platelet Volume 10.2 fL (9.4-12.4); Monocytes # (auto) 0.84 K/uL (0.11-0.59); Monocytes % (auto) 6.6 %; Neutrophils # (auto) 9.49 K/uL (1.40-6.50); Nucleated RBC # (auto) 0.02 K/uL (0.00-0.12); Nucleated RBC % (auto) 0.2 %; Platelet Count 121 K/uL (130-400); RDW Coefficient of Variation 12.9 % (11.5-14.5); RDW Standard Deviation 42.4 fL (36.4-46.3); Red Blood Count 2.45 M/uL (4.20-5.40); White Blood Count 12.67 K/ul (4.8-10.8)
[2024-03-04] MEDS: LEVOTHYROXINE SODIUM 25 MCG TABLET PO SCH (06:26)
[2024-03-04 06:49] LABS: Polychromasia 1+
[2024-03-04] MEDS: IRON SUCROSE 200 MG in 0.9 % SODIUM CHLORIDE 100 ML IV ONE (08:33)
--- NOTE | 2024-03-04 09:05 | Obstetrical Progress Note ---
Date of Service March 04, 2024 Subjective Ambulation: ambulating normally Voiding: no voiding problems Passing Gas:: Yes Diet Tolerance:: regular diet Lochia:: Small Feeding Type:: breast feeding Current Pain Level(1-10): 0 doing well. receiving iron infusion. plans for d/c today. Physical Exam Constitutional WD/WN, vitals as above Gastrointestinal (Abdomen) Inspection/Auscultation: abdomen normal to inspection abdomen soft and non-tender. fundus firm below U. Musculoskeletal Extremities: extremities normal to inspection Skin no rashes, warm and dry Neurologic patellar DTR's 2+ bilat, sensation intact Psychiatric A+Ox3, euthymic affect Results & Data Vital Signs (Past 12 Hours) Vital Signs Temp Pulse Resp BP Pulse Ox O2 Del Method 03/03/24 23:00 36.7 C 81 18 108/67 99 Room Air Laboratory Results 03/01/24 03/01/24 03/03/24 09:26 Unknown 05:47 WBC 10.14 21.80 H RBC 4.25 2.77 L Hgb 13.4 9.0 L D Hct 37.4 24.4 L MCV 88.0 88.1 MCH 31.5 32.5 MCHC 35.8 36.9 H RDW Std Deviation 39.6 39.5 RDW Coeff of Mandi 12.4 12.2 Plt Count 169 135 MPV 9.8 10.1 Immature Gran % (Auto) 1.7 Neut % (Auto) 82.0 Lymph % (Auto) 7.7 [place] % (Auto) 7.7 Eos % (Auto) 0.6 Baso % (Auto) 0.3 Neut # (Auto) 17.90 H Lymph # (Auto) 1.67 [place] # (Auto) 1.67 H Eos # (Auto) 0.14 Baso # (Auto) 0.06 Immature Gran # (Auto) 0.36 H Absolute Nucleated RBC Nucleated RBC % (auto) Polychromasia Sodium 135 L Potassium 3.6 Chloride 105 Carbon Dioxide 22 Anion Gap 8 BUN 9 Creatinine 0.65 Est Cr Clr Drug Dosing 111.7 Est GFR ( Amer) 126.9 Est GFR (Non-Af Amer) 109.5 BUN/Creatinine Ratio 13.8 Glucose 80 Calcium 8.5 L Total Bilirubin 0.4 AST 18 ALT 13 Alkaline Phosphatase 78 Total Protein 6.6 Albumin 3.5 Globulin 3.1 Albumin/Globulin Ratio 1.1 Ur Random Creatinine 131.7 U Random Total Protein 17.4 H Protein/Creatinin Ratio 0.1 Blood Type A Positive Antibody Screen NEGATIVE 03/04/24 05:32 WBC 12.67 H RBC 2.45 L Hgb 7.8 L Hct 22.3 L MCV 91.0 MCH 31.8 MCHC 35.0 RDW Std Deviation 42.4 RDW Coeff of Mandi 12.9 Plt Count 121 L MPV 10.2 Immature Gran % (Auto) 1.7 Neut % (Auto) 75.0 Lymph % (Auto) 12.8 [place] % (Auto) 6.6 Eos % (Auto) 3.7 Baso % (Auto) 0.2 Neut # (Auto) 9.49 H Lymph # (Auto) 1.62 [place] # (Auto) 0.84 H Eos # (Auto) 0.47 Baso # (Auto) 0.03 Immature Gran # (Auto) 0.22 H Absolute Nucleated RBC 0.02 Nucleated RBC % (auto) 0.2 Polychromasia 1+ Sodium Potassium Chloride Carbon Dioxide Anion Gap BUN Creatinine Est Cr Clr Drug Dosing Est GFR ( Amer) Est GFR (Non-Af Amer) BUN/Creatinine Ratio Glucose Calcium Total Bilirubin AST ALT Alkaline Phosphatase Total Protein Albumin Globulin Albumin/Globulin Ratio Ur Random Creatinine U Random Total Protein Protein/Creatinin Ratio Blood Type Antibody Screen
[2024-03-04] MEDS: AMOXICILLIN/CLAVULANATE 875 MG TAB PO SCH (10:47)
[2024-03-04] MEDS ORDERED: bisacodyL 10 MG SUPP PR PRN (21:31)
== END 2024-03-04 14:45 | disposition home or self-care (01) | DRG 807 ==
LOC: OPB 08:38 → 4S1 08:42 → 4E2 03-02 23:36